=== PATIENT | male | born 1970 | race Caucasian/White ===

== ENCOUNTER 2016-05-15 13:26 | Inpatient (IN) ==
--- NOTE | 2016-05-15 13:57 | Emergency Department Note ---
Disposition Clinical Impression: DKA (diabetic ketoacidoses) Disposition: Admitted As Inpatient Condition: Fair Referrals: NO,PCP [Non-Partnered Physician] - Forms: ED Satisfaction Letter General Adult HPI - General Chief complaint: ED Nausea/Vomiting/Diarrhea Stated complaint: DKA Time Seen by Provider: 05/15/16 13:35 Source: patient, family Limitations: no limitations - History of Present Illness HPI Narrative: 46-year-old male reports to the emergency department complaining of high blood sugars. He has a history of type 1 diabetes and has insulin pump. The patient reports he has been in DKA twice before. The patient reports his blood sugar was checked and it was over 600. He has felt poorly and nauseated. The patient has had no chest pain shortness of breath cough coughing up blood or syncope. There is no history of trauma or morena abdominal pain. No bloody emesis or stool as described. There is no history of fever. The patient reports he gave himself an insulin bolus, is also been drinking as much fluid as he can to try to decrease his blood sugar. There is no history of convulsion or confusion or trouble moving the arms or legs independently. He is here with his father. The patient lives at home. His father brought him in. There is no history of back pain. No history of dysarthria. No other complaints or concerns. Onset (ago): hour(s) Pain Scale: 4 - Related Data Home Medications Medication Instructions Recorded Confirmed Escitalopram Oxalate 2.5 mg PO DAILY 11/27/15 11/27/15 Glucagon, Human Recombinant 1 mg IJ PRN PRN 11/27/15 11/27/15 [GlucaGen] Insulin LISPRO [HumaLOG] 0 units SQ PRN PRN 11/27/15 11/27/15 Allergies Allergy/AdvReac Type Severity Reaction Status Date / Time No Known Allergies Allergy Verified 05/15/16 13:29 All systems ED: reviewed and negative except as stated. Past Medical History - Past Medical History Source: patient Medical history: Reports: diabetes, other Surgical history: Reports: other Psychiatric history: Reports: no psych history - Social History Smoking Status: Never smoker Smokeless Tobacco Status: No Alcohol use: Reports: rarely Drug use: Reports: none Physical Exam - General Limitations: no limitations General appearance: alert, in distress - Head Head exam: atraumatic, normocephalic, normal inspection - Eye Eye exam: Present: normal appearance, PERRL, EOMI - ENT ENT exam: normal exam, normal oropharynx, mucous membranes moist, normal external ear exam - Neck Neck exam: Present: normal inspection, full ROM, trachea midline - Chest Chest inspection: Present: symmetric chest wall rise. Absent: tenderness - Respiratory Respiratory exam: Present: normal lung sounds bilaterally. Absent: respiratory distress - Cardiovascular Cardiovascular exam: Present: regular rate, normal rhythm, normal heart sounds - Abdominal Exam Abdominal exam: Present: soft, Non-Tender. Absent: tenderness, distention, guarding, rebound, rigidity - Extremities Exam Extremities exam: Present: normal inspection, full ROM, normal capillary refill. Absent: tenderness, pedal edema, joint swelling, calf tenderness - Expanded Lower Extremity Exam Hip/Pelvis exam: Present: normal inspection Neurovascular/Tendon exam: Absent: motor deficit, sensory deficit, tendon deficit - Back Exam Back exam: Present: normal inspection, full ROM. Absent: tenderness, CVA tenderness (R), CVA tenderness (L) - Neurological Exam Neurological exam: Present: alert, oriented X3, CN II-XII intact. Absent: motor sensory deficit - Skin Skin exam: Present: warm, dry, intact, normal color. Absent: rash, cyanosis, diaphoresis, erythema, pallor, mottled Course Vital Signs Temperature 97.0 F L 05/15/16 13:27 Pulse Rate 81 05/15/16 13:27 Respiratory Rate 18 05/15/16 13:27 Blood Pressure 106/63 05/15/16 13:27 O2 Sat by Pulse Oximetry 98 05/15/16 13:27 Temperature 97.0 F L 05/15/16 13:27 Pulse Rate 81 05/15/16 16:29 Respiratory Rate 18 05/15/16 16:29 Blood Pressure 125/61 05/15/16 16:29 O2 Sat by Pulse Oximetry 97 05/15/16 16:29 Oxygen Delivery Oxygen Delivery Room Air Medical Decision Making - [facility] Narrative Medical decision making narrative: The patient appears to be in DKA, the patient was given IV fluids and anti- medics. He had dosed himself several times with his home insulin pump. His initial glucose was on the rise but then decreased. An insulin drip has been ordered. The patient appears to be stable. Based on his significant acidosis, known type 1 diabetes, and apparent acute DKA, I consulted the hospitalist product control and logistics analyst who has accepted the patient to their care and he will be admitted to the hospital.. - Lab Data Lab results reviewed: Yes I reviewed the patient's lab results. Result diagrams: 05/15/16 14:02 05/15/16 14:02 Lab Results 05/15/16 05/15/16 05/15/16 Range/Units 13:47 14:02 14:02 WBC 11.3 H (4.3-11.1) K/mcL RBC 5.22 (4.19-5.50) M/mcL Hgb 15.5 (12.9-16.9) g/dL Hct 45.4 (37.5-50.1) % MCV 87.0 (83.0-100.0) fL MCH 29.7 (28.0-33.3) pg MCHC 34.1 (31.6-35.5) g/dL RDW 12.0 (11.5-14.5) % Plt Count 204 (140-400) K/mcL MPV 9.7 (9.4-12.4) fL Immature Gran % 0.3 (0-4) % Seg Neutrophils % 71.5 % Lymphocytes % 23.1 % Monocytes % 4.3 % Eosinophils % 0.4 % Basophils % 0.4 % Neutrophils # 8.1 (1.6-8.9) K/mcL Lymphocytes # 2.6 (0.6-4.6) K/mcL Monocytes # 0.5 (0.0-1.3) K/mcL Eosinophils # 0.0 (0.0-0.6) K/mcL Basophils # 0.0 (0.0-0.2) K/mcL VBG pH (7.32-7.42) pH Units VBG pCO2 (41-51) mmHg VBG pO2 (25-40) mmHg VBG HCO3 (21-27) mEq/L Sodium 133 L (136-145) mEq/L Potassium 4.8 H (3.5-4.5) mEq/L Chloride 98 (98-109) mEq/L Carbon Dioxide 13 L (19-29) mEq/L BUN 20 (8-26) mg/dL Creatinine 1.43 H (0.72-1.25) mg/dL Est GFR ( Amer) > 60 (> 60) Est GFR (Non-Af Amer) 53 L (> 60) BUN/Creatinine Ratio 14 (6-26) Glucose 433 H (70-99) mg/dL POC Glucose 387 H (58-89) Calculated Osmolality 297 (280-300) Calcium 9.7 (8.6-10.8) mg/dL Phosphorus 4.8 H (2.3-4.7) mg/dL Magnesium 2.1 (1.6-2.6) mg/dL Total Bilirubin 1.0 (0.2-1.2) mg/dL Direct Bilirubin 0.3 (0.0-0.5) mg/dL Indirect Bilirubin 0.7 (0.0-1.2) mg/dL AST 25 (5-34) Units/L ALT 33 (0-55) Units/L Alkaline Phosphatase 103 (38-126) Units/L Serum Total Protein 8.6 H (6.0-8.3) g/dL Albumin 4.4 (3.5-5.0) g/dL Globulin 4.2 H (2.4-3.5) g/dL Albumin/Globulin Ratio 1.0 L (1.1-2.2) Lipase 13 (8-78) Units/L Beta-Hydroxybutyric Acd > 2.00 H (0.02-0.27) mmol/L 05/15/16 05/15/16 Range/Units 16:26 16:43 WBC (4.3-11.1) K/mcL RBC (4.19-5.50) M/mcL Hgb (12.9-16.9) g/dL Hct (37.5-50.1) % MCV (83.0-100.0) fL MCH (28.0-33.3) pg MCHC (31.6-35.5) g/dL RDW (11.5-14.5) % Plt Count (140-400) K/mcL MPV (9.4-12.4) fL Immature Gran % (0-4) % Seg Neutrophils % % Lymphocytes % % Monocytes % % Eosinophils % % Basophils % % Neutrophils # (1.6-8.9) K/mcL Lymphocytes # (0.6-4.6) K/mcL Monocytes # (0.0-1.3) K/mcL Eosinophils # (0.0-0.6) K/mcL Basophils # (0.0-0.2) K/mcL VBG pH 7.12 L* (7.32-7.42) pH Units VBG pCO2 35 L (41-51) mmHg VBG pO2 145 H (25-40) mmHg VBG HCO3 11.4 L (21-27) mEq/L Sodium (136-145) mEq/L Potassium (3.5-4.5) mEq/L Chloride (98-109) mEq/L Carbon Dioxide (19-29) mEq/L BUN (8-26) mg/dL Creatinine (0.72-1.25) mg/dL Est GFR ( Amer) (> 60) Est GFR (Non-Af Amer) (> 60) BUN/Creatinine Ratio (6-26) Glucose (70-99) mg/dL POC Glucose 343 H (58-89) Calculated Osmolality (280-300) Calcium (8.6-10.8) mg/dL Phosphorus (2.3-4.7) mg/dL Magnesium (1.6-2.6) mg/dL Total Bilirubin (0.2-1.2) mg/dL Direct Bilirubin (0.0-0.5) mg/dL Indirect Bilirubin (0.0-1.2) mg/dL AST (5-34) Units/L ALT (0-55) Units/L Alkaline Phosphatase (38-126) Units/L Serum Total Protein (6.0-8.3) g/dL Albumin (3.5-5.0) g/dL Globulin (2.4-3.5) g/dL Albumin/Globulin Ratio (1.1-2.2) Lipase (8-78) Units/L Beta-Hydroxybutyric Acd (0.02-0.27) mmol/L
[2016-05-15] MEDS ORDERED: Insulin Human Regular 100 UNIT in 0.9 % Sodium Chloride 100 ML IVC SCH ×3 (14:00→20:45)
[2016-05-15] MEDS ORDERED: 0.9 % Sodium Chloride 1,000 ML IVC SCH ×2 (14:00→18:30)
[2016-05-15 14:08] LABS: Basophils % 0.4 %; Eosinophils % 0.4 %; Hematocrit 45.4 % (37.5-50.1); Hemoglobin 15.5 g/dL (12.9-16.9); Immature Granulocytes % 0.3 % (0-4); Lymphocytes # 2.6 K/mcL (0.6-4.6); Lymphocytes % 23.1 %; Mean Corpuscular HGB Conc 34.1 g/dL (31.6-35.5); Mean Corpuscular Hemoglobin 29.7 pg (28.0-33.3); Mean Platelet Volume 9.7 fL (9.4-12.4); Monocytes # 0.5 K/mcL (0.0-1.3); Monocytes % 4.3 %; Neutrophils # 8.1 K/mcL (1.6-8.9); Platelet Count 204 K/mcL (140-400); Red Blood Count 5.22 M/mcL (4.19-5.50); Segmented Neutrophils % 71.5 %
[2016-05-15] MEDS ORDERED: Ondansetron 4 MG/2 ML VIAL IVP ONE (14:09)
[2016-05-15 14:19] LABS: BUN/Creatinine Ratio 14 (6-26); Blood Urea Nitrogen 20 mg/dL (8-26); Calcium 9.7 mg/dL (8.6-10.8); Carbon Dioxide 13 mEq/L (19-29); Chloride 98 mEq/L (98-109); Glucose 433 mg/dL (70-99); Magnesium 2.1 mg/dL (1.6-2.6); Osmolality,Calculated 297 (280-300); Phosphorous 4.8 mg/dL (2.3-4.7); Potassium 4.8 mEq/L (3.5-4.5); Sodium 133 mEq/L (136-145); eGFR For African Americans > 60 (> 60); eGFR For Non-African Americans 53 (> 60)
[2016-05-15 14:21] LABS: Beta-Hydroxybutyric Acid > 2.00 mmol/L (0.02-0.27)
[2016-05-15 14:34] LABS: Alanine Aminotransferase 33 Units/L (0-55); Albumin 4.4 g/dL (3.5-5.0); Alkaline Phosphatase 103 Units/L (38-126); Aspartate Amino Transferase 25 Units/L (5-34); Bilirubin,Direct 0.3 mg/dL (0.0-0.5); Bilirubin,Indirect 0.7 mg/dL (0.0-1.2); Globulin 4.2 g/dL (2.4-3.5); Lipase 13 Units/L (8-78); Total Protein 8.6 g/dL (6.0-8.3)
[2016-05-15] MEDS ORDERED: *HR* Promethazine 25 MG/ML VIAL IVP ONE (15:57)
[2016-05-15] MEDS: 0.9 % Sodium Chloride 1,000 ML IVC SCH ×2 (16:03→17:20)
[2016-05-15] MEDS ORDERED: Insulin Human Regular 10 UNIT in 0.9 % Sodium Chloride 10 ML IV ONE (16:21)
[2016-05-15 16:38] LABS: VBG HCO3 11.4 mEq/L (21-27)
[2016-05-15 16:40] LABS: VBG PH 7.12 pH Units (7.32-7.42)
[2016-05-15] MEDS ORDERED: *HR* Morphine 2 MG/ML SYRINGE IVP PRN (18:15)
[2016-05-15] MEDS ORDERED: Acetaminophen 325 MG TABLET PO PRN (18:15)
[2016-05-15] MEDS ORDERED: Ondansetron 4 MG/2 ML VIAL IVP PRN (18:15)
[2016-05-15] MEDS ORDERED: Naloxone 0.4 MG/ML INJ IVP PRN (18:15)
[2016-05-15] MEDS ORDERED: Insulin Regular, Human 100 UNIT/ML IV SCH (18:30)
--- NOTE | 2016-05-15 18:46 | Internal Med History&Physical ---
Date of Encounter: 05/15/16 Time of Encounter: 18:00 Assessment and Plan (1) DKA (diabetic ketoacidoses) Current visit: Yes Status: Acute Aggressive IV hydration. Start IV insulin infusion protocol with frequent Accuchecks and Q4hrly BMP monitoring; monitor urine output and vitals closely; check and replete electrolytes; keep NPO for now, hold subcutaneous insulin pump ; high risk condition; Qualifiers: Diabetes mellitus type: type 1 Diabetes mellitus complication detail: without coma Qualified Code(s): E10.10 - Type 1 diabetes mellitus with ketoacidosis without coma (2) Type I diabetes mellitus Current visit: Yes Status: Chronic Check HbA1C; diabetes clinical manager consult; Qualifiers: Diabetes mellitus complication status: with ketoacidosis Diabetes mellitus complication detail: without coma Qualified Code(s): E10.10 - Type 1 diabetes mellitus with ketoacidosis without coma Internal Medicine - H&P: HPI Chief complaint: Weakness, nausea, elevated blood sugars Admitted From: Emergency Dept Plans for Post Hospital Care: Home History of present illness: Mr. Michel is a 46 year old male with h/o- Type 1 DM, on insulin pump, presents with c/o- possibly being in DKA. Patient reports that there has been no recent change in his insulin dosing or dietary or medical noncompliance but he did start new pills for indigestion recently and attributes his condition to them. His blood sugars have been above 600 since yesterday and he took extra boluses of insulin through his pump with no improvement in blood sugars. He started feeling dehydrated with polyuria and polydipsia, nausea and generalized weakness. He just felt very sick and miserable and presented to ER. No chest/abdominal pain, no fever, cough, burning micturition/hematuria/dysuria; Past Med Surg Social Fam HX - Past Medical History Medical history: diabetes (type 1), other Psychiatric history: no psych history - Past Surgical History Surgical History: other (tonsillectomy and adenoidectomy) - Social History Smoking Status: Never smoker Smokeless Tobacco Status: No Alcohol use: rarely Drug use: none Occupational status: employed Current living situation: Home - Independent Activity Level: Independent ambulation Recent Out of Country Travel Within the Last 8 Weeks: No Exposure or Possible Exposure to Illness During Travel: No - Family History Mother Hx Family Autoimmune Disorders: Yes (RA) Father Hx Family Autoimmune Disorders: Yes (Grave's disease) Internal Medicine - H&P: Meds Insulin LISPRO [HumaLOG] 0 units SQ PRN PRN 11/27/15 [History] Allergies No Known Allergies Allergy (Verified 05/15/16 13:29) All Systems PM: A 10-system review of systems was performed and is negative for pertinent findings except as documented above in the HPI. - Constitutional Constitutional: fatigue, malaise, weakness - EENT Eyes: no change in vision, no discharge, no pain, no photophobia Ears: no ear discharge, no ear pain, no tinnitus Nose, mouth and throat: no dysphagia, no nasal discharge, no neck pain, no sore throat - Cardiovascular Cardiovascular ROS IM: no chest pain, no diaphoresis, no dyspnea, no lightheadedness, no palpitations, no syncope - Respiratory Respiratory: no cough, no dyspnea, no wheezing, no excessive phlegm production - Gastrointestinal Gastrointestinal: nausea - Musculoskeletal Musculoskeletal ROS IM: no numbness, no tingling - Integumentary Integumentary IM: no rash, no unusual bruising - Neurological Neurological ROS: no confusion, no convulsions, no focal weakness, no numbness, no tingling, no tremor(s) - Hematologic/Lymphatic Hematologic/Lymphatic: no easy bruising - Constitutional Vitals: Temp Pulse Resp BP Pulse Ox 97.0 F L 81 18 125/61 97 05/15/16 13:27 05/15/16 16:29 05/15/16 16:29 05/15/16 16:29 05/15/16 16:29 General appearance: Present: mild distress, A&O X 3 (slightly drowsy but able to answer appropriately), answers questions appropriately - Head Head exam: Present: atraumatic, normocephalic - Neck Neck exam general surgery: Present: supple, trachea midline. Absent: lymphadenopathy - Respiratory Respiratory exam: Present: CTAB. Absent: accessory muscle use, rales, rhonchi, wheezes - Cardiovascular Cardiovascular exam: Present: RRR, +S1, +S2, tachycardia. Absent: diastolic murmur, gallop, rubs, systolic murmur - GI/Abdominal GI/Abdominal exam: Present: normal bowel sounds, soft, no peritoneal signs. Absent: distended, tenderness - Extremities Exam Extremities exam: Present: full ROM, warm, radial pulses palpable and symetrical. Absent: calf tenderness, cyanotic, pedal edema - Neurological Exam Neurological exam: Present: CN II-XII intact, oriented X3, no focal deficits. Absent: pronater drift, facial droop, speech deficit - Skin Skin exam: Present: dry, intact Internal Med - H&P Results - Labs CBC & Chem 7: 05/16/16 04:56 05/16/16 04:56
[2016-05-15 19:46] LABS: BUN/Creatinine Ratio 17 (6-26); Blood Urea Nitrogen 21 mg/dL (8-26); Calcium 8.6 mg/dL (8.6-10.8); Carbon Dioxide 12 mEq/L (19-29); Chloride 106 mEq/L (98-109); Glucose 303 mg/dL (70-99); Osmolality,Calculated 296 (280-300); Potassium 4.9 mEq/L (3.5-4.5); Sodium 136 mEq/L (136-145); eGFR For African Americans > 60 (> 60); eGFR For Non-African Americans > 60 (> 60)
[2016-05-15] MEDS ORDERED: 0.9 % Sodium Chloride w KCl 20 MEQ/1,000 ML MLS IVC ONE (20:23)
[2016-05-15] MEDS ORDERED: 0.9 % Sodium Chloride w KCl 20 MEQ/1,000 ML MLS IVC SCH (20:45)
[2016-05-15] MEDS: D5% in 0.45% NACL w KCl 20 MEQ/1,000 ML MLS IVC PRN (22:40)
[2016-05-15] MEDS: Insulin Human Regular 100 UNIT in 0.9 % Sodium Chloride 100 ML IVC SCH (22:43)
[2016-05-15 22:45] LABS: BUN/Creatinine Ratio 17 (6-26); Blood Urea Nitrogen 19 mg/dL (8-26); Calcium 8.5 mg/dL (8.6-10.8); Carbon Dioxide 12 mEq/L (19-29); Chloride 109 mEq/L (98-109); Glucose 175 mg/dL (70-99); Osmolality,Calculated 285 (280-300); Potassium 4.6 mEq/L (3.5-4.5); Sodium 134 mEq/L (136-145); eGFR For African Americans > 60 (> 60); eGFR For Non-African Americans > 60 (> 60)
[2016-05-16] MEDS ORDERED: 0.9 % Sodium Chloride 250 ML ONE (00:35)
[2016-05-16] MEDS: D5% in 0.45% NACL w KCl 20 MEQ/1,000 ML MLS IVC PRN (02:40)
[2016-05-16] MEDS: *HR* Dextrose 50 % in Water (Syg) 50 ML SYRINGE IVP PRN ×2 (03:37→04:32)
[2016-05-16] MEDS: Insulin Human Regular 100 UNIT in 0.9 % Sodium Chloride 100 ML IVC SCH (03:38)
[2016-05-16 05:16] LABS: Basophils % 0.2 %; Eosinophils # 0.1 K/mcL (0.0-0.6); Eosinophils % 0.8 %; Hematocrit 36.9 % (37.5-50.1); Immature Granulocytes % 0.5 % (0-4); Lymphocytes # 2.1 K/mcL (0.6-4.6); Lymphocytes % 21.8 %; Mean Corpuscular HGB Conc 34.7 g/dL (31.6-35.5); Mean Corpuscular Hemoglobin 29.7 pg (28.0-33.3); Mean Corpuscular Volume 85.6 fL (83.0-100.0); Mean Platelet Volume 9.7 fL (9.4-12.4); Monocytes # 1.3 K/mcL (0.0-1.3); Monocytes % 13.7 %; Neutrophils # 6.1 K/mcL (1.6-8.9); Platelet Count 198 K/mcL (140-400); Red Blood Count 4.31 M/mcL (4.19-5.50); Red Cell Distribution Width 12.1 % (11.5-14.5)
[2016-05-16 05:19] LABS: VBG PH 7.34 pH Units (7.32-7.42)
[2016-05-16 05:33] LABS: Hemoglobin A1C 10.6 %
[2016-05-16 05:44] LABS: Hemoglobin 12.8 g/dL (12.9-16.9)
[2016-05-16 05:48] LABS: BUN/Creatinine Ratio 14 (6-26); Blood Urea Nitrogen 15 mg/dL (8-26); Calcium 8.2 mg/dL (8.6-10.8); Carbon Dioxide 19 mEq/L (19-29); Chloride 110 mEq/L (98-109); Glucose 139 mg/dL (70-99); Osmolality,Calculated 283 (280-300); Potassium 4.2 mEq/L (3.5-4.5); Sodium 135 mEq/L (136-145); eGFR For African Americans > 60 (> 60); eGFR For Non-African Americans > 60 (> 60)
[2016-05-16] MEDS ORDERED: *HR* Heparin 5,000 UNIT/ML VIAL SQ SCH (06:00)
[2016-05-16] MEDS ORDERED: D5% in Water 1,000 ML IV PRN ×2 (06:28→07:15)
[2016-05-16] MEDS ORDERED: Dextrose Gel 15 GM PO PRN ×2 (06:28)
[2016-05-16] MEDS ORDERED: *HR* Dextrose 50 % in Water (Syg) 50 ML SYRINGE IVP PRN (06:28)
[2016-05-16] MEDS ORDERED: Insulin DETEMIR 100 UNIT/ML X5UNITS SQ STA (06:30)
[2016-05-16 07:24] VITALS: BP 91/61
[2016-05-16] MEDS ORDERED: Insulin LISPRO 300 UNITS/3 ML VIAL SQ SCH ×2 (07:30→21:00)
[2016-05-16] MEDS ORDERED: Pantoprazole 40 MG VIAL IVP SCH (09:00)
--- NOTE | 2016-05-16 09:19 | Discharge Summary ---
Date of Encounter: 05/16/16 Time of Encounter: 09:17 - Discharge Diagnosis (1) DKA (diabetic ketoacidoses) Priority: Primary Status: Acute Comments: Likely secondary to acute gastroenteritis Qualifiers: Diabetes mellitus type: type 1 Diabetes mellitus complication detail: without coma Qualified Code(s): E10.10 - Type 1 diabetes mellitus with ketoacidosis without coma (2) Gastroenteritis Priority: Primary Status: Acute Comments: Acute gastroenteritis Possibly viral, improving (3) Leukocytosis Priority: Secondary Status: Acute Comments: Secondary to gastroenteritis Qualifiers: Leukocytosis type: unspecified Qualified Code(s): D72.829 - Elevated white blood cell count, unspecified (4) Acute renal failure Priority: Primary Status: Acute Comments: Secondary to dehydration Qualifiers: Acute renal failure type: unspecified Qualified Code(s): N17.9 - Acute kidney failure, unspecified (5) Dehydration Priority: Secondary Status: Acute (6) Type I diabetes mellitus Priority: Secondary Status: Chronic Qualifiers: Diabetes mellitus complication status: with ketoacidosis Diabetes mellitus complication detail: without coma Qualified Code(s): E10.10 - Type 1 diabetes mellitus with ketoacidosis without coma (7) High anion gap metabolic acidosis Priority: Primary Status: Acute - Discharge Medications Home Medications: Insulin LISPRO [HumaLOG] 0 units SQ PRN PRN 11/27/15 [History] Allergies/Adverse Reactions: Allergies No Known Allergies Allergy (Verified 05/15/16 13:29) Date of admission: 05/15/16 19:08 Primary care physician: Jenaro Doherty MD - Patient Status Disposition: Home, Self-Care Condition: Good Overall status at discharge: patient is progressing back to baseline - Discharge Instructions Follow Up With: Jenaro Doherty MD [Primary Care Provider] - 05/23/16 10:15 am Additional Instructions: Follow with primary care physician within the next 7 days. Continue insulin pump. Drink plenty of fluids. - Diet and Activity Activity: increase activity as tolerated Diet: diabetic diet Hospital course: Mr. Michel is a 46 year old male with h/o- Type 1 DM, on insulin pump, presents with c/o- possibly being in DKA. Patient reported that there was no recent change in his insulin dosing or dietary or medical noncompliance but he did start new pills for indigestion recently and attributes his condition to them. His blood sugars have been above 600 since the day before his admission and he took extra boluses of insulin through his pump with no improvement in blood sugars. He started feeling weak, was dehydrated and complaining of polyuria and polydipsia, nausea and generalized weakness. He just felt very sick and miserable and presented to ER. Abdominal pain, nausea have resolved, denies any diarrhea moment. His anion gap was 22 and he is bicarbonate was 12. The patient was started on insulin drip, his anion gap Is closed at the moment (6), bicarbonate is 19. Patient is a stable to be discharged home. Restart insulin pump - Time Spent with Patient Total time spent providing and/or coordinating discharge services: Greater than 30 minutes - Constitutional Vitals: Temp Pulse Resp BP Pulse Ox 98.4 F 79 16 91/61 97 05/16/16 07:21 05/16/16 07:21 05/16/16 07:21 05/16/16 07:21 05/16/16 07:21 General appearance: Present: mild distress, A&O X 3 (slightly drowsy but able to answer appropriately), underweight, answers questions appropriately - Head Head exam: Present: atraumatic, normocephalic - Eye Eye exam: Present: PERRL, conjuntiva pink, sclera anicteric Pupils: Present: PERRL - Neck Neck exam general surgery: Present: supple, trachea midline. Absent: lymphadenopathy - Respiratory Respiratory exam: Present: CTAB. Absent: accessory muscle use, rales, rhonchi, wheezes - Cardiovascular Cardiovascular exam: Present: RRR, +S1, +S2. Absent: diastolic murmur, gallop, rubs, systolic murmur - GI/Abdominal GI/Abdominal exam: Present: normal bowel sounds, soft, no peritoneal signs. Absent: distended, tenderness - Extremities Exam Extremities exam: Present: warm, radial pulses palpable and symetrical. Absent : calf tenderness, cyanotic, pedal edema - Neurological Exam Neurological exam: Present: CN II-XII intact, oriented X3, no focal deficits. Absent: pronater drift, facial droop, speech deficit - Skin Skin exam: Present: dry, intact
--- NOTE | 2016-05-16 16:37 | Electrocardiograph Report ---
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
[2016-05-16] MEDS ORDERED: Insulin DETEMIR 100 UNIT/ML X5UNITS SQ SCH (21:00)
== END 2016-05-16 11:00 | disposition home or self-care (01) | DRG 420 ==
LOC: 2NNU 13:26 → EMEROO 13:26 → 2NNU 18:46 → SUATTDRO 19:08 → 2NNU 20:09
PROVIDERS: ADMIT Internal Medicine; ATTEND Internal Medicine

== ENCOUNTER 2018-04-05 07:49 | Inpatient (IN) ==
[2018-04-05 08:30] LABS: Basophils % 0.3 %; Eosinophils % 0.1 %; Hemoglobin 14.9 g/dL (12.9-16.9); Immature Granulocytes % 0.6 % (0-4); Lymphocytes # 2.1 K/mcL (0.6-4.6); Mean Corpuscular HGB Conc 33.1 g/dL (31.6-35.5); Mean Corpuscular Hemoglobin 29.5 pg (28.0-33.3); Mean Corpuscular Volume 89.1 fL (83.0-100.0); Mean Platelet Volume 9.7 fL (9.4-12.4); Monocytes # 0.4 K/mcL (0.0-1.3); Neutrophils # 7.7 K/mcL (1.6-8.9); Platelet Count 195 K/mcL (140-400); Red Blood Count 5.05 M/mcL (4.19-5.50)
[2018-04-05] MEDS ORDERED: 0.9 % Sodium Chloride 1,000 ML ONE (08:30)
--- NOTE | 2018-04-05 08:37 | Emergency Department Note ---
Disposition Clinical Impression: DKA (diabetic ketoacidoses) Qualifiers: Diabetes mellitus type: type 1 Diabetes mellitus complication detail: without coma Qualified Code(s): E10.10 - Type 1 diabetes mellitus with ketoacidosis without coma Disposition: Admitted As Inpatient Condition: Fair General Adult HPI - General Chief complaint: ED General Medical Stated complaint: DKA Time Seen by Provider: 04/05/18 07:59 Source: patient, family Mode of arrival: private vehicle Limitations: no limitations Nursing Notes Reviewed: Yes Vital Signs Reviewed: Yes - History of Present Illness Pt Subjective Complaint: "My ketones are up and I feel terrible" Onset (ago): hour(s) (since last night) Location: other (generalized malaise, nausea) Radiation: non-radiation Pain Severity: moderate Pain Scale: 7 Quality: other (nauseated) Consistency: constant Improves with: nothing Worsens with: nothing Associated symptoms: Reports: malaise, nausea/vomiting. Denies: confusion, chest pain, cough, diaphoresis, fever/chills, headaches, loss of appetite, rash, seizure, shortness of breath, syncope, weakness Treatments Prior to Arrival: other (patient was here for 2 days for treatment of DKA. D/C'd yesterday) - Related Data Home Medications Medication Instructions Recorded Confirmed RX: Subcutaneous Insulin Pump 1 each MC AD 04/03/18 04/05/18 [T:Slim] Allergies Allergy/AdvReac Type Severity Reaction Status Date / Time No Known Allergies Allergy Verified 04/05/18 07:56 All systems ED: reviewed and negative except as stated. Review of Systems: As Per HPI Constitutional: Denies: fever, chills, weakness Eyes: Denies: eye pain, eye discharge ENT ED: Denies: ear pain, throat pain, dysphagia Cardiovascular: Denies: chest pain, palpitations Respiratory: Denies: cough, dyspnea, wheezes Gastrointestinal: Reports: as per HPI, nausea, vomiting. Denies: abdominal pain, diarrhea, constipation Genitourinary: Denies: urgency, dysuria, frequency Musculoskeletal: Denies: joint swelling, arthralgia Integumentary: Denies: rash Neurological: Denies: headache, weakness, numbness, paresthesias, vertigo Endocrine: Reports: fatigue Hematological/Lymphatic: Denies: easy bleeding, easy bruising, lymphadenopathy Allergic/Immunologic: Denies: facial swelling Past Medical History - Past Medical History Attestation: Yes The following information was validated with the patient. Source: patient, old records reviewed, obtained from family Medical history: Reports: diabetes, other Surgical history: Reports: other Psychiatric history: Reports: no psych history - Social History Smoking Status: Never smoker Smokeless Tobacco Status: No Alcohol use: Reports: rarely Drug use: Reports: none Physical Exam - General Limitations: no limitations General appearance: alert, anxious - Head Head exam: atraumatic, normocephalic, normal inspection - Eye Eye exam: Present: normal appearance, PERRL. Absent: scleral icterus, conjunctival injection, periorbital swelling - ENT ENT exam: mucous membranes dry - Neck Neck exam: Present: normal inspection, full ROM, trachea midline. Absent: tenderness, meningismus, lymphadenopathy - Chest Chest inspection: Present: normal inspection - Respiratory Respiratory exam: Present: normal lung sounds bilaterally. Absent: respiratory distress - Cardiovascular Cardiovascular exam: Present: normal rhythm, tachycardia - Abdominal Exam Abdominal exam: Present: soft, Non-Tender. Absent: distention, guarding, rebo und, rigidity, mass, pulsatile mass - Extremities Exam Extremities exam: Present: normal inspection, full ROM, normal capillary refill - Neurological Exam Neurological exam: Present: alert, oriented X3, CN II-XII intact, normal gait - Psychiatric Psychiatric exam: Present: normal affect, anxious - Skin Skin exam: Present: warm, dry, intact, normal color Course Course Narrative: Patient is brought to the ER by his father for evaluation of elevated blood sugar and ketones in the urine. He states he was discharged from here yesterday and since last night his sugar has been elevated. He has had ketones in his urine along with significant nausea, several episodes of nonbloody, nonbilious emesis and generalized malaise. He denies cough, chest pain, shortness of breath, URI symptoms, abdominal pain, dysuria, diarrhea, rashes, joint pain or swelling. Patient was interviewed and examined. I see no obvious signs of an infectious process. He is mildly tachycardic. Otherwise, vitals are normal. Labs, antiemetics and fluids have been ordered. Patient's nausea is better. He is resting comfortably. He is tolerating by mouth fluids. His labs show significant acidosis and ketosis. Blood sugars greater than 500. Additional fluids ordered along with an insulin drip. Patient will require admission for further evaluation and treatment. Hospitalist has been paged. Case discussed with Dr. Valdovinos. He has had [id number] time with the patient and agrees with the assessment and plan. Vital Signs Temperature 97.5 F L 04/05/18 07:55 Pulse Rate 116 04/05/18 07:55 Respiratory Rate 18 04/05/18 07:55 Blood Pressure 130/71 04/05/18 07:55 O2 Sat by Pulse Oximetry 100 04/05/18 07:55 Temperature 98.0 F 04/05/18 16:00 Pulse Rate 104 04/05/18 14:30 Respiratory Rate 18 04/05/18 14:30 Blood Pressure 128/81 04/05/18 14:30 O2 Sat by Pulse Oximetry 100 04/05/18 14:30 Oxygen Delivery Oxygen Delivery Room Air Medical Decision Making - Medical Records Medical records reviewed: Yes I reviewed the patient's medical records. - Lab Data Lab results reviewed: Yes I reviewed the patient's lab results. Lab results narrative: Laboratory Last Values WBC 10.2 K/mcL (4.3-11.1) 04/05/18 08:14 RBC 5.05 M/mcL (4.19-5.50) 04/05/18 08:14 Hgb 14.9 g/dL (12.9-16.9) 04/05/18 08:14 Hct 45.0 % (37.5-50.1) 04/05/18 08:14 MCV 89.1 fL (83.0-100.0) 04/05/18 08:14 MCH 29.5 pg (28.0-33.3) 04/05/18 08:14 MCHC 33.1 g/dL (31.6-35.5) 04/05/18 08:14 RDW 13.0 % (11.5-14.5) 04/05/18 08:14 Plt Count 195 K/mcL (140-400) 04/05/18 08:14 MPV 9.7 fL (9.4-12.4) 04/05/18 08:14 Immature Gran % 0.6 % (0-4) 04/05/18 08:14 Seg Neutrophils % 75.0 % 04/05/18 08:14 Lymphocytes % 20.0 % 04/05/18 08:14 Monocytes % 4.0 % 04/05/18 08:14 Eosinophils % 0.1 % 04/05/18 08:14 Basophils % 0.3 % 04/05/18 08:14 Neutrophils # 7.7 K/mcL (1.6-8.9) 04/05/18 08:14 Lymphocytes # 2.1 K/mcL (0.6-4.6) 04/05/18 08:14 Monocytes # 0.4 K/mcL (0.0-1.3) 04/05/18 08:14 Eosinophils # 0.0 K/mcL (0.0-0.6) 04/05/18 08:14 Basophils # 0.0 K/mcL (0.0-0.2) 04/05/18 08:14 Sample Site R Radial 04/05/18 09:18 ABG pH 7.10 pH Units (7.32-7.45) L* 04/05/18 09:18 ABG pCO2 13 mmHg (35-45) L* 04/05/18 09:18 ABG pO2 118 mmHg (85-104) H 04/05/18 09:18 ABG HCO3 4 mEq/L (21-27) L 04/05/18 09:18 ABG Total CO2 < 5 mEq/L (20-26) L 04/05/18 09:18 ABG O2 Saturation 97 % (95-98) 04/05/18 09:18 ABG Base Excess -23 mEq/L (-2 to 3) L 04/05/18 09:18 Santiago Test Positive 04/05/18 09:18 O2 Delivery Device Room Air 04/05/18 09:18 Sodium 131 mEq/L (136-145) L 04/05/18 08:14 Potassium 5.2 mEq/L (3.5-5.1) H D 04/05/18 08:14 Chloride 99 mEq/L (98-107) 04/05/18 08:14 Carbon Dioxide 6 mEq/L (23-29) L* 04/05/18 08:14 BUN 21 mg/dL (6-20) H 04/05/18 08:14 Creatinine 1.20 mg/dL (0.70-1.30) 04/05/18 08:14 Est GFR ( Amer) > 60 (> 60) 04/05/18 08:14 Est GFR (Non-Af Amer) > 60 (> 60) 04/05/18 08:14 BUN/Creatinine Ratio 18 (6-26) 04/05/18 08:14 Glucose 504 mg/dL (70-105) H* 04/05/18 08:14 Calculated Osmolality 298 (280-300) 04/05/18 08:14 Calcium 9.7 mg/dL (8.6-10.3) 04/05/18 08:14 Magnesium 2.1 mg/dL (1.6-2.6) 04/05/18 08:14 Total Bilirubin 0.7 mg/dL (0.3-1.0) 04/05/18 08:14 AST 19 Units/L (13-39) 04/05/18 08:14 ALT 26 Units/L (7-52) 04/05/18 08:14 Alkaline Phosphatase 74 Units/L (34-104) 04/05/18 08:14 Serum Total Protein 8.2 g/dL (6.4-8.9) 04/05/18 08:14 Albumin 4.8 g/dL (3.5-5.7) 04/05/18 08:14 Globulin 3.4 g/dL (2.4-3.5) 04/05/18 08:14 Albumin/Globulin Ratio 1.4 (1.1-2.2) 04/05/18 08:14 Beta-Hydroxybutyric Acd 2.00 mmol/L (0.02-0.27) H 04/05/18 08:14 Urine Color Yellow (Yellow) 04/05/18 08:30 Urine Clarity Clear (Clear) 04/05/18 08:30 Urine pH 5.0 pH Units (5.0-8.0) 04/05/18 08:30 Ur Specific [place] 1.028 (1.010-1.025) H 04/05/18 08:30 Urine Protein Trace mg/dL (Neg-Trace) 04/05/18 08:30 Urine Glucose (UA) >=1000 mg/dL (Normal) H 04/05/18 08:30 Urine Ketones >=160 mg/dL (Negative) H 04/05/18 08:30 Urine Blood Trace (Negative) H 04/05/18 08:30 Urine Nitrite Negative (Negative) 04/05/18 08:30 Urine Bilirubin Negative (Negative) 04/05/18 08:30 Urine Urobilinogen Normal mg/dL (Normal) 04/05/18 08:30 Ur Leukocyte Esterase Negative (Negative) 04/05/18 08:30 Urine Microscopic RBC 0-3 per hpf (0-3) 04/05/18 08:30 Urine Microscopic WBC 0-3 per hpf (0-3) 04/05/18 08:30 Ur Squamous Epith Cells None Seen per lpf (None-Few) 04/05/18 08:30 Urine Bacteria None Seen per hpf (None-Few) 04/05/18 08:30 Hyaline Casts None Seen per lpf (None-Few) 04/05/18 08:30 Ur Culture Indicated? NO (NO) 04/05/18 08:30 Result diagrams: 04/05/18 08:14 04/05/18 12:09 Lab Results 04/05/18 04/05/18 04/05/18 Range/Units 08:14 08:14 08:14 WBC 10.2 (4.3-11.1) K/mcL RBC 5.05 (4.19-5.50) M/mcL Hgb 14.9 (12.9-16.9) g/dL Hct 45.0 (37.5-50.1) % MCV 89.1 (83.0-100.0) fL MCH 29.5 (28.0-33.3) pg MCHC 33.1 (31.6-35.5) g/dL RDW 13.0 (11.5-14.5) % Plt Count 195 (140-400) K/mcL MPV 9.7 (9.4-12.4) fL Immature Gran % 0.6 (0-4) % Seg Neutrophils % 75.0 % Lymphocytes % 20.0 % Monocytes % 4.0 % Eosinophils % 0.1 % Basophils % 0.3 % Neutrophils # 7.7 (1.6-8.9) K/mcL Lymphocytes # 2.1 (0.6-4.6) K/mcL Monocytes # 0.4 (0.0-1.3) K/mcL Eosinophils # 0.0 (0.0-0.6) K/mcL Basophils # 0.0 (0.0-0.2) K/mcL Sample Site ABG pH (7.32-7.45) pH Units ABG pCO2 (35-45) mmHg ABG pO2 (85-104) mmHg ABG HCO3 (21-27) mEq/L ABG Total CO2 (20-26) mEq/L ABG O2 Saturation (95-98) % ABG Base Excess (-2 to 3) mEq/L Santiago Test O2 Delivery Device Sodium 131 L (136-145) mEq/L Potassium 5.2 H D (3.5-5.1) mEq/L Chloride 99 (98-107) mEq/L Carbon Dioxide 6 L* (23-29) mEq/L BUN 21 H (6-20) mg/dL Creatinine 1.20 (0.70-1.30) mg/dL Est GFR ( Amer) > 60 (> 60) Est GFR (Non-Af Amer) > 60 (> 60) BUN/Creatinine Ratio 18 (6-26) Glucose 504 H* (70-105) mg/dL Calculated Osmolality 298 (280-300) Calcium 9.7 (8.6-10.3) mg/dL Magnesium 2.1 (1.6-2.6) mg/dL Total Bilirubin 0.7 (0.3-1.0) mg/dL AST 19 (13-39) Units/L ALT 26 (7-52) Units/L Alkaline Phosphatase 74 (34-104) Units/L Serum Total Protein 8.2 (6.4-8.9) g/dL Albumin 4.8 (3.5-5.7) g/dL Globulin 3.4 (2.4-3.5) g/dL Albumin/Globulin Ratio 1.4 (1.1-2.2) Beta-Hydroxybutyric Acd 2.00 H (0.02-0.27) mmol/L Urine Color (Yellow) Urine Clarity (Clear) Urine pH (5.0-8.0) pH Units Ur Specific [place] (1.010-1.025) Urine Protein (Neg-Trace) mg/dL Urine Glucose (UA) (Normal) mg/dL Urine Ketones (Negative) mg/dL Urine Blood (Negative) Urine Nitrite (Negative) Urine Bilirubin (Negative) Urine Urobilinogen (Normal) mg/dL Ur Leukocyte Esterase (Negative) Urine Microscopic RBC (0-3) per hpf Urine Microscopic WBC (0-3) per hpf Ur Squamous Epith Cells (None-Few) per lpf Urine Bacteria (None-Few) per hpf Hyaline Casts (None-Few) per lpf Ur Culture Indicated? (NO) 04/05/18 04/05/18 Range/Units 08:30 09:18 WBC (4.3-11.1) K/mcL RBC (4.19-5.50) M/mcL Hgb (12.9-16.9) g/dL Hct (37.5-50.1) % MCV (83.0-100.0) fL MCH (28.0-33.3) pg MCHC (31.6-35.5) g/dL RDW (11.5-14.5) % Plt Count (140-400) K/mcL MPV (9.4-12.4) fL Immature Gran % (0-4) % Seg Neutrophils % % Lymphocytes % % Monocytes % % Eosinophils % % Basophils % % Neutrophils # (1.6-8.9) K/mcL Lymphocytes # (0.6-4.6) K/mcL Monocytes # (0.0-1.3) K/mcL Eosinophils # (0.0-0.6) K/mcL Basophils # (0.0-0.2) K/mcL Sample Site R Radial ABG pH 7.10 L* (7.32-7.45) pH Units ABG pCO2 13 L* (35-45) mmHg ABG pO2 118 H (85-104) mmHg ABG HCO3 4 L (21-27) mEq/L ABG Total CO2 < 5 L (20-26) mEq/L ABG O2 Saturation 97 (95-98) % ABG Base Excess -23 L (-2 to 3) mEq/L Santiago Test Positive O2 Delivery Device Room Air Sodium (136-145) mEq/L Potassium (3.5-5.1) mEq/L Chloride (98-107) mEq/L Carbon Dioxide (23-29) mEq/L BUN (6-20) mg/dL Creatinine (0.70-1.30) mg/dL Est GFR ( Amer) (> 60) Est GFR (Non-Af Amer) (> 60) BUN/Creatinine Ratio (6-26) Glucose (70-105) mg/dL Calculated Osmolality (280-300) Calcium (8.6-10.3) mg/dL Magnesium (1.6-2.6) mg/dL Total Bilirubin (0.3-1.0) mg/dL AST (13-39) Units/L ALT (7-52) Units/L Alkaline Phosphatase (34-104) Units/L Serum Total Protein (6.4-8.9) g/dL Albumin (3.5-5.7) g/dL Globulin (2.4-3.5) g/dL Albumin/Globulin Ratio (1.1-2.2) Beta-Hydroxybutyric Acd (0.02-0.27) mmol/L Urine Color Yellow (Yellow) Urine Clarity Clear (Clear) Urine pH 5.0 (5.0-8.0) pH Units Ur Specific [place] 1.028 H (1.010-1.025) Urine Protein Trace (Neg-Trace) mg/dL Urine Glucose (UA) >=1000 H (Normal) mg/dL Urine Ketones >=160 H (Negative) mg/dL Urine Blood Trace H (Negative) Urine Nitrite Negative (Negative) Urine Bilirubin Negative (Negative) Urine Urobilinogen Normal (Normal) mg/dL Ur Leukocyte Esterase Negative (Negative) Urine Microscopic RBC 0-3 (0-3) per hpf Urine Microscopic WBC 0-3 (0-3) per hpf Ur Squamous Epith Cells None Seen (None-Few) per lpf Urine Bacteria None Seen (None-Few) per hpf Hyaline Casts None Seen (None-Few) per lpf Ur Culture Indicated? NO (NO)
[2018-04-05] MEDS: Metoclopramide 10 MG/2 ML VIAL IVP ONE ×2 (08:42→08:43)
[2018-04-05 09:00] LABS: Bilirubin,Urine Negative (Negative); Blood,Urine Trace (Negative); Clarity,Urine Clear (Clear); Color,Urine Yellow (Yellow); Glucose,Urine (UA) >=1000 mg/dL (Normal); Ketones,Urine >=160 mg/dL (Negative); Leukocyte Esterase,Urine Negative (Negative); Nitrite,Urine Negative (Negative); Protein,Urine Trace mg/dL (Neg-Trace); Specific Gravity,Urine 1.028 (1.010-1.025); Urobilinogen,Urine Normal (Normal)
[2018-04-05 09:00] LABS: Alanine Aminotransferase 26 Units/L (7-52); Albumin 4.8 g/dL (3.5-5.7); Albumin/Globulin Ratio 1.4 (1.1-2.2); Alkaline Phosphatase 74 Units/L (34-104); Aspartate Amino Transferase 19 Units/L (13-39); BUN/Creatinine Ratio 18 (6-26); Bilirubin,Total 0.7 mg/dL (0.3-1.0); Blood Urea Nitrogen 21 mg/dL (6-20); Calcium 9.7 mg/dL (8.6-10.3); Carbon Dioxide 6 mEq/L (23-29); Chloride 99 mEq/L (98-107); Globulin 3.4 g/dL (2.4-3.5); Glucose 504 mg/dL (70-105); Magnesium 2.1 mg/dL (1.6-2.6); Osmolality,Calculated 298 (280-300); Potassium 5.2 mEq/L (3.5-5.1); Sodium 131 mEq/L (136-145); Total Protein 8.2 g/dL (6.4-8.9); eGFR For Non-African Americans > 60 (> 60)
[2018-04-05 09:03] LABS: Bacteria,Urine None Seen per hpf (None-Few); Hyaline Casts,Urine None Seen per lpf (None-Few); RBC,Urine 0-3 per hpf (0-3); Squamous Epithelial Cell,Urine None Seen per lpf (None-Few); WBC,Urine 0-3 per hpf (0-3)
[2018-04-05] MEDS: 0.9 % Sodium Chloride 1,000 ML IVC SCH ×2 (09:03→09:35)
[2018-04-05 09:22] LABS: ABG Base Excess -23 mEq/L (-2 to 3); ABG HCO3 4 mEq/L (21-27); ABG Oxygen Saturation 97 % (95-98); ABG PCO2 13 mmHg (35-45); ABG PO2 118 mmHg (85-104); ABG TCO2 < 5 mEq/L (20-26)
--- NOTE | 2018-04-05 10:02 | Emergency Department Note ---
Disposition Clinical Impression: DKA (diabetic ketoacidoses) Qualifiers: Diabetes mellitus type: type 1 Diabetes mellitus complication detail: without coma Qualified Code(s): E10.10 - Type 1 diabetes mellitus with ketoacidosis without coma Disposition: Admitted As Inpatient Condition: Fair General Adult HPI - General Chief complaint: ED General Medical Stated complaint: DKA Time Seen by Provider: 04/05/18 07:59 Source: patient, family Mode of arrival: private vehicle Limitations: no limitations Nursing Notes Reviewed: Yes Vital Signs Reviewed: Yes - History of Present Illness Location: other (generalized malaise, nausea) Pain Scale: 7 Quality: other (nauseated) Improves with: nothing Worsens with: nothing Associated symptoms: Reports: malaise, nausea/vomiting. Denies: confusion, chest pain, cough, diaphoresis, fever/chills, headaches, loss of appetite, rash, seizure, shortness of breath, syncope, weakness Treatments Prior to Arrival: other (patient was here for 2 days for treatment of DKA. D/C'd yesterday) - Related Data Home Medications Medication Instructions Recorded Confirmed RX: Subcutaneous Insulin Pump 1 each MC AD 04/03/18 04/05/18 [T:Slim] Allergies Allergy/AdvReac Type Severity Reaction Status Date / Time No Known Allergies Allergy Verified 04/05/18 07:56 Past Medical History - Past Medical History Medical history: Reports: diabetes, other Surgical history: Reports: other Psychiatric history: Reports: no psych history - Social History Smoking Status: Never smoker Smokeless Tobacco Status: No Alcohol use: Reports: rarely Drug use: Reports: none Physical Exam - General Limitations: no limitations General appearance: alert, in no apparent distress Course Vital Signs Temperature 97.5 F L 04/05/18 07:55 Pulse Rate 116 04/05/18 07:55 Respiratory Rate 18 04/05/18 07:55 Blood Pressure 130/71 04/05/18 07:55 O2 Sat by Pulse Oximetry 100 04/05/18 07:55 Temperature 97.8 F 04/05/18 10:52 Pulse Rate 103 04/05/18 13:15 Respiratory Rate 16 04/05/18 13:15 Blood Pressure 120/75 04/05/18 13:15 O2 Sat by Pulse Oximetry 100 04/05/18 13:15 Oxygen Delivery Oxygen Delivery Room Air Medical Decision Making - Lab Data Result diagrams: 04/05/18 08:14 04/05/18 12:09 Lab Results 04/05/18 04/05/18 04/05/18 Range/Units 08:14 08:14 08:14 WBC 10.2 (4.3-11.1) K/mcL RBC 5.05 (4.19-5.50) M/mcL Hgb 14.9 (12.9-16.9) g/dL Hct 45.0 (37.5-50.1) % MCV 89.1 (83.0-100.0) fL MCH 29.5 (28.0-33.3) pg MCHC 33.1 (31.6-35.5) g/dL RDW 13.0 (11.5-14.5) % Plt Count 195 (140-400) K/mcL MPV 9.7 (9.4-12.4) fL Immature Gran % 0.6 (0-4) % Seg Neutrophils % 75.0 % Lymphocytes % 20.0 % Monocytes % 4.0 % Eosinophils % 0.1 % Basophils % 0.3 % Neutrophils # 7.7 (1.6-8.9) K/mcL Lymphocytes # 2.1 (0.6-4.6) K/mcL Monocytes # 0.4 (0.0-1.3) K/mcL Eosinophils # 0.0 (0.0-0.6) K/mcL Basophils # 0.0 (0.0-0.2) K/mcL Sample Site ABG pH (7.32-7.45) pH Units ABG pCO2 (35-45) mmHg ABG pO2 (85-104) mmHg ABG HCO3 (21-27) mEq/L ABG Total CO2 (20-26) mEq/L ABG O2 Saturation (95-98) % ABG Base Excess (-2 to 3) mEq/L Santiago Test O2 Delivery Device Sodium 131 L (136-145) mEq/L Potassium 5.2 H D (3.5-5.1) mEq/L Chloride 99 (98-107) mEq/L Carbon Dioxide 6 L* (23-29) mEq/L BUN 21 H (6-20) mg/dL Creatinine 1.20 (0.70-1.30) mg/dL Est GFR ( Amer) > 60 (> 60) Est GFR (Non-Af Amer) > 60 (> 60) BUN/Creatinine Ratio 18 (6-26) Glucose 504 H* (70-105) mg/dL Calculated Osmolality 298 (280-300) Calcium 9.7 (8.6-10.3) mg/dL Magnesium 2.1 (1.6-2.6) mg/dL Total Bilirubin 0.7 (0.3-1.0) mg/dL AST 19 (13-39) Units/L ALT 26 (7-52) Units/L Alkaline Phosphatase 74 (34-104) Units/L Serum Total Protein 8.2 (6.4-8.9) g/dL Albumin 4.8 (3.5-5.7) g/dL Globulin 3.4 (2.4-3.5) g/dL Albumin/Globulin Ratio 1.4 (1.1-2.2) Beta-Hydroxybutyric Acd 2.00 H (0.02-0.27) mmol/L Urine Color (Yellow) Urine Clarity (Clear) Urine pH (5.0-8.0) pH Units Ur Specific [employer] (1.010-1.025) Urine Protein (Neg-Trace) mg/dL Urine Glucose (UA) (Normal) mg/dL Urine Ketones (Negative) mg/dL Urine Blood (Negative) Urine Nitrite (Negative) Urine Bilirubin (Negative) Urine Urobilinogen (Normal) mg/dL Ur Leukocyte Esterase (Negative) Urine Microscopic RBC (0-3) per hpf Urine Microscopic WBC (0-3) per hpf Ur Squamous Epith Cells (None-Few) per lpf Urine Bacteria (None-Few) per hpf Hyaline Casts (None-Few) per lpf Ur Culture Indicated? (NO) 04/05/18 04/05/18 Range/Units 08:30 09:18 WBC (4.3-11.1) K/mcL RBC (4.19-5.50) M/mcL Hgb (12.9-16.9) g/dL Hct (37.5-50.1) % MCV (83.0-100.0) fL MCH (28.0-33.3) pg MCHC (31.6-35.5) g/dL RDW (11.5-14.5) % Plt Count (140-400) K/mcL MPV (9.4-12.4) fL Immature Gran % (0-4) % Seg Neutrophils % % Lymphocytes % % Monocytes % % Eosinophils % % Basophils % % Neutrophils # (1.6-8.9) K/mcL Lymphocytes # (0.6-4.6) K/mcL Monocytes # (0.0-1.3) K/mcL Eosinophils # (0.0-0.6) K/mcL Basophils # (0.0-0.2) K/mcL Sample Site R Radial ABG pH 7.10 L* (7.32-7.45) pH Units ABG pCO2 13 L* (35-45) mmHg ABG pO2 118 H (85-104) mmHg ABG HCO3 4 L (21-27) mEq/L ABG Total CO2 < 5 L (20-26) mEq/L ABG O2 Saturation 97 (95-98) % ABG Base Excess -23 L (-2 to 3) mEq/L Santiago Test Positive O2 Delivery Device Room Air Sodium (136-145) mEq/L Potassium (3.5-5.1) mEq/L Chloride (98-107) mEq/L Carbon Dioxide (23-29) mEq/L BUN (6-20) mg/dL Creatinine (0.70-1.30) mg/dL Est GFR ( Amer) (> 60) Est GFR (Non-Af Amer) (> 60) BUN/Creatinine Ratio (6-26) Glucose (70-105) mg/dL Calculated Osmolality (280-300) Calcium (8.6-10.3) mg/dL Magnesium (1.6-2.6) mg/dL Total Bilirubin (0.3-1.0) mg/dL AST (13-39) Units/L ALT (7-52) Units/L Alkaline Phosphatase (34-104) Units/L Serum Total Protein (6.4-8.9) g/dL Albumin (3.5-5.7) g/dL Globulin (2.4-3.5) g/dL Albumin/Globulin Ratio (1.1-2.2) Beta-Hydroxybutyric Acd (0.02-0.27) mmol/L Urine Color Yellow (Yellow) Urine Clarity Clear (Clear) Urine pH 5.0 (5.0-8.0) pH Units Ur Specific [employer] 1.028 H (1.010-1.025) Urine Protein Trace (Neg-Trace) mg/dL Urine Glucose (UA) >=1000 H (Normal) mg/dL Urine Ketones >=160 H (Negative) mg/dL Urine Blood Trace H (Negative) Urine Nitrite Negative (Negative) Urine Bilirubin Negative (Negative) Urine Urobilinogen Normal (Normal) mg/dL Ur Leukocyte Esterase Negative (Negative) Urine Microscopic RBC 0-3 (0-3) per hpf Urine Microscopic WBC 0-3 (0-3) per hpf Ur Squamous Epith Cells None Seen (None-Few) per lpf Urine Bacteria None Seen (None-Few) per hpf Hyaline Casts None Seen (None-Few) per lpf Ur Culture Indicated? NO (NO) Critical Care Time Critical Care Time: Yes Total Critical Care Time: 31 Attestation: Excluding any separately billable procedures. Attestation Statement - Attestation Attestation: This documentation is done with the assistance of Dragon dictation. Despite efforts made to ensure accuracy, there may be inaccuracies in test engine operator or spelling and typographical errors. I have personally performed a face to face evaluation on this patient. I have reviewed and agree with the care plan. History and Exam by me shows: Patient was seen initially by Isabella Lizama the physician's reproductive healthcare assistant. Patient was just discharged from the hospital over the weekend with DKA and now he is probably back and that again. Said has not been out keep anything down denies abdominal pain. Elevated sugars here with a metabolic acidosis. Started on fluids and insulin drip and admission. Hospitalist is paged. Patient's agreement with plan.
[2018-04-05] MEDS ORDERED: Ondansetron 4 MG/2 ML VIAL IVP ONE (10:26)
[2018-04-05] MEDS: Insulin Human Regular 100 UNIT in 0.9 % Sodium Chloride 100 ML IVC SCH ×2 (10:37→23:02)
[2018-04-05] MEDS ORDERED: *HR* Dextrose 50 % in Water (Syg) 50 ML SYRINGE IVP PRN ×2 (11:20→11:58)
[2018-04-05] MEDS ORDERED: Insulin Regular, Human 100 UNIT/ML IV PRN ×2 (11:20→11:58)
[2018-04-05] MEDS ORDERED: D5% in 0.45% NACL 1,000 ML IVC PRN (11:58)
[2018-04-05 13:02] LABS: BUN/Creatinine Ratio 19 (6-26); Blood Urea Nitrogen 22 mg/dL (6-20); Carbon Dioxide 5 mEq/L (23-29); Chloride 106 mEq/L (98-107); Potassium 5.1 mEq/L (3.5-5.1); Sodium 135 mEq/L (136-145)
[2018-04-05 13:03] LABS: Calcium 8.6 mg/dL (8.6-10.3); Glucose 354 mg/dL (70-105); Osmolality,Calculated 298 (280-300); eGFR For Non-African Americans > 60 (> 60)
[2018-04-05] MEDS: 0.45 % Sodium Chloride w/KCl 20 MEQ/1,000 ML MLS IVC SCH ×3 (13:28→21:04)
[2018-04-05 15:47] LABS: ABG Base Excess -15 mEq/L (-2 to 3); ABG HCO3 10 mEq/L (21-27); ABG Oxygen Saturation 98 % (95-98); ABG PCO2 23 mmHg (35-45); ABG PH 7.25 pH Units (7.32-7.45); ABG PO2 112 mmHg (85-104); ABG TCO2 11 mEq/L (20-26)
[2018-04-05] MEDS: D5% in 0.45% NACL w KCl 20 MEQ/1,000 ML MLS IVC PRN ×2 (16:45→21:15)
--- NOTE | 2018-04-05 17:16 | Internal Med History&Physical ---
Date of Encounter: 04/05/18 Time of Encounter: 11:00 Internal Medicine - H&P: HPI Chief complaint: Nausea/vomiting and hyperglycemia Admitted From: Home Plans for Post Hospital Care: Home History of present illness: Patient is a 48-year-old male with past medical history significant for type 1 diabetes on insulin pump who was discharged on 04/04/18 who returns to the ER on 04/05/18 due to nausea and vomiting. Patient was just discharged on 04/04/18 after management for DKA and discharged home. Patient reports of checking his blood sugars later in the evening and was in the 300s and reported symptoms of becoming sick. Patient reports of only eating potato soup for dinner. Patient return to the ER for nausea and vomiting. In the ER, patient was found to have a blood glucose of 504 with an ABG pH of 7.1 and serum bicarbonate of 6 with anion gap of 26. Patient was readmitted to progressive unit for DKA management. Past Med Surg Social Fam HX - Past Medical History Medical history: diabetes, other Psychiatric history: no psych history - Past Surgical History Surgical History: other Additional surgical history: T&A, oral surgery - Social History Smoking Status: Never smoker Smokeless Tobacco Status: No Alcohol use: rarely Drug use: none - Family History Mother History Unknown: Yes Hx Family Autoimmune Disorders: Yes (RA) Father History Unknown: Yes Hx Family Endocrine Disorder: Yes Hx Family Autoimmune Disorders: Yes (Grave's disease) Internal Medicine - H&P: Meds Subcutaneous Insulin Pump [T:Slim] 1 each MC AD 04/03/18 [History] Allergy/AdvReac Type Severity Reaction Status Date / Time No Known Allergies Allergy Verified 04/05/18 07:56 All Systems PM: A 10-system review of systems was performed and is negative for pertinent findin gs except as documented above in the HPI. - Constitutional Vitals: Temp Pulse Resp BP Pulse Ox 98.0 F 104 18 128/81 100 04/05/18 16:00 04/05/18 14:30 04/05/18 14:30 04/05/18 14:30 04/05/18 14:30 General appearance: Present: A&O X 3, no acute distress Exam: As above - Eye Eye exam: Present: normal appearance - ENT ENT exam: Present: mucous membranes dry - Respiratory Respiratory exam: Present: CTAB. Absent: accessory muscle use, rales, rhonchi, wheezes - Cardiovascular Cardiovascular exam: Present: RRR, +S1, +S2. Absent: diastolic murmur, gallop, rubs, systolic murmur - GI/Abdominal GI/Abdominal exam: Present: normal bowel sounds, soft, no peritoneal signs. Absent: distended, tenderness - Extremities Exam Extremities exam: Absent: pedal edema - Neurological Exam Neurological exam: Present: oriented X3 - Psychiatric Psychiatric exam: Present: normal mood - Skin Skin exam: Present: normal color Internal Med - H&P Results - Labs CBC & Chem 7: 04/05/18 08:14 04/05/18 12:09 Labs: Short CBC 04/05/18 Range/Units 08:14 WBC 10.2 (4.3-11.1) K/mcL Hgb 14.9 (12.9-16.9) g/dL Hct 45.0 (37.5-50.1) % Plt Count 195 (140-400) K/mcL Neutrophils # 7.7 (1.6-8.9) K/mcL BMP 04/05/18 04/05/18 08:14 12:09 Sodium 131 L 135 L Potassium 5.2 H D 5.1 Chloride 99 106 Carbon Dioxide 6 L* 5 L* BUN 21 H 22 H Creatinine 1.20 1.14 Glucose 504 H* 354 H Calcium 9.7 8.6 Liver Function 04/05/18 Range/Units 08:14 Total Bilirubin 0.7 (0.3-1.0) mg/dL AST 19 (13-39) Units/L ALT 26 (7-52) Units/L Alkaline Phosphatase 74 (34-104) Units/L Albumin 4.8 (3.5-5.7) g/dL Urine 04/05/18 Range/Units 08:30 Urine Color Yellow (Yellow) Urine Clarity Clear (Clear) Urine pH 5.0 (5.0-8.0) pH Units Ur Specific Coleman 1.028 H (1.010-1.025) Urine Protein Trace (Neg-Trace) mg/dL Urine Glucose (UA) >=1000 H (Normal) mg/dL - ABG Interpretation ABG results: 04/05/18 04/05/18 09:18 15:44 ABG pH 7.10 L* 7.25 L ABG pCO2 13 L* 23 L ABG pO2 118 H 112 H ABG HCO3 4 L 10 L ABG Total CO2 < 5 L 11 L ABG O2 Saturation 97 98 ABG Base Excess -23 L -15 L - Assessment and plan (1) DKA (diabetic ketoacidoses) Current Visit: Yes Status: Acute Assessment and plan: Patient discharged on 04/04/18 for DKA and returns on 04/05/[address] patient back on DKA protocol with insulin drip and IV fluids addition to potassium replacements. Qualifiers: Diabetes mellitus type: type 1 Diabetes mellitus complication detail: without coma Qualified Code(s): E10.10 - Type 1 diabetes mellitus with ketoacidosis without coma (2) Diabetes Current Visit: Yes Status: Acute Assessment and plan: Hemoglobin A1c on 04/03/18 is 12.9 Qualifiers: Chronic kidney disease stage: unspecified stage Qualified Code(s): E08.22 - Diabetes mellitus due to underlying condition with diabetic chronic kidney disease; Z79.4 - snf (current) use of insulin (3) DVT prophylaxis Current Visit: No Status: Acute Assessment and plan: Subcutaneous heparin - Time Spent With Patient Total time spent is greater than 50% in coordination of care (as documented) at patient's floor/unit and/or counseling patient:
[2018-04-05 17:29] LABS: BUN/Creatinine Ratio 20 (6-26); Blood Urea Nitrogen 20 mg/dL (6-20); Calcium 8.6 mg/dL (8.6-10.3); Carbon Dioxide 11 mEq/L (23-29); Chloride 110 mEq/L (98-107); Glucose 152 mg/dL (70-105); Osmolality,Calculated 286 (280-300); Potassium 4.3 mEq/L (3.5-5.1); Sodium 135 mEq/L (136-145); eGFR For Non-African Americans > 60 (> 60)
[2018-04-05 20:58] LABS: VBG HCO3 17 mEq/L (21-27); VBG PCO2 39 mmHg (41-51); VBG PH 7.24 pH Units (7.32-7.42); VBG PO2 75 mmHg (25-50)
[2018-04-05 21:12] LABS: BUN/Creatinine Ratio 18 (6-26); Blood Urea Nitrogen 17 mg/dL (6-20); Calcium 8.6 mg/dL (8.6-10.3); Carbon Dioxide 16 mEq/L (23-29); Chloride 108 mEq/L (98-107); Glucose 165 mg/dL (70-105); Osmolality,Calculated 285 (280-300); Sodium 135 mEq/L (136-145); eGFR For Non-African Americans > 60 (> 60)
[2018-04-05] MEDS: *HR* Heparin 5,000 UNIT/ML VIAL SQ SCH (22:28)
[2018-04-06 00:45] LABS: VBG HCO3 17 mEq/L (21-27); VBG PCO2 31 mmHg (41-51); VBG PH 7.36 pH Units (7.32-7.42); VBG PO2 143 mmHg (25-50)
[2018-04-06 01:01] LABS: BUN/Creatinine Ratio 20 (6-26); Blood Urea Nitrogen 16 mg/dL (6-20); Calcium 8.2 mg/dL (8.6-10.3); Carbon Dioxide 16 mEq/L (23-29); Chloride 111 mEq/L (98-107); Glucose 133 mg/dL (70-105); Osmolality,Calculated 283 (280-300); Potassium 3.7 mEq/L (3.5-5.1); Sodium 135 mEq/L (136-145); eGFR For Non-African Americans > 60 (> 60)
[2018-04-06] MEDS: D5% in 0.45% NACL w KCl 20 MEQ/1,000 ML MLS IVC PRN ×2 (01:15→05:22)
[2018-04-06 04:58] LABS: Basophils % 0.3 %; Eosinophils # 0.1 K/mcL (0.0-0.6); Eosinophils % 0.8 %; Hematocrit 33.1 % (37.5-50.1); Immature Granulocytes % 0.3 % (0-4); Lymphocytes # 1.8 K/mcL (0.6-4.6); Lymphocytes % 29.7 %; Mean Corpuscular HGB Conc 36.3 g/dL (31.6-35.5); Mean Corpuscular Hemoglobin 30.2 pg (28.0-33.3); Mean Corpuscular Volume 83.4 fL (83.0-100.0); Mean Platelet Volume 9.3 fL (9.4-12.4); Monocytes # 0.4 K/mcL (0.0-1.3); Monocytes % 6.5 %; Neutrophils # 3.7 K/mcL (1.6-8.9); Platelet Count 132 K/mcL (140-400); Red Blood Count 3.97 M/mcL (4.19-5.50); Red Cell Distribution Width 12.6 % (11.5-14.5); Segmented Neutrophils % 62.4 %
[2018-04-06 05:06] LABS: VBG HCO3 18 mEq/L (21-27); VBG PCO2 33 mmHg (41-51); VBG PH 7.36 pH Units (7.32-7.42); VBG PO2 146 mmHg (25-50)
[2018-04-06] MEDS: *HR* Heparin 5,000 UNIT/ML VIAL SQ SCH ×3 (05:33→20:19)
[2018-04-06 05:36] LABS: BUN/Creatinine Ratio 19 (6-26); Blood Urea Nitrogen 15 mg/dL (6-20); Calcium 8.2 mg/dL (8.6-10.3); Carbon Dioxide 18 mEq/L (23-29); Chloride 111 mEq/L (98-107); Glucose 187 mg/dL (70-105); Osmolality,Calculated 284 (280-300); Potassium 3.7 mEq/L (3.5-5.1); Sodium 134 mEq/L (136-145); eGFR For Non-African Americans > 60 (> 60)
[2018-04-06 09:20] LABS: VBG HCO3 19 mEq/L (21-27); VBG PCO2 37 mmHg (41-51); VBG PH 7.33 pH Units (7.32-7.42); VBG PO2 121 mmHg (25-50)
[2018-04-06 09:40] LABS: BUN/Creatinine Ratio 19 (6-26); Blood Urea Nitrogen 14 mg/dL (6-20); Calcium 8.2 mg/dL (8.6-10.3); Carbon Dioxide 19 mEq/L (23-29); Chloride 108 mEq/L (98-107); Glucose 191 mg/dL (70-105); Osmolality,Calculated 284 (280-300); Potassium 3.5 mEq/L (3.5-5.1); Sodium 134 mEq/L (136-145); eGFR For Non-African Americans > 60 (> 60)
--- NOTE | 2018-04-06 09:44 | Internal Med Progress Note ---
Hospitalist Progress Note - Encounter Date of Encounter: 04/06/18 Time of Encounter: 09:42 - Subjective Interval History: 48 M admitted and being managed for DKA He reports his pump "was acting up last week", but its supposed to detect if its not delivering insulin. This is his 2nd episode of DKA in 2 months He denies any new complains He feels queasy because his abdomen is empty Gap is yet to close from last labs - Exam Vitals: Temp Pulse Resp BP Pulse Ox 97.8 F 76 18 111/72 98 04/06/18 06:56 04/06/18 08:09 04/06/18 06:56 04/06/18 06:56 04/06/18 06:56 Exam: Gen - Awake, alert, oriented x 3, no acute distress HEENT - NCAT, PERRLA, EOMI, hearing grossly intact, oropharynx benign Heart -S1, S2, RRR, no m/g/r Resp - CTAB, no added sounds GI - Soft, scaphoid, not tender, no palpably enlarged organs, BS present in al quadrants Back: NO CVA tenderness Skin - Warm, dry, no rashes/lesions/ulcers Psych -Appropriate affect Extremities: Normal inspection, no pedal edema - Assessment and Plan (1) DKA (diabetic ketoacidoses) Current Visit: Yes Status: Acute Assessment and Plan: Patient discharged on 04/04/18 for DKA and returns on 04/05/18 for DKA Suspect patient's insulin pump is not functional Bridge with SQ insulin MOnitor FS ACHS Continue to monitor Chem (2) DVT prophylaxis Current Visit: Yes Status: Acute Assessment and Plan: Subcutaneous heparin (3) Diabetes Current Visit: Yes Status: Chronic Assessment and Plan: Hemoglobin A1c on 04/03/18 is 12.9 Mgt as in DKA 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 Follow up as outpatient - Time Spent with Patient Total time spent is greater than 50% in coordination of care (as documented) at patient's floor/unit and/or counseling patient: Internal Medicine: Result - Labs CBC & Chem 7: 04/06/18 04:49 04/06/18 08:46 Labs: Short CBC 04/06/18 Range/Units 04:49 WBC 6.0 (4.3-11.1) K/mcL Hgb 12.0 L D (12.9-16.9) g/dL Hct 33.1 L (37.5-50.1) % Plt Count 132 L (140-400) K/mcL Neutrophils # 3.7 (1.6-8.9) K/mcL BMP 04/05/18 04/05/18 04/05/18 12:09 16:05 19:57 Sodium 135 L 135 L 135 L Potassium 5.1 4.3 4.0 Chloride 106 110 H 108 H Carbon Dioxide 5 L* 11 L 16 L BUN 22 H 20 17 Creatinine 1.14 1.01 0.93 Glucose 354 H 152 H 165 H Calcium 8.6 8.6 8.6 04/06/18 04/06/18 04/06/18 00:30 04:49 08:46 Sodium 135 L 134 L 134 L Potassium 3.7 3.7 3.5 Chloride 111 H 111 H 108 H Carbon Dioxide 16 L 18 L 19 L BUN 16 15 14 Creatinine 0.82 0.81 0.75 Glucose 133 H 187 H 191 H Calcium 8.2 L 8.2 L 8.2 L - ABG Interpretation ABG results: ABG ABG pH 7.25 pH Units (7.32-7.45) L 04/05/18 15:44 ABG pCO2 23 mmHg (35-45) L 04/05/18 15:44 ABG pO2 112 mmHg (85-104) H 04/05/18 15:44 ABG O2 Saturation 98 % (95-98) 04/05/18 15:44 Consult Discharge Plan - Plan Referrals: Jenaro Doherty MD [Partnered Physician] - 04/12/18 2:15 pm Bebe Lemus MD [Non-Partnered Physician] - 04/21/18 11:40 am (1) DKA (diabetic ketoacidoses) Qualifiers: Diabetes mellitus type: type 1 Diabetes mellitus complication detail: without coma Qualified Code(s): E10.10 - Type 1 diabetes mellitus with ketoacidosis without coma (3) Diabetes Qualifiers: Chronic kidney disease stage: unspecified stage
[2018-04-06] MEDS ORDERED: D5% in Water 1,000 ML IVC PRN (09:54)
[2018-04-06] MEDS ORDERED: Dextrose Gel 15 GM/37.5 ML TUBE PO PRN ×2 (09:54)
[2018-04-06] MEDS ORDERED: *HR* Dextrose 50 % in Water (Syg) 50 ML SYRINGE IVP PRN (09:54)
[2018-04-06] MEDS: Insulin DETEMIR 100 UNIT/ML X5UNITS SQ SCH ×2 (11:09→20:22)
[2018-04-06] MEDS ORDERED: Insulin LISPRO 300 UNITS/3 ML VIAL SQ SCH ×3 (11:30→21:00)
[2018-04-06] MEDS: Insulin LISPRO 300 UNITS/3 ML VIAL SQ SCH (17:15)
[2018-04-07 03:54] LABS: Basophils % 0.4 %; Eosinophils # 0.1 K/mcL (0.0-0.6); Eosinophils % 2.3 %; Hematocrit 36.3 % (37.5-50.1); Hemoglobin 12.8 g/dL (12.9-16.9); Lymphocytes # 2.3 K/mcL (0.6-4.6); Lymphocytes % 48.4 %; Mean Corpuscular HGB Conc 35.3 g/dL (31.6-35.5); Mean Corpuscular Hemoglobin 29.8 pg (28.0-33.3); Mean Corpuscular Volume 84.4 fL (83.0-100.0); Mean Platelet Volume 9.5 fL (9.4-12.4); Monocytes # 0.3 K/mcL (0.0-1.3); Monocytes % 6.9 %; Platelet Count 131 K/mcL (140-400); Red Cell Distribution Width 12.2 % (11.5-14.5)
[2018-04-07 04:14] LABS: BUN/Creatinine Ratio 18 (6-26); Blood Urea Nitrogen 12 mg/dL (6-20); Calcium 8.9 mg/dL (8.6-10.3); Carbon Dioxide 27 mEq/L (23-29); Chloride 103 mEq/L (98-107); Glucose 89 mg/dL (70-105); Magnesium 1.7 mg/dL (1.6-2.6); Osmolality,Calculated 279 (280-300); Potassium 3.2 mEq/L (3.5-5.1); Sodium 135 mEq/L (136-145); eGFR For Non-African Americans > 60 (> 60)
[2018-04-07] MEDS: *HR* Heparin 5,000 UNIT/ML VIAL SQ SCH (05:17)
[2018-04-07 07:27] VITALS: BP 110/75
[2018-04-07] MEDS: Insulin LISPRO 300 UNITS/3 ML VIAL SQ SCH (07:36)
[2018-04-07] MEDS: Insulin DETEMIR 100 UNIT/ML X5UNITS SQ SCH (09:12)
--- NOTE | 2018-04-07 09:32 | Discharge Summary ---
- NOTES TO OUTPATIENT PROVIDER Notes to Outpatient Provider: Patient re-admitted for DKA. Second episode in one week. There was no evidence of infection, no [place]. Trigger is darnellley due to a malfunction of his insulin pump. His insulin pump is likely not functioning, he was educated exyensively daily on the implications of not having insulin . He is discharged on SQ insulin-levemir and lispro till he can have his insulin pump evaluated by his stick puller and supplier. he is also discharged with supplies-lancets/alcohol pads/test strips/insulin needles. Follow up with PCP Date of Encounter: 04/07/18 Time of Encounter: 09:30 - Discharge Diagnosis (1) DKA (diabetic ketoacidoses) Priority: Primary Status: Resolved Assessment and Plan: Patient discharged on 04/04/18 for DKA and returns on 04/05/18 for DKA Suspect patient's insulin pump is not functional FS improved on SQ insulin-levemir and lispro Labs back to baseline His vitals have been stable and he has been clinically stable Hypokalemia replaced No evidence of infection or [place] DKA likely due to pump malfunction Patient educated extensively on need for prompt evaluation, as well as need to be on subcutaneous insulin until his insulin pump and evaluated by his stick puller. The patient is reluctant to take subcutaneous insulin despite multiple education about the diagnosis of DKA and his dependence on insulin. 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 Michel is a 48 year old male with insulin dependent DM Patient discharged on 04/04/18 for DKA and returns on 04/05/18 for DKA Suspect patient's insulin pump is not functional FS improved on SQ insulin-levemir and lispro Labs back to baseline His vitals have been stable and he has been clinically stable Hypokalemia replaced No evidence of infection or [place] DKA likely due to pump malfunction Patient educated extensively on need for prompt evaluation, as well as need to be on subcutaneous insulin until his insulin pump and evaluated by his stick puller. The patient is reluctant to take subcutaneous insulin despite multiple education about the diagnosis of DKA and his dependence on insulin. He is discharged with SQ levemir and lispro and insulin supplies and verbalized understanding of plan of care Discharge discussed with: patient, nurse, social work - Time Spent with Patient Total time spent providing and/or coordinating discharge services: Greater than 30 minutes (35 mins spent on patient face to face, documentation, med rec, prescription and patient education) - Discharge Medications Prescriptions: Alcohol Antiseptic Pads [Alcohol Pads] 1 each TP QID #120 med..pad Blood Sugar Diagnostic [Blood Glucose Test Strip] 1 each QID #120 strip Insulin DETEMIR [Levemir] 15 unit SQ HS #2 vial Insulin LISPRO [HumaLOG] 8 units SQ TIDWM #2 vial Lancets/Blood Glucose Strips [Fora [id number] Strp-Lnct] 1 each QID #120 combo..pkg Syrge-Ndl,Ins 0.3 ml Half Barney [Insulin Syringe] 1 each QID #120 disp.syrin Home Medications: Alcohol Antiseptic Pads [Alcohol Pads] 1 each TP QID #120 med..pad 04/07/18 [Rx] Blood Sugar Diagnostic [Blood Glucose Test Strip] 1 each QID #120 strip 04/07/18 [Rx] Insulin DETEMIR [Levemir] 15 unit SQ HS #2 vial 04/07/18 [Rx] Insulin LISPRO [HumaLOG] 8 units SQ TIDWM #2 vial 04/07/18 [Rx] Lancets/Blood Glucose Strips [Fora [id number] Strp-Lnct] 1 each QID #120 combo..pkg 04/07/18 [Rx] Syrge-Ndl,Ins 0.3 ml Half Barney [Insulin Syringe] 1 each QID #120 disp.lanny 04/07/18 [Rx] Allergies/Adverse Reactions: Allergy/AdvReac Type Severity Reaction Status Date / Time No Known Allergies Allergy Verified 04/05/18 07:56 Date of admission: 04/06/18 09:40 Primary care physician: PCP NONE Consults: 04/05/18 11:20 Consult for Pharmacy Education [CONS] Routine Reason for Consult: Remission less than 24 hours for DKA Call Completed: No Consult to Endocrinology [CONS] Routine Consulting Provider: [facility] Reason for Consult: Readmission less than 24 hours for DKA with insulin pump Call Completed: No Discharging clinician: Daniel Hubbard Anticipated date of discharge: 04/07/18 - Constitutional Vitals: Temp Pulse Resp BP Pulse Ox 97.6 F 101 18 110/75 100 04/07/18 07:23 04/07/18 07:30 04/07/18 07:23 04/07/18 07:23 04/07/18 07:23 General appearance: Present: cachectic, A&O X 3, no acute distress Exam: see below - Head Head exam: Present: atraumatic, normocephalic - Eye Eye exam: Present: PERRL, conjuntiva pink, sclera anicteric Pupils: Present: PERRL - Neck Neck exam general surgery: Present: supple, trachea midline. Absent: lymphadenopathy - Respiratory Respiratory exam: Present: CTAB. Absent: accessory muscle use, rales, rhonchi, wheezes - Cardiovascular Cardiovascular exam: Present: RRR, +S1, +S2. Absent: diastolic murmur, gallop, rubs, systolic murmur - GI/Abdominal GI/Abdominal exam: Present: normal bowel sounds, soft, no peritoneal signs. Absent: distended, tenderness - Extremities Exam Extremities exam: Present: warm, radial pulses palpable and symmetrical. Absent: calf tenderness, cyanotic, pedal edema - Neurological Exam Neurological exam: Present: CN II-XII intact, oriented X3, no focal deficits. Absent: pronater drift, facial droop, speech deficit - Skin Skin exam: Present: dry, intact - Patient Status Disposition: Home, Self-Care Condition: Good Functional capacity at discharge: independent ambulation Overall status at discharge: patient is back to baseline - Discharge Instructions Instructions: Diabetes Mellitus Type 2 in Adults (DC) Follow Up With: Jenaro Doherty MD [Partnered Physician] - 04/12/18 2:15 pm Bebe Lemus MD [Non-Partnered Physician] - 04/21/18 11:40 am - Diet and Activity Activity: resume usual activities as tolerated Diet: diabetic diet
== END 2018-04-07 11:28 | disposition home or self-care (01) | DRG 813 ==
LOC: EMEROOARM 07:49 → INTOOBSV 10:12 → SUATTDRO 10:12 → ICNU 10:12 → 2NNU 19:15
PROVIDERS: ADMIT Hospitalist; ATTEND Internal Medicine

== ENCOUNTER 2018-04-09 17:26 | Inpatient (IN) ==
[2018-04-09] MEDS ORDERED: *HR* Dextrose 50 % in Water (Syg) 50 ML SYRINGE IVP PRN ×3 (18:05→20:23)
--- NOTE | 2018-04-09 18:20 | Emergency Department Note ---
Disposition Clinical Impression: Diabetic keto-acidosis Qualifiers: Diabetes mellitus type: type 1 Diabetes mellitus complication detail: without coma Qualified Code(s): E10.10 - Type 1 diabetes mellitus with ketoacidosis without coma Disposition: Admitted As Inpatient Condition: Serious General Adult HPI - General Chief complaint: ED Nausea/Vomiting/Diarrhea Stated complaint: DKA/[place]/vision changes Time Seen by Provider: 04/09/18 17:47 - History of Present Illness HPI Narrative: Patient is a 48 year old male with PMH of diabetes type one who presents with 1 day of fatigue, nausea, vomiting. Patient reports that his [employer] insulin pump has been malfunctioning for the past week and they will be sending him a new one. Patient was admitted earlier this week 04/05 for similar symptoms and discharged with subcutaneous insulin however he did not start using the subcutaneous insulin until this morning because he decided to use an old insulin pump which he believed to be functioning. Patient reports that last night he started feeling generalized malaise and "like I was going into DKA" at which point his blood sugar measured in the 500s. Patient usually runs in the 200s. Today the patient continued to feel generalized malaise with nausea and nonblo arin vomiting with sugars continuing to measure in the 400s despite giving himself approximately 8units of insulin. Patient denies chest pain, SOB, fever, chiils, abdominal pain, diarrhea, blood in stool, urinary symptoms. Pain Scale: 0 - Related Data Previous Rx's Medication Instructions Recorded RX: Insulin LISPRO [HumaLOG] 8 units SQ TIDWM #2 vial 04/07/18 Allergies Allergy/AdvReac Type Severity Reaction Status Date / Time No Known Allergies Allergy Verified 04/09/18 17:43 Constitutional: Reports: weakness (generalized weakness). Denies: fever, chills Eyes: Denies: eye pain, vision change ENT ED: Denies: throat pain, congestion Cardiovascular: Denies: chest pain, palpitations, syncope Respiratory: Denies: cough, dyspnea Gastrointestinal: Reports: nausea, vomiting. Denies: abdominal pain, diarrhea, melena Genitourinary: Denies: dysuria, hematuria Musculoskeletal: Denies: back pain, neck pain Integumentary: Denies: rash Neurological: Denies: headache, weakness, numbness Past Medical History - Past Medical History Medical history: Reports: diabetes, other Surgical history: Reports: other Psychiatric history: Reports: no psych history - Social History Smoking Status: Never smoker Smokeless Tobacco Status: No Alcohol use: Reports: rarely Drug use: Reports: none Physical Exam - General General appearance: alert, other (in mild distress, cachectic appearing) - Head Head exam: atraumatic, normocephalic, normal inspection - Eye Eye exam: Present: normal appearance, PERRL, EOMI - ENT ENT exam: normal exam, normal oropharynx, mucous membranes dry - Neck Neck exam: Present: normal inspection, full ROM, trachea midline - Chest Chest inspection: Present: normal inspection, symmetric chest wall rise - Respiratory Respiratory exam: Present: normal lung sounds bilaterally - Cardiovascular Cardiovascular exam: Present: regular rate, normal rhythm, normal heart sounds - Abdominal Exam Abdominal exam: Present: soft, Non-Tender. Absent: tenderness, distention, guarding, rebound, rigidity - Extremities Exam Extremities exam: Present: normal inspection, full ROM, normal capillary refill. Absent: tenderness, pedal edema - Back Exam Back exam: Present: normal inspection, full ROM. Absent: tenderness, CVA tenderness (R), CVA tenderness (L) - Neurological Exam Neurological exam: Present: alert, oriented X3 - Skin Skin exam: Present: warm, dry, intact, normal color Course Vital Signs Temperature 97.6 F 04/09/18 17:44 Pulse Rate 88 04/09/18 17:44 Respiratory Rate 20 04/09/18 17:44 Blood Pressure 94/63 04/09/18 17:44 O2 Sat by Pulse Oximetry 100 04/09/18 17:44 Temperature 97.6 F 04/09/18 17:44 Pulse Rate 88 04/09/18 17:44 Respiratory Rate 20 04/09/18 17:44 Blood Pressure 94/63 04/09/18 17:44 O2 Sat by Pulse Oximetry 100 04/09/18 17:44 Oxygen Delivery Oxygen Delivery Room Air Medical Decision Making - Lab Data Result diagrams: 04/10/18 05:03 04/10/18 08:56
--- NOTE | 2018-04-09 18:25 | Emergency Department Note ---
Disposition Clinical Impression: Diabetic keto-acidosis Qualifiers: Diabetes mellitus type: type 1 Diabetes mellitus complication detail: without coma Qualified Code(s): E10.10 - Type 1 diabetes mellitus with ketoacidosis without coma Disposition: Admitted As Inpatient Condition: Serious Referrals: Jenaro Doherty MD [Primary Care Provider] - Forms: ED Satisfaction Letter, Work/School Release Time of Disposition: 19:25 General Adult HPI - General Chief complaint: ED Nausea/Vomiting/Diarrhea Stated complaint: DKA/NV/vision changes Time Seen by Provider: 04/09/18 17:47 - History of Present Illness Pain Scale: 0 - Related Data Previous Rx's Medication Instructions Recorded Alcohol Antiseptic Pads [Alcohol 1 each TP QID #120 med..pad 04/07/18 Pads] Blood Sugar Diagnostic [Blood 1 each MC QID #120 strip 04/07/18 Glucose Test Strip] Insulin DETEMIR [Levemir] 15 unit SQ HS #2 vial 04/07/18 Insulin LISPRO [HumaLOG] 8 units SQ TIDWM #2 vial 04/07/18 Lancets/Blood Glucose Strips [Fora 1 each MC QID #120 combo..pkg 04/07/18 [id number] Strp-Lnct] Syrge-Ndl,Ins 0.3 ml Half Barney 1 each MC QID #120 disp.syrin 04/07/18 [Insulin Syringe] Allergies Allergy/AdvReac Type Severity Reaction Status Date / Time No Known Allergies Allergy Verified 04/09/18 17:43 Constitutional: Reports: weakness (generalized weakness). Denies: fever, chills Eyes: Denies: eye pain, vision change ENT ED: Denies: throat pain, congestion Cardiovascular: Denies: chest pain, palpitations, syncope Respiratory: Denies: cough, dyspnea Gastrointestinal: Reports: nausea, vomiting. Denies: abdominal pain, diarrhea, melena Genitourinary: Denies: dysuria, hematuria Musculoskeletal: Denies: back pain, neck pain Integumentary: Denies: rash Neurological: Denies: headache, weakness, numbness Past Medical History - Past Medical History Medical history: Reports: diabetes, other Surgical history: Reports: other Psychiatric history: Reports: no psych history - Social History Smoking Status: Never smoker Smokeless Tobacco Status: No Alcohol use: Reports: rarely Drug use: Reports: none Physical Exam - General General appearance: alert, other (in mild distress, cachectic appearing) Course Vital Signs Temperature 97.6 F 04/09/18 17:44 Pulse Rate 88 04/09/18 17:44 Respiratory Rate 20 04/09/18 17:44 Blood Pressure 94/63 04/09/18 17:44 O2 Sat by Pulse Oximetry 100 04/09/18 17:44 Temperature 97.6 F 04/09/18 18:22 Pulse Rate 99 04/09/18 18:22 Respiratory Rate 20 04/09/18 18:22 Blood Pressure 125/76 04/09/18 18:22 O2 Sat by Pulse Oximetry 100 04/09/18 18:22 Oxygen Delivery Oxygen Delivery Room Air Medical Decision Making - Lab Data Result diagrams: 04/09/18 18:05 Lab Results 04/09/18 04/09/18 04/09/18 Range/Units 18:05 18:22 18:24 VBG pH (7.32-7.42) pH Units VBG pCO2 (41-51) mmHg VBG pO2 (25-50) mmHg VBG HCO3 (21-27) mEq/L Sodium 130 L (136-145) mEq/L Potassium 5.9 H (3.5-5.1) mEq/L Chloride 93 L (98-107) mEq/L Carbon Dioxide 6 L* (23-29) mEq/L BUN 25 H (6-20) mg/dL Creatinine 1.36 H (0.70-1.30) mg/dL Est GFR ( Amer) > 60 (> 60) Est GFR (Non-Af Amer) 56 L (> 60) BUN/Creatinine Ratio 18 (6-26) Glucose 553 H* (70-105) mg/dL POC Glucose 406 H* (70-99) mg/dL Calculated Osmolality 300 (280-300) Lactic Acid (0.5-2.2) mmol/L Calcium 10.0 (8.6-10.3) mg/dL Phosphorus 7.0 H (2.7-4.5) mg/dL Magnesium 2.6 (1.6-2.6) mg/dL Beta-Hydroxybutyric Acd (0.02-0.27) mmol/L Urine Color Yellow (Yellow) Urine Clarity Clear (Clear) Urine pH 5.0 (5.0-8.0) pH Units Ur Specific [place] 1.023 (1.010-1.025) Urine Protein 30 H (Neg-Trace) mg/dL Urine Glucose (UA) >=1000 H (Normal) mg/dL Urine Ketones 80 H (Negative) mg/dL Urine Blood Trace H (Negative) Urine Nitrite Negative (Negative) Urine Bilirubin Negative (Negative) Urine Urobilinogen Normal (Normal) mg/dL Ur Leukocyte Esterase Negative (Negative) Urine Microscopic RBC 0-3 (0-3) per hpf Urine Microscopic WBC 0-3 (0-3) per hpf Ur Squamous Epith Cells None Seen (None-Few) per lpf Urine Bacteria None Seen (None-Few) per hpf Hyaline Casts None Seen (None-Few) per lpf Ur Culture Indicated? NO (NO) Urine Opiates Screen (Hyesgh=192) ng/mL Ur Barbiturates Screen (Ufkxtu=931) ng/mL Ur Phencyclidine Scrn (Cutoff=25) ng/mL Ur Amphetamines Screen (Awbdzk=1958) ng/mL U Benzodiazepines Scrn (Znawhm=111) ng/mL Urine Cocaine Screen (Cutoff= 300) ng/mL U Marijuana (THC) Screen (Cutoff = 50) ng/mL Ur Drug Screen Interp Specimen Rejected Person Notif of Crit 04/09/18 04/09/18 04/09/18 Range/Units 18:25 18:25 18:30 VBG pH (7.32-7.42) pH Units VBG pCO2 (41-51) mmHg VBG pO2 (25-50) mmHg VBG HCO3 (21-27) mEq/L Sodium (136-145) mEq/L Potassium (3.5-5.1) mEq/L Chloride (98-107) mEq/L Carbon Dioxide (23-29) mEq/L BUN (6-20) mg/dL Creatinine (0.70-1.30) mg/dL Est GFR ( Amer) (> 60) Est GFR (Non-Af Amer) (> 60) BUN/Creatinine Ratio (6-26) Glucose (70-105) mg/dL POC Glucose 440 H* (70-99) mg/dL Calculated Osmolality (280-300) Lactic Acid (0.5-2.2) mmol/L Calcium (8.6-10.3) mg/dL Phosphorus (2.7-4.5) mg/dL Magnesium (1.6-2.6) mg/dL Beta-Hydroxybutyric Acd > 2.00 H (0.02-0.27) mmol/L Urine Color (Yellow) Urine Clarity (Clear) Urine pH (5.0-8.0) pH Units Ur Specific [place] (1.010-1.025) Urine Protein (Neg-Trace) mg/dL Urine Glucose (UA) (Normal) mg/dL Urine Ketones (Negative) mg/dL Urine Blood (Negative) Urine Nitrite (Negative) Urine Bilirubin (Negative) Urine Urobilinogen (Normal) mg/dL Ur Leukocyte Esterase (Negative) Urine Microscopic RBC (0-3) per hpf Urine Microscopic WBC (0-3) per hpf Ur Squamous Epith Cells (None-Few) per lpf Urine Bacteria (None-Few) per hpf Hyaline Casts (None-Few) per lpf Ur Culture Indicated? (NO) Urine Opiates Screen Negative (Wvvhuh=321) ng/mL Ur Barbiturates Screen Negative (Otmlfm=933) ng/mL Ur Phencyclidine Scrn Negative (Cutoff=25) ng/mL Ur Amphetamines Screen Negative (Zvzvof=9724) ng/mL U Benzodiazepines Scrn Negative (Rluyms=126) ng/mL Urine Cocaine Screen Negative (Cutoff= 300) ng/mL U Marijuana (THC) Screen Negative (Cutoff = 50) ng/mL Ur Drug Screen Interp See Below Specimen Rejected Person Notif of Crit 04/09/18 04/09/18 04/09/18 Range/Units 18:30 18:30 18:44 VBG pH 7.02 L* (7.32-7.42) pH Units VBG pCO2 27 L (41-51) mmHg VBG pO2 51 H (25-50) mmHg VBG HCO3 7 L (21-27) mEq/L Sodium (136-145) mEq/L Potassium (3.5-5.1) mEq/L Chloride (98-107) mEq/L Carbon Dioxide (23-29) mEq/L BUN (6-20) mg/dL Creatinine (0.70-1.30) mg/dL Est GFR ( Amer) (> 60) Est GFR (Non-Af Amer) (> 60) BUN/Creatinine Ratio (6-26) Glucose (70-105) mg/dL POC Glucose (70-99) mg/dL Calculated Osmolality (280-300) Lactic Acid 3.9 H (0.5-2.2) mmol/L Calcium (8.6-10.3) mg/dL Phosphorus (2.7-4.5) mg/dL Magnesium (1.6-2.6) mg/dL Beta-Hydroxybutyric Acd (0.02-0.27) mmol/L Urine Color (Yellow) Urine Clarity (Clear) Urine pH (5.0-8.0) pH Units Ur Specific [place] (1.010-1.025) Urine Protein (Neg-Trace) mg/dL Urine Glucose (UA) (Normal) mg/dL Urine Ketones (Negative) mg/dL Urine Blood (Negative) Urine Nitrite (Negative) Urine Bilirubin (Negative) Urine Urobilinogen (Normal) mg/dL Ur Leukocyte Esterase (Negative) Urine Microscopic RBC (0-3) per hpf Urine Microscopic WBC (0-3) per hpf Ur Squamous Epith Cells (None-Few) per lpf Urine Bacteria (None-Few) per hpf Hyaline Casts (None-Few) per lpf Ur Culture Indicated? (NO) Urine Opiates Screen (Lznkbj=151) ng/mL Ur Barbiturates Screen (Yulknw=302) ng/mL Ur Phencyclidine Scrn (Cutoff=25) ng/mL Ur Amphetamines Screen (Mbfbcg=7693) ng/mL U Benzodiazepines Scrn (Zvnizf=169) ng/mL Urine Cocaine Screen (Cutoff= 300) ng/mL U Marijuana (THC) Screen (Cutoff = 50) ng/mL Ur Drug Screen Interp Specimen Rejected Miscellaneous Person Notif of Joss SYKES Critical Care Time Critical Care Time: Yes Total Critical Care Time: 40 Attestation: Critical care performed: Time is exclusive of separately billable procedures. Time includes: direct patient care, patient reassessment, coordination of patient care, interpretation of data (laboratory data, radiology data, and respiratory data), review of patient's medical records, medical consultation and documentation of patient care. Procedures included in critical care time: Procedures excluded from critical care time: Attestation Statement - Attestation Attestation: I examined this patient and my medical decision-making was reviewed with the Resident Physician. I agree with the documented findings, disposition and treatment plan as described except to the extent set forth below. Patient presents to the emergency department with a chief complaint of "I am in DKA." Patient has been having trouble with his insulin pump. He has had 2 admissions this week already. He was discharged home 2 days ago with subcutaneous insulin. Patient states he chose instead he is not on insulin pump which also was not working. He states he has called [employer] and that the pumps are not dispensing. On examination he is awake alert. Tachypneic. Dry mucous membranes. Abdomen soft lungs clear. Plan DKA workup. IV hydration and reevaluate. Patient is in DKA. Bicarbonate is 6. PH is 7. Starting insulin drip. Admitted to medicine.
[2018-04-09 18:36] LABS: Bilirubin,Urine Negative (Negative); Blood,Urine Trace (Negative); Clarity,Urine Clear (Clear); Color,Urine Yellow (Yellow); Glucose,Urine (UA) >=1000 mg/dL (Normal); Ketones,Urine 80 mg/dL (Negative); Leukocyte Esterase,Urine Negative (Negative); Nitrite,Urine Negative (Negative); Protein,Urine 30 mg/dL (Neg-Trace); Specific Gravity,Urine 1.023 (1.010-1.025); Urobilinogen,Urine Normal (Normal)
[2018-04-09 18:39] LABS: Bacteria,Urine None Seen per hpf (None-Few); Hyaline Casts,Urine None Seen per lpf (None-Few); RBC,Urine 0-3 per hpf (0-3); Squamous Epithelial Cell,Urine None Seen per lpf (None-Few); WBC,Urine 0-3 per hpf (0-3)
[2018-04-09 18:46] LABS: Amphetamine Screen,Urine Negative ng/mL (Cutoff=1000); Barbiturate Screen,Urine Negative ng/mL (Cutoff=200); Benzodiazepines Screen,Urine Negative ng/mL (Cutoff=200); Cannabinoid Screen,Urine Negative ng/mL (Cutoff = 50); Cocaine Screen,Urine Negative ng/mL (Cutoff= 300); Opiate Screen,Urine Negative ng/mL (Cutoff=300); Phencyclidine Screen,Urine Negative ng/mL (Cutoff=25)
[2018-04-09 18:54] LABS: VBG HCO3 7 mEq/L (21-27); VBG PCO2 27 mmHg (41-51); VBG PH 7.02 pH Units (7.32-7.42); VBG PO2 51 mmHg (25-50)
[2018-04-09] MEDS: 0.9 % Sodium Chloride 1,000 ML IVC SCH ×2 (19:00→19:56)
[2018-04-09 19:14] LABS: BUN/Creatinine Ratio 18 (6-26); Blood Urea Nitrogen 25 mg/dL (6-20); Carbon Dioxide 6 mEq/L (23-29); Chloride 93 mEq/L (98-107); Glucose 553 mg/dL (70-105); Magnesium 2.6 mg/dL (1.6-2.6); Osmolality,Calculated 300 (280-300); Potassium 5.9 mEq/L (3.5-5.1); Sodium 130 mEq/L (136-145); eGFR For Non-African Americans 56 (> 60)
[2018-04-09] MEDS ORDERED: Insulin Regular, Human 100 UNIT/ML IV PRN ×2 (19:17→20:23)
--- NOTE | 2018-04-09 19:24 | Emergency Department Note ---
Disposition Clinical Impression: Diabetic keto-acidosis Qualifiers: Diabetes mellitus type: type 1 Diabetes mellitus complication detail: without coma Qualified Code(s): E10.10 - Type 1 diabetes mellitus with ketoacidosis without coma Disposition: Admitted As Inpatient Condition: Serious Time of Disposition: 19:27 Abdominal Pain HPI - General Chief Complaint: ED Nausea/Vomiting/Diarrhea Stated Complaint: DKA/NV/vision changes Time Seen by Provider: 04/09/18 17:47 Source: patient, family Mode of arrival: ambulatory Limitations: no limitations Nursing Notes Reviewed: Yes Vital Signs Reviewed: Yes - History of Present Illness Pain Scale: 0 - Related Data Previous Rx's Medication Instructions Recorded Alcohol Antiseptic Pads [Alcohol 1 each TP QID #120 med..pad 04/07/18 Pads] Blood Sugar Diagnostic [Blood 1 each MC QID #120 strip 04/07/18 Glucose Test Strip] Insulin DETEMIR [Levemir] 15 unit SQ HS #2 vial 04/07/18 Insulin LISPRO [HumaLOG] 8 units SQ TIDWM #2 vial 04/07/18 Lancets/Blood Glucose Strips [Fora 1 each QID #120 combo..pkg 04/07/18 [id number] Strp-Lnct] Syrge-Ndl,Ins 0.3 ml [place] 1 each QID #120 disp.syrin 04/07/18 [Insulin Syringe] Allergies Allergy/AdvReac Type Severity Reaction Status Date / Time No Known Allergies Allergy Verified 04/09/18 17:43 All systems ED: reviewed and negative except as stated. Review of Systems: As Per HPI Constitutional: Reports: weakness (generalized weakness). Denies: fever, chills Eyes: Denies: eye pain, vision change ENT ED: Denies: throat pain, congestion Cardiovascular: Denies: chest pain, palpitations, syncope Respiratory: Denies: cough, dyspnea Gastrointestinal: Reports: nausea, vomiting. Denies: abdominal pain, diarrhea, melena Genitourinary: Denies: dysuria, hematuria Musculoskeletal: Denies: back pain, neck pain Integumentary: Denies: rash Neurological: Denies: headache, weakness, numbness Abdominal Pain PMH - Past Medical History Medical history: Reports: diabetes, other Male Surgical History: Reports: Adenoidectomy, Tonsillectomy, other Psychiatric history: Reports: no psych history - Social History Smoking status: Never smoker Alcohol use: Reports: rarely Drug use: Reports: none Physical Exam - General Limitations: no limitations General appearance: alert, other (in mild distress, cachectic appearing) Course Course Narrative: I have personally seen and evaluated the patient along with the Medical Student. I have reviewed and confirmed the history of present illness, review of systems, family, medical, and surgical history and agree with the documentation except as documented below. HPI/ROS: Briefly, patient presenting with suspected DKA. Has been in the hospital twice for similar symptoms. Has an insulin pump that he was told was not working and that he should use subcutaneous insulin, but he thought the pump work, so he is been continuing use that. Complaining of pain all over his body and nausea. States that he feels like he is in DKA again. Physical exam: CONSTITUTIONAL: [Chronically ill appearing in no acute distress] SKIN: [Warm, dry, and intact without rash] EYES: [extraocular movements are grossly intact, clear conjunctiva] HENT: [Normocephalic, atraumatic, moist mucus membranes] NECK: [no obvious swelling, normal range of motion] PULMONARY: [normal chest rise and fall, no respiratory distress or stridor CARDIOVASCULAR: [regular rate, distal extremities are warm and well perfused] GASTROINSTESTINAL: [nondistended, mild epigastric tenderness without guarding or rebound] GENITOURINARY: [deferred] NEUROLOGIC: [normal speech, moves all extremities, does keep eyes closed but states it is because he "wants a new body."] MUSCULOSKELETAL: [no gross deformities, atraumatic] PSYCHIATRIC: [normal mood and affect] - Reevaluation(s) Reevaluation #1: Patient's labs are consistent with DKA. He has a hyponatremic, hypochloremic metabolic acidosis, so we will continue him on normal saline at 250 an hour. Potassium is 5.9. We will not supplement at this time. Patient started on insulin drip and will be admitted ICU. Patient accepted to the hospitalist service. Vital Signs Temperature 97.6 F 04/09/18 17:44 Pulse Rate 88 04/09/18 17:44 Respiratory Rate 20 04/09/18 17:44 Blood Pressure 94/63 04/09/18 17:44 O2 Sat by Pulse Oximetry 100 04/09/18 17:44 Temperature 97.6 F 04/09/18 18:22 Pulse Rate 99 04/09/18 18:22 Respiratory Rate 20 04/09/18 18:22 Blood Pressure 125/76 04/09/18 18:22 O2 Sat by Pulse Oximetry 100 04/09/18 18:22 Oxygen Delivery Oxygen Delivery Room Air Abdominal Pain - Medical Records Medical records reviewed: Yes I reviewed the patient's medical records. - Lab Data Lab results reviewed: Yes I reviewed the patient's lab results. Result diagrams: 04/09/18 19:27 04/09/18 18:05 Lab Results 04/09/18 04/09/18 04/09/18 Range/Units 18:05 18:22 18:24 VBG pH (7.32-7.42) pH Units VBG pCO2 (41-51) mmHg VBG pO2 (25-50) mmHg VBG HCO3 (21-27) mEq/L Sodium 130 L (136-145) mEq/L Potassium 5.9 H (3.5-5.1) mEq/L Chloride 93 L (98-107) mEq/L Carbon Dioxide 6 L* (23-29) mEq/L BUN 25 H (6-20) mg/dL Creatinine 1.36 H (0.70-1.30) mg/dL Est GFR ( Amer) > 60 (> 60) Est GFR (Non-Af Amer) 56 L (> 60) BUN/Creatinine Ratio 18 (6-26) Glucose 553 H* (70-105) mg/dL POC Glucose 406 H* (70-99) mg/dL Calculated Osmolality 300 (280-300) Lactic Acid (0.5-2.2) mmol/L Calcium 10.0 (8.6-10.3) mg/dL Phosphorus 7.0 H (2.7-4.5) mg/dL Magnesium 2.6 (1.6-2.6) mg/dL Beta-Hydroxybutyric Acd (0.02-0.27) mmol/L Urine Color Yellow (Yellow) Urine Clarity Clear (Clear) Urine pH 5.0 (5.0-8.0) pH Units Ur Specific [place] 1.023 (1.010-1.025) Urine Protein 30 H (Neg-Trace) mg/dL Urine Glucose (UA) >=1000 H (Normal) mg/dL Urine Ketones 80 H (Negative) mg/dL Urine Blood Trace H (Negative) Urine Nitrite Negative (Negative) Urine Bilirubin Negative (Negative) Urine Urobilinogen Normal (Normal) mg/dL Ur Leukocyte Esterase Negative (Negative) Urine Microscopic RBC 0-3 (0-3) per hpf Urine Microscopic WBC 0-3 (0-3) per hpf Ur Squamous Epith Cells None Seen (None-Few) per lpf Urine Bacteria None Seen (None-Few) per hpf Hyaline Casts None Seen (None-Few) per lpf Ur Culture Indicated? NO (NO) Urine Opiates Screen (Kblauz=698) ng/mL Ur Barbiturates Screen (Zzjvrr=917) ng/mL Ur Phencyclidine Scrn (Cutoff=25) ng/mL Ur Amphetamines Screen (Wbtbob=1166) ng/mL U Benzodiazepines Scrn (Xvyhut=917) ng/mL Urine Cocaine Screen (Cutoff= 300) ng/mL U Marijuana (THC) Screen (Cutoff = 50) ng/mL Ur Drug Screen Interp Specimen Rejected Person Notif of Crit 04/09/18 04/09/18 04/09/18 Range/Units 18:25 18:25 18:30 VBG pH (7.32-7.42) pH Units VBG pCO2 (41-51) mmHg VBG pO2 (25-50) mmHg VBG HCO3 (21-27) mEq/L Sodium (136-145) mEq/L Potassium (3.5-5.1) mEq/L Chloride (98-107) mEq/L Carbon Dioxide (23-29) mEq/L BUN (6-20) mg/dL Creatinine (0.70-1.30) mg/dL Est GFR ( Amer) (> 60) Est GFR (Non-Af Amer) (> 60) BUN/Creatinine Ratio (6-26) Glucose (70-105) mg/dL POC Glucose 440 H* (70-99) mg/dL Calculated Osmolality (280-300) Lactic Acid (0.5-2.2) mmol/L Calcium (8.6-10.3) mg/dL Phosphorus (2.7-4.5) mg/dL Magnesium (1.6-2.6) mg/dL Beta-Hydroxybutyric Acd > 2.00 H (0.02-0.27) mmol/L Urine Color (Yellow) Urine Clarity (Clear) Urine pH (5.0-8.0) pH Units Ur Specific [place] (1.010-1.025) Urine Protein (Neg-Trace) mg/dL Urine Glucose (UA) (Normal) mg/dL Urine Ketones (Negative) mg/dL Urine Blood (Negative) Urine Nitrite (Negative) Urine Bilirubin (Negative) Urine Urobilinogen (Normal) mg/dL Ur Leukocyte Esterase (Negative) Urine Microscopic RBC (0-3) per hpf Urine Microscopic WBC (0-3) per hpf Ur Squamous Epith Cells (None-Few) per lpf Urine Bacteria (None-Few) per hpf Hyaline Casts (None-Few) per lpf Ur Culture Indicated? (NO) Urine Opiates Screen Negative (Pzrsgs=373) ng/mL Ur Barbiturates Screen Negative (Vyceqd=984) ng/mL Ur Phencyclidine Scrn Negative (Cutoff=25) ng/mL Ur Amphetamines Screen Negative (Lqjypq=0953) ng/mL U Benzodiazepines Scrn Negative (Fgiwqv=154) ng/mL Urine Cocaine Screen Negative (Cutoff= 300) ng/mL U Marijuana (THC) Screen Negative (Cutoff = 50) ng/mL Ur Drug Screen Interp See Below Specimen Rejected Person Notif of Crit 04/09/18 04/09/18 04/09/18 Range/Units 18:30 18:30 18:44 VBG pH 7.02 L* (7.32-7.42) pH Units VBG pCO2 27 L (41-51) mmHg VBG pO2 51 H (25-50) mmHg VBG HCO3 7 L (21-27) mEq/L Sodium (136-145) mEq/L Potassium (3.5-5.1) mEq/L Chloride (98-107) mEq/L Carbon Dioxide (23-29) mEq/L BUN (6-20) mg/dL Creatinine (0.70-1.30) mg/dL Est GFR ( Amer) (> 60) Est GFR (Non-Af Amer) (> 60) BUN/Creatinine Ratio (6-26) Glucose (70-105) mg/dL POC Glucose (70-99) mg/dL Calculated Osmolality (280-300) Lactic Acid 3.9 H (0.5-2.2) mmol/L Calcium (8.6-10.3) mg/dL Phosphorus (2.7-4.5) mg/dL Magnesium (1.6-2.6) mg/dL Beta-Hydroxybutyric Acd (0.02-0.27) mmol/L Urine Color (Yellow) Urine Clarity (Clear) Urine pH (5.0-8.0) pH Units Ur Specific [place] (1.010-1.025) Urine Protein (Neg-Trace) mg/dL Urine Glucose (UA) (Normal) mg/dL Urine Ketones (Negative) mg/dL Urine Blood (Negative) Urine Nitrite (Negative) Urine Bilirubin (Negative) Urine Urobilinogen (Normal) mg/dL Ur Leukocyte Esterase (Negative) Urine Microscopic RBC (0-3) per hpf Urine Microscopic WBC (0-3) per hpf Ur Squamous Epith Cells (None-Few) per lpf Urine Bacteria (None-Few) per hpf Hyaline Casts (None-Few) per lpf Ur Culture Indicated? (NO) Urine Opiates Screen (Mzjtan=952) ng/mL Ur Barbiturates Screen (Fkcily=046) ng/mL Ur Phencyclidine Scrn (Cutoff=25) ng/mL Ur Amphetamines Screen (Zmqceu=5803) ng/mL U Benzodiazepines Scrn (Srdtiv=146) ng/mL Urine Cocaine Screen (Cutoff= 300) ng/mL U Marijuana (THC) Screen (Cutoff = 50) ng/mL Ur Drug Screen Interp Specimen Rejected Miscellaneous Person Notif of Joss SYKES - Radiology Data Radiology results reviewed: Yes I reviewed the patient's radiology results. - EKG Data EKG attestation: Yes I reviewed and interpreted this EKG. EKG results narrative: Sinus rhythm, rate 97, normal axis, no acute ischemic changes Critical Care Time Critical Care Time: Yes Total Critical Care Time: 35 Attestation: I personally spent ____35__ minutes devoted to the care of this critically ill patient in DKA requiring the ICU. This time excludes the time for billable procedures.
[2018-04-09] MEDS ORDERED: Insulin Human Regular 100 UNIT in 0.9 % Sodium Chloride 100 ML IVC SCH (19:30)
[2018-04-09] MEDS ORDERED: 0.9 % Sodium Chloride 1,000 ML IVC SCH (19:30)
[2018-04-09] MEDS ORDERED: Naloxone 0.4 MG/ML INJ IVP PRN ×2 (19:44→20:23)
[2018-04-09 19:46] LABS: Basophils % 0.4 %; Hematocrit 43.6 % (37.5-50.1); Hemoglobin 14.3 g/dL (12.9-16.9); Immature Granulocytes % 0.5 % (0-4); Lymphocytes % 18.4 %; Mean Corpuscular HGB Conc 32.8 g/dL (31.6-35.5); Mean Corpuscular Hemoglobin 29.9 pg (28.0-33.3); Mean Platelet Volume 10.2 fL (9.4-12.4); Monocytes # 0.8 K/mcL (0.0-1.3); Monocytes % 7.7 %; Neutrophils # 7.8 K/mcL (1.6-8.9); Platelet Count 273 K/mcL (140-400); Red Blood Count 4.79 M/mcL (4.19-5.50)
--- NOTE | 2018-04-09 20:18 | Internal Med History&Physical ---
<Bg Guillen - Last Filed: 04/09/18 21:24> Date of Encounter: 04/09/18 Time of Encounter: 20:17 Internal Medicine - H&P: HPI Chief complaint: Weakness, fatigue, nausea Admitted From: Home Plans for Post Hospital Care: Home History of present illness: Mr. Michel is a 48 year old male with PMHx Diabetes Mellitus Type I who presents with weakness, fatigue, nausea, vomiting for the past 24 hours. States he has had multiple episodes of DKA in the past, and has been in the hospital for DKA twice already this week. Notes that for the past day, he has increasingly been nauseous, weak, fatigued, and has vomited three times as of this morning. Noted that he has been using an insulin pump, but the pump has not been working correctly, and thus he has not been receiving his doses of insulin. Notes glucose levels have been uncontrolled. As of last night, sugars were in the 500s, and this morning in the 400s. Most recent HbAIC = 12.9 (04/03/18). Follows with manager call center at [facility]. Recently admitted and discharged from [facility] with DKA on two separate occasions this past week on 04/04/18 and 04/07/18. On discharge, pt was told to start giving himself SQ insulin injections, but pt has insisted on using his insulin pump. States sugars tend to run in the 200s. Currently notes feeling fatigued, but weakness and nausea is under control. Denies fevers/chills, headaches, vision changes, chest pain, palpitations, abdominal pain, diarrhea, dysuria. In the ED, initial vitals were as follow: T = 97.6; HR = 88; RR = 20; BP = 94/63; O2 = 100 on RA. Pt resting comfortably at bedside in no acute distress. Mucous membranes appear dry, and pt appears extremely fatigue, but PE otherwise benign. CBC: within normal limits VBG: pH = 7.02; pCO2 = 27; pO2 = 51; HCO3 = 7 BMP: Na = 130; K = 5.9; Cl = 93; CO2 = 6; Bun/Cr = 25/1.36; Glucose = 553 Anion Gap = 31; Corrected Na = 136 Lactic Acid = 3.9 Beta-Hydroxybutyric Acid = >2.0 HbA1c (04/03/18) = 12.9 UA: Urine glucose positive, ketones positive UTox: Negative EKG: NSR, HR = 97; Normal axis; no acute ST changes Pt was given IVF and started on insulin drip in the ED. Admitted to hospital service for management of DKA. Past Med Surg Social Fam HX - Past Medical History Attestation: Yes The following information was validated with the patient. Source: patient, old records reviewed Medical history: diabetes, other Psychiatric history: no psych history - Past Surgical History Surgical History: other Additional surgical history: T&A, oral surgery - Social History Smoking Status: Never smoker Smokeless Tobacco Status: No Alcohol use: rarely Drug use: none - Family History Mother Hx Family Autoimmune Disorders: Yes (RA) Father Hx Family Endocrine Disorder: Yes Hx Family Autoimmune Disorders: Yes (Grave's disease) Internal Medicine - H&P: Meds Alcohol Antiseptic Pads [Alcohol Pads] 1 each QID #120 med..pad 04/07/18 [Rx] Blood Sugar Diagnostic [Blood Glucose Test Strip] 1 each QID #120 strip 04/07/18 [Rx] Insulin DETEMIR [Levemir] 15 unit SQ HS #2 vial 04/07/18 [Rx] Insulin LISPRO [HumaLOG] 8 units SQ TIDWM #2 vial 04/07/18 [Rx] Lancets/Blood Glucose Strips [Fora [id number] Strp-Lnct] 1 each QID #120 combo..pkg 04/07/18 [Rx] Syrge-Ndl,Ins 0.3 ml [place] [Insulin Syringe] 1 each QID #120 disp.syrin 04/07/18 [Rx] Allergy/AdvReac Type Severity Reaction Status Date / Time No Known Allergies Allergy Verified 04/09/18 17:43 All Systems PM: A 10-system review of systems was performed and is negative for pertinent findings except as documented above in the HPI. - Constitutional Constitutional: fatigue, lethargy, malaise, weakness, no chills, no fever(s), no falls - EENT Eyes: no blurry vision, no change in vision Nose, mouth and throat: dry mouth, no facial pain, no nasal congestion, no neck pain, no post-nasal drip, no sinus pain - Cardiovascular Cardiovascular ROS IM: no chest pain, no dyspnea, no dyspnea on exertion, no edema, no lightheadedness, no palpitations, no syncope - Respiratory Respiratory: no cough, no dyspnea, no hemoptysis - Gastrointestinal Gastrointestinal: nausea, vomiting, no abdominal pain, no constipation, no diarrhea - Genitourinary Genitourinary ROS male: no dysuria - Integumentary Integumentary IM: no rash - Neurological Neurological ROS: no confusion, no dizziness, no headache(s) - Endocrine Endocrine IM: fatigue, polyuria - Constitutional Vitals: Temp Pulse Resp BP Pulse Ox 97.6 F 110 18 139/77 100 04/09/18 18:22 04/09/18 19:58 04/09/18 19:58 04/09/18 19:58 04/09/18 19:58 General appearance: Present: cooperative, A&O X 3, no acute distress, answers questions appropriately Exam: GEN: Atraumatic, normocephalic; resting comfortably in bed; appears fatigued HEENT: Atraumatic, normocephalic; EOMI; PERRLA; mucous membranes appear dry; no conjunctival pallor; no scleral icterus CARDIO: RRR, no murmurs, rubs, gallops RESP: CTAB, no wheezes, rales, rhonchi ABD: Soft, non-tender, non-distended; bowel sounds present NEURO: CN 2 - 12 intact; no focal deficits EXT: No lower extremity edema b/l; no rashes or lesions Internal Med - H&P Results - Labs CBC & Chem 7: 04/09/18 19:27 04/09/18 18:05 Labs: Short CBC 04/09/18 Range/Units 19:27 WBC 10.7 D (4.3-11.1) K/mcL Hgb 14.3 D (12.9-16.9) g/dL Hct 43.6 (37.5-50.1) % Plt Count 273 D (140-400) K/mcL Neutrophils # 7.8 (1.6-8.9) K/mcL BMP 04/09/18 18:05 Sodium 130 L Potassium 5.9 H Chloride 93 L Carbon Dioxide 6 L* BUN 25 H Creatinine 1.36 H Glucose 553 H* Calcium 10.0 Urine 04/09/18 Range/Units 18:22 Urine Color Yellow (Yellow) Urine Clarity Clear (Clear) Urine pH 5.0 (5.0-8.0) pH Units Ur Specific [place] 1.023 (1.010-1.025) Urine Protein 30 H (Neg-Trace) mg/dL Urine Glucose (UA) >=1000 H (Normal) mg/dL - ABG Interpretation ABG results: 04/09/18 18:44 VBG pH 7.02 L* VBG pCO2 27 L VBG pO2 51 H VBG HCO3 7 L - Impressions ITS Impressions Chest X-Ray 04/09/18 18:05 IMPRESSION: Negative portable study. D/ / Erica Banda Cha, MD / Erica Banda Cha, MD Interpreting Provider: Erica Banda Cha, MD - Assessment and plan (1) DKA (diabetic ketoacidoses) Current Visit: Yes Status: Acute Assessment and plan: Mr. Michel is a 48 year old male with PMHx Diabetes Mellitus Type I who presents with weakness, fatigue, nausea, vomiting for the past 24 hours. States he has had multiple episodes of DKA in the past, and has been in the hospital for DKA twice already this week. Notes he has been using insulin pump, but pump has not been functioning as of recently Most recent HbAIC = 12.9 (04/03/18) Initial Vitals: T = 97.6; HR = 88; RR = 20; BP = 94/63; O2 = 100 on RA VBG: pH = 7.02; pCO2 = 27; pO2 = 51; HCO3 = 7 BMP: Na = 130; K = 5.9; Cl = 93; CO2 = 6; Bun/Cr = 25/1.36; Glucose = 553 Anion Gap = 31; Corrected Na = 136 Beta-Hydroxybutyric Acid = >2.0 PLAN: Cont insulin drip per DKA protocol Cont with 0.45% NS - due to corrected Na within normal limits No potassium supplementation (K = 5.9) or bicarb (pH = 7.02) at this time BMP, VBG q2h Switch to SQ Insulin when anion gap closes; Cont insulin drip for 1 hour Monitor vitals Monitor glucose ACHS with resumption of diet Qualifiers: Diabetes mellitus type: type 1 Diabetes mellitus complication detail: without coma Qualified Code(s): E10.10 - Type 1 diabetes mellitus with ketoacidosis without coma (2) DVT prophylaxis Current Visit: Yes Status: Acute Assessment and plan: Heparin SQ BID - Time Spent With Patient Total time spent is greater than 50% in coordination of care (as documented) at patient's floor/unit and/or counseling patient: less than 15 minutes <Kimmy Tubbs - Last Filed: 04/10/18 06:59> Date of Encounter: 04/09/18 Internal Medicine - H&P: HPI History of present illness: Mr. Michel is a 48 year old male All Systems PM: A 10-system review of systems was performed and is negative for pertinent findings except as documented above in the HPI. - Constitutional Vitals: Temp Pulse Resp BP Pulse Ox 98.0 F 105 16 114/63 97 04/10/18 04:25 04/10/18 04:25 04/10/18 04:25 04/10/18 04:25 04/10/18 04:25 Internal Med - H&P Results - Labs CBC & Chem 7: 04/10/18 05:03 04/10/18 03:36 Labs: Short CBC 04/09/18 04/10/18 Range/Units 19:27 05:03 WBC 10.7 D 8.2 (4.3-11.1) K/mcL Hgb 14.3 D 12.2 L D (12.9-16.9) g/dL Hct 43.6 34.9 L (37.5-50.1) % Plt Count 273 D 237 (140-400) K/mcL Neutrophils # 7.8 5.8 (1.6-8.9) K/mcL BMP 04/09/18 04/09/18 04/09/18 18:05 21:08 22:42 Sodium 130 L 133 L 134 L Potassium 5.9 H 5.1 4.6 Chloride 93 L 102 107 Carbon Dioxide 6 L* 4 L* 6 L* BUN 25 H 24 H 22 H Creatinine 1.36 H 1.23 1.07 Glucose 553 H* 405 H 278 H Calcium 10.0 8.9 8.5 L 04/10/18 04/10/18 01:39 03:36 Sodium 133 L 133 L Potassium 4.6 4.2 Chloride 108 H 109 H Carbon Dioxide 10 L* 14 L BUN 19 17 Creatinine 0.97 0.93 Glucose 204 H 196 H Calcium 8.1 L 8.2 L Urine 04/09/18 Range/Units 18:22 Urine Color Yellow (Yellow) Urine Clarity Clear (Clear) Urine pH 5.0 (5.0-8.0) pH Units Ur Specific [place] 1.023 (1.010-1.025) Urine Protein 30 H (Neg-Trace) mg/dL Urine Glucose (UA) >=1000 H (Normal) mg/dL - ABG Interpretation ABG results: 04/09/18 04/09/18 04/09/18 18:44 21:18 22:56 VBG pH 7.02 L* 7.05 L* 7.17 L* D VBG pCO2 27 L 20 L 18 L VBG pO2 51 H 82 H 126 H VBG HCO3 7 L 6 L 6 L 04/10/18 04/10/18 04/10/18 01:52 04:07 05:33 VBG pH 7.27 L 7.31 L 7.30 L VBG pCO2 24 L 28 L 29 L VBG pO2 149 H 182 H 168 H VBG HCO3 11 L 14 L 14 L - Impressions ITS Impressions Chest X-Ray 04/09/18 18:05 IMPRESSION: Negative portable study. D/ / Erica Banda Cha, MD / Erica Banda Cha, MD Interpreting Provider: Erica Banda Cha, MD - Time Spent With Patient Total time spent is greater than 50% in coordination of care (as documented) at patient's floor/unit and/or counseling patient: - Attending Attestation I performed a history and physical examination of the patient and discussed his management with the resident. I reviewed the resident's note and agree with the documented findings and plan of care. Patient admitted for recurrent DKA secondary to insulin pump malfunction despite previous instruction not to use insulin pump. Treat per protocol.
[2018-04-09] MEDS ORDERED: D5% in 0.45% NACL 1,000 ML IVC PRN (20:23)
[2018-04-09 21:25] LABS: VBG HCO3 6 mEq/L (21-27); VBG PCO2 20 mmHg (41-51); VBG PH 7.05 pH Units (7.32-7.42); VBG PO2 82 mmHg (25-50)
[2018-04-09 21:42] LABS: BUN/Creatinine Ratio 20 (6-26); Blood Urea Nitrogen 24 mg/dL (6-20); Calcium 8.9 mg/dL (8.6-10.3); Carbon Dioxide 4 mEq/L (23-29); Chloride 102 mEq/L (98-107); Glucose 405 mg/dL (70-105); Osmolality,Calculated 297 (280-300); Potassium 5.1 mEq/L (3.5-5.1); Sodium 133 mEq/L (136-145); eGFR For Non-African Americans > 60 (> 60)
[2018-04-09] MEDS: 0.45 % Sodium Chloride w/KCl 20 MEQ/1,000 ML MLS IVC SCH (22:21)
[2018-04-09 23:04] LABS: VBG HCO3 6 mEq/L (21-27); VBG PCO2 18 mmHg (41-51); VBG PH 7.17 pH Units (7.32-7.42); VBG PO2 126 mmHg (25-50)
[2018-04-09 23:21] LABS: BUN/Creatinine Ratio 21 (6-26); Blood Urea Nitrogen 22 mg/dL (6-20); Calcium 8.5 mg/dL (8.6-10.3); Carbon Dioxide 6 mEq/L (23-29); Chloride 107 mEq/L (98-107); Glucose 278 mg/dL (70-105); Osmolality,Calculated 291 (280-300); Potassium 4.6 mEq/L (3.5-5.1); Sodium 134 mEq/L (136-145); eGFR For Non-African Americans > 60 (> 60)
[2018-04-10] MEDS ORDERED: D5% in 0.45% NACL w KCl 20 MEQ/1,000 ML MLS IVC ONE (00:21)
[2018-04-10] MEDS: 0.45 % Sodium Chloride w/KCl 20 MEQ/1,000 ML MLS IVC SCH ×3 (00:25→04:28)
[2018-04-10] MEDS ORDERED: Insulin Human Regular 100 UNIT in 0.9 % Sodium Chloride 100 ML IVC SCH (00:30)
[2018-04-10] MEDS: D5% in 0.45% NACL w KCl 20 MEQ/1,000 ML MLS IVC SCH ×2 (00:34→04:26)
[2018-04-10 01:55] LABS: VBG HCO3 11 mEq/L (21-27); VBG PCO2 24 mmHg (41-51); VBG PH 7.27 pH Units (7.32-7.42); VBG PO2 149 mmHg (25-50)
[2018-04-10 02:33] LABS: BUN/Creatinine Ratio 20 (6-26); Blood Urea Nitrogen 19 mg/dL (6-20); Calcium 8.1 mg/dL (8.6-10.3); Carbon Dioxide 10 mEq/L (23-29); Chloride 108 mEq/L (98-107); Glucose 204 mg/dL (70-105); Osmolality,Calculated 284 (280-300); Potassium 4.6 mEq/L (3.5-5.1); Sodium 133 mEq/L (136-145); eGFR For Non-African Americans > 60 (> 60)
[2018-04-10 04:11] LABS: VBG HCO3 14 mEq/L (21-27); VBG PCO2 28 mmHg (41-51); VBG PH 7.31 pH Units (7.32-7.42); VBG PO2 182 mmHg (25-50)
[2018-04-10 04:26] LABS: BUN/Creatinine Ratio 18 (6-26); Blood Urea Nitrogen 17 mg/dL (6-20); Calcium 8.2 mg/dL (8.6-10.3); Carbon Dioxide 14 mEq/L (23-29); Chloride 109 mEq/L (98-107); Glucose 196 mg/dL (70-105); Osmolality,Calculated 283 (280-300); Potassium 4.2 mEq/L (3.5-5.1); Sodium 133 mEq/L (136-145); eGFR For Non-African Americans > 60 (> 60)
[2018-04-10] MEDS ORDERED: Insulin DETEMIR 100 UNIT/ML X5UNITS SQ ONE (04:35)
[2018-04-10] MEDS: *HR* Heparin 5,000 UNIT/ML VIAL SQ SCH ×2 (05:19→18:53)
[2018-04-10 05:36] LABS: VBG HCO3 14 mEq/L (21-27); VBG PCO2 29 mmHg (41-51); VBG PO2 168 mmHg (25-50)
[2018-04-10 05:53] LABS: Basophils % 0.1 %; Eosinophils % 0.2 %; Hematocrit 34.9 % (37.5-50.1); Hemoglobin 12.2 g/dL (12.9-16.9); Immature Granulocytes % 0.2 % (0-4); Lymphocytes # 1.5 K/mcL (0.6-4.6); Lymphocytes % 18.3 %; Mean Corpuscular Hemoglobin 29.5 pg (28.0-33.3); Mean Corpuscular Volume 84.5 fL (83.0-100.0); Mean Platelet Volume 9.6 fL (9.4-12.4); Monocytes # 0.8 K/mcL (0.0-1.3); Monocytes % 10.2 %; Neutrophils # 5.8 K/mcL (1.6-8.9); Platelet Count 237 K/mcL (140-400); Red Blood Count 4.13 M/mcL (4.19-5.50); Red Cell Distribution Width 11.9 % (11.5-14.5)
[2018-04-10] MEDS: D5% in 0.9% NACL 1,000 ML IVC SCH ×3 (06:21→18:48)
[2018-04-10 09:10] LABS: VBG HCO3 16 mEq/L (21-27); VBG PCO2 33 mmHg (41-51); VBG PO2 219 mmHg (25-50)
[2018-04-10 09:29] LABS: BUN/Creatinine Ratio 18 (6-26); Blood Urea Nitrogen 16 mg/dL (6-20); Calcium 8.3 mg/dL (8.6-10.3); Carbon Dioxide 16 mEq/L (23-29); Chloride 111 mEq/L (98-107); Glucose 148 mg/dL (70-105); Osmolality,Calculated 284 (280-300); Potassium 3.9 mEq/L (3.5-5.1); Sodium 135 mEq/L (136-145); eGFR For Non-African Americans > 60 (> 60)
[2018-04-10] MEDS ORDERED: Ondansetron 4 MG/2 ML VIAL IVP PRN (09:49)
--- NOTE | 2018-04-10 10:11 | Internal Med Progress Note ---
Hospitalist Progress Note - Encounter Date of Encounter: 04/10/18 Time of Encounter: 10:11 - Subjective Interval History: Seen and examined at bedside Patient not complaint with SQ insulin while awaiting delivery of new pump, despite multiple educations Anion gap closed, PH improved No new complains Continue lispro and levemir and resume diet - Exam Vitals: Temp Pulse Resp BP Pulse Ox 99.5 F 70 18 115/71 97 04/10/18 06:55 04/10/18 07:28 04/10/18 06:55 04/10/18 06:55 04/10/18 06:55 Exam: VSS Gen - Awake, alert, oriented x 3, no acute distress HEENT - NCAT, PERRLA, EOMI, hearing grossly intact, oropharynx benign Heart -S1, S2, RRR, no m/g/r Resp - CTAB GI - Soft, not tender, no palpably enlarged organs, BS present in al quadrants Back: NO CVA tenderness Skin - Warm, dry, no rashes/lesions/ulcers Psych -Appropriate affect Extremities: Normal inspection, no pedal edema - Assessment and Plan (1) DKA (diabetic ketoacidoses) Current Visit: Yes Status: Acute Assessment and Plan: Bridge with levemir, lispro and sliding scale Continue ADA diet and supplement FS ACHS (2) DVT prophylaxis Current Visit: Yes Status: Acute Assessment and Plan: SQ heparin DVT Prophylaxis: SQ heparin - Time Spent with Patient Total time spent is greater than 50% in coordination of care (as documented) at patient's floor/unit and/or counseling patient: Plan of Care Discussed with: patient Internal Medicine: Result - Labs CBC & Chem 7: 04/10/18 05:03 04/10/18 08:56 Labs: Short CBC 04/09/18 04/10/18 Range/Units 19:27 05:03 WBC 10.7 D 8.2 (4.3-11.1) K/mcL Hgb 14.3 D 12.2 L D (12.9-16.9) g/dL Hct 43.6 34.9 L (37.5-50.1) % Plt Count 273 D 237 (140-400) K/mcL Neutrophils # 7.8 5.8 (1.6-8.9) K/mcL BMP 04/09/18 04/09/18 04/09/18 18:05 21:08 22:42 Sodium 130 L 133 L 134 L Potassium 5.9 H 5.1 4.6 Chloride 93 L 102 107 Carbon Dioxide 6 L* 4 L* 6 L* BUN 25 H 24 H 22 H Creatinine 1.36 H 1.23 1.07 Glucose 553 H* 405 H 278 H Calcium 10.0 8.9 8.5 L 04/10/18 04/10/18 04/10/18 01:39 03:36 08:56 Sodium 133 L 133 L 135 L Potassium 4.6 4.2 3.9 Chloride 108 H 109 H 111 H Carbon Dioxide 10 L* 14 L 16 L BUN 19 17 16 Creatinine 0.97 0.93 0.89 Glucose 204 H 196 H 148 H Calcium 8.1 L 8.2 L 8.3 L Urine 04/09/18 Range/Units 18:22 Urine Color Yellow (Yellow) Urine Clarity Clear (Clear) Urine pH 5.0 (5.0-8.0) pH Units Ur Specific [place] 1.023 (1.010-1.025) Urine Protein 30 H (Neg-Trace) mg/dL Urine Glucose (UA) >=1000 H (Normal) mg/dL - Impressions Impressions Chest X-Ray 04/09/18 18:05 IMPRESSION: Negative portable study. D/ / Erica Banda Cha, MD / Erica Banda Cha, MD Interpreting Provider: Eriac Banda Cha, MD Consult Discharge Plan - Plan Referrals: Jenaro Doherty MD [Primary Care Provider] - (1) DKA (diabetic ketoacidoses) Qualifiers: Diabetes mellitus type: type 1 Diabetes mellitus complication detail: without coma Qualified Code(s): E10.10 - Type 1 diabetes mellitus with ketoacidosis without coma
[2018-04-10] MEDS: Insulin LISPRO 300 UNITS/3 ML VIAL SQ SCH ×2 (17:05→17:07)
[2018-04-10] MEDS: Insulin DETEMIR 100 UNIT/ML X5UNITS SQ SCH (20:34)
[2018-04-11] MEDS: D5% in 0.9% NACL 1,000 ML IVC SCH (01:45)
[2018-04-11 05:13] LABS: BUN/Creatinine Ratio 15 (6-26); Blood Urea Nitrogen 11 mg/dL (6-20); Carbon Dioxide 22 mEq/L (23-29); Chloride 107 mEq/L (98-107); Glucose 258 mg/dL (70-105); Osmolality,Calculated 286 (280-300); Potassium 3.3 mEq/L (3.5-5.1); Sodium 134 mEq/L (136-145); eGFR For Non-African Americans > 60 (> 60)
[2018-04-11] MEDS: *HR* Heparin 5,000 UNIT/ML VIAL SQ SCH ×2 (06:31→17:36)
[2018-04-11] MEDS: Insulin LISPRO 300 UNITS/3 ML VIAL SQ SCH ×7 (08:05→17:31)
--- NOTE | 2018-04-11 11:16 | Internal Med Progress Note ---
Hospitalist Progress Note - Encounter Date of Encounter: 04/11/18 Time of Encounter: 11:15 - Subjective Interval History: Seen and examined at bedside Patient not complaint with SQ insulin while awaiting delivery of new pump, despite multiple educations Anion gap closed, PH improved Tolerating po, FS improving, will increase lispro I had a phone discussion with patient's technical specialist who agrees he should be discharged from the hospital to her office a.m She reports his non-compliance issue is chronic and she has trainers in the office that will see him along with her tomorrow 04/12 9.30 am We will continue current management and patient is educated about plan of care - Exam Vitals: Temp Pulse Resp BP Pulse Ox 97.8 F 68 16 112/68 99 04/11/18 06:48 04/11/18 06:48 04/11/18 06:48 04/11/18 06:48 04/11/18 06:48 Exam: VSS Gen - Awake, alert, oriented x 3, no acute distress HEENT - NCAT, PERRLA, EOMI, hearing grossly intact, oropharynx benign Heart -S1, S2, RRR, no m/g/r Resp - CTAB GI - Soft, not tender, no palpably enlarged organs, BS present in al quadrants Back: NO CVA tenderness Skin - Warm, dry, no rashes/lesions/ulcers Psych -Appropriate affect Extremities: Normal inspection, no pedal edema - Assessment and Plan (1) DKA (diabetic ketoacidoses) Current Visit: Yes Status: Resolved Assessment and Plan: Resolved Continue levemir, lispro and sliding scale Continue ADA diet and supplement FS ACHS (2) DVT prophylaxis Current Visit: Yes Status: Acute Assessment and Plan: SQ heparin DVT Prophylaxis: SQ heparin - Time Spent with Patient Total time spent is greater than 50% in coordination of care (as documented) at patient's floor/unit and/or counseling patient: Plan of Care Discussed with: patient Internal Medicine: Result - Labs CBC & Chem 7: 04/10/18 05:03 04/11/18 04:35 Labs: BMP 04/11/18 04:35 Sodium 134 L Potassium 3.3 L Chloride 107 Carbon Dioxide 22 L BUN 11 Creatinine 0.73 Glucose 258 H Calcium 8.0 L Consult Discharge Plan - Plan Referrals: Jenaro Doherty MD [Primary Care Provider] - (1) DKA (diabetic ketoacidoses) Qualifiers: Diabetes mellitus type: type 1 Diabetes mellitus complication detail: without coma Qualified Code(s): E10.10 - Type 1 diabetes mellitus with ketoacidosis without coma
[2018-04-11] MEDS: Insulin DETEMIR 100 UNIT/ML X5UNITS SQ SCH (20:56)
[2018-04-12 05:01] LABS: BUN/Creatinine Ratio 20 (6-26); Blood Urea Nitrogen 12 mg/dL (6-20); Calcium 8.2 mg/dL (8.6-10.3); Carbon Dioxide 29 mEq/L (23-29); Chloride 103 mEq/L (98-107); Glucose 127 mg/dL (70-105); Osmolality,Calculated 283 (280-300); Sodium 136 mEq/L (136-145); eGFR For Non-African Americans > 60 (> 60)
[2018-04-12] MEDS: *HR* Heparin 5,000 UNIT/ML VIAL SQ SCH (06:20)
[2018-04-12 07:49] VITALS: BP 103/77
--- NOTE | 2018-04-12 08:20 | Discharge Summary ---
- NOTES TO OUTPATIENT PROVIDER Notes to Outpatient Provider: Patient re-admited for DKA due to non-compliance with insulin and insulin pump malfunction and regimen. He has been bridged with levemir and lispro SQ and is discharged home in stable clinical condition. He is to see his Aircraft De Icer Installer -Dr. Allan barahona mrn and follow up with PCP for repeat Chem check for hypokalemia. Orders not resulted at time of discharge: Pending orders 04/09/18 18:05 ECG 12 lead ECG [ECG] Stat Date of Encounter: 04/12/18 Time of Encounter: 08:18 - Discharge Diagnosis (1) DKA (diabetic ketoacidoses) Priority: Primary Status: Resolved Qualifiers: Diabetes mellitus type: type 1 Diabetes mellitus complication detail: without coma Qualified Code(s): E10.10 - Type 1 diabetes mellitus with ketoacidosis without coma (2) DVT prophylaxis Priority: Primary Status: Resolved Hospital course: Mr. Michel is a 48 year old male with Type I DM, on insulin via his insulin pump who is admitted for the third time within 2 weeks for management of DKA, due to non-compliance with his insulin regimen and suspected malfunction of his insulinpump, the patient was previously discharged with SQ insulin, but declined using it His DKA has resolved, he is tolerating po and FS have been controlled on levemir and lispro He has persistent hypokalemia and is discharged home with potassium pills, follow up with PCP for repeat Chem check and possible discontinuation of replacements. I had a phone discussion with patient's traffic technician Dr. Lemus, who agrees he should be discharged from the hospital to her office today She reports his non-compliance issue is chronic and she has trainers in the office that will see him along with her today at 930 a.m Plan of care discussed with the patient who verbalized understanding Discharge discussed with: patient, nurse, media consultant - Time Spent with Patient Total time spent providing and/or coordinating discharge services: Less than 30 minutes - Discharge Medications Prescriptions: Insulin DETEMIR [Levemir] 10 unit SQ HS #2 vial Potassium Chloride 40 meq PO DAILY 15 Days #30 tab.[email or web address] Home Medications: Insulin LISPRO [HumaLOG] 8 units SQ TIDWM #2 vial 04/07/18 [Rx] Insulin DETEMIR [Levemir] 10 unit SQ HS #2 vial 04/12/18 [Rx] Potassium Chloride 40 meq PO DAILY 15 Days #30 [email or web address].prt 04/12/18 [Rx] Allergies/Adverse Reactions: Allergy/AdvReac Type Severity Reaction Status Date / Time No Known Allergies Allergy Verified 04/09/18 17:43 Date of admission: 04/09/18 20:02 Primary care physician: Jenaro Doherty MD Consults: 04/09/18 20:23 Consult for Pharmacy Education [CONS] Routine Reason for Consult: Pt continues to use insulin pump which has not been functioning, rather than SQ Insulin Call Completed: No 04/09/18 21:06 Consult to Nutrition [CONS] Routine Comment: Consulting Provider: NUTRITION Reason for Dietary Consult: MST Score Discharging clinician: Daniel Hubbard Anticipated date of discharge: 04/12/18 - Constitutional Vitals: Temp Pulse Resp BP Pulse Ox 97.4 F L 86 18 103/77 99 04/12/18 07:45 04/12/18 07:45 04/12/18 07:45 04/12/18 07:45 04/12/18 07:45 General appearance: Present: cooperative, A&O X 3, no acute distress, answers questions appropriately Exam: see below - Head Head exam: Present: atraumatic, normocephalic - Eye Eye exam: Present: PERRL, conjuntiva pink, sclera anicteric Pupils: Present: PERRL - Neck Neck exam general surgery: Present: supple, trachea midline. Absent: lymphadenopathy - Respiratory Respiratory exam: Present: CTAB. Absent: accessory muscle use, rales, rhonchi, wheezes - Cardiovascular Cardiovascular exam: Present: RRR, +S1, +S2. Absent: diastolic murmur, gallop, rubs, systolic murmur - GI/Abdominal GI/Abdominal exam: Present: normal bowel sounds, soft, no peritoneal signs. Absent: distended, tenderness - Extremities Exam Extremities exam: Present: warm, radial pulses palpable and symmetrical. Absent: calf tenderness, cyanotic, pedal edema - Neurological Exam Neurological exam: Present: CN II-XII intact, oriented X3, no focal deficits. Absent: pronater drift, facial droop, speech deficit - Skin Skin exam: Present: dry, intact - Patient Status Disposition: Home, Self-Care Condition: Good Functional capacity at discharge: independent ambulation Overall status at discharge: patient is back to baseline - Discharge Instructions Instructions: Hypokalemia (DC), Diabetic Ketoacidosis (DC), Gastroenteritis (DC) Follow Up With: Jenaro Doherty MD [Primary Care Provider] - - Diet and Activity Activity: resume usual activities as tolerated Diet: diabetic diet
[2018-04-12] MEDS: Insulin LISPRO 300 UNITS/3 ML VIAL SQ SCH ×2 (08:35→08:41)
--- NOTE | 2018-04-12 13:05 | Electrocardiograph Report ---
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
== END 2018-04-12 08:51 | disposition home or self-care (01) | DRG 420 ==
LOC: EMEROOARM 17:26 → 2NNU 17:26 → SUATTDRO 20:02 → 2NNU 20:44
PROVIDERS: ADMIT Family Medicine; ATTEND Internal Medicine

== ENCOUNTER 2018-05-30 18:31 | Observation (INO) ==
[2018-05-30] MEDS ORDERED: *HR* Dextrose 50 % in Water (Syg) 50 ML SYRINGE IVP PRN ×2 (18:47→20:11)
[2018-05-30] MEDS: 0.9 % Sodium Chloride 1,000 ML IVC SCH ×3 (18:55→22:04)
--- NOTE | 2018-05-30 18:55 | Emergency Department Note ---
Disposition Clinical Impression: DKA, type 1 Qualifiers: Diabetes mellitus complication detail: without coma Qualified Code(s): E10.10 - Type 1 diabetes mellitus with ketoacidosis without coma Disposition: Admitted As Inpatient Condition: Fair Time of Disposition: 19:53 General Adult HPI - General Chief complaint: ED General Medical Stated complaint: Elevated glucose Time Seen by Provider: 05/30/18 18:38 Source: patient Limitations: no limitations - History of Present Illness HPI Narrative: 48 y/o M hx DM type 1 presents with worsening fatigue , nausea and blurry vision since last night when his glucose was over 600. He attempted to correct hyperglycemia himself using insulin pump overnight. He last have 4.3 unites at 1700 in response to BG over 400. He admits to increased headache and tinnitus that he contributes to insulin side affect. He has improving nonproductive cough for last 3-4 weeks but has otherwise been well - he believes he overexerted himself with increased activity outside preparing for snow yesterday. He doesn't believe his insulin pump has malfunctioned. Associated symptoms of mild abdominal pain with out diarrhea or vomiting. He follows with endocrinology at [place] but was admitted fro DKA several times in March 2018. He denies other PMHx. Onset (ago): hour(s) Pain Scale: 0 - Related Data Previous Rx's Medication Instructions Recorded Insulin LISPRO [HumaLOG] 8 units SQ TIDWM #2 vial 04/07/18 Insulin DETEMIR [Levemir] 10 unit SQ HS #2 vial 04/12/18 Allergies Allergy/AdvReac Type Severity Reaction Status Date / Time No Known Allergies Allergy Verified 04/09/18 17:43 Eyes: Reports: vision change ENT ED: Denies: congestion Cardiovascular: Denies: chest pain, palpitations Respiratory: Reports: cough. Denies: dyspnea, wheezes Gastrointestinal: Reports: abdominal pain, nausea. Denies: vomiting, diarrhea Genitourinary: Denies: urgency, dysuria, hematuria Neurological: Reports: headache. Denies: weakness Past Medical History - Past Medical History Medical history: Reports: diabetes, hyperlipidemia, hypertension, other Surgical history: Reports: other Psychiatric history: Reports: no psych history - Social History Smoking Status: Never smoker Smokeless Tobacco Status: No Alcohol use: Reports: rarely Drug use: Reports: none Physical Exam - General Limitations: no limitations General appearance: alert, in no apparent distress - Head Head exam: atraumatic, normocephalic, normal inspection - Eye Eye exam: Present: normal appearance, PERRL, EOMI - ENT ENT exam: normal exam, normal oropharynx, mucous membranes dry - Expanded ENT Exam Teeth exam: Present: dental caries - Neck Neck exam: Present: normal inspection, full ROM - Chest Chest inspection: Present: normal inspection, symmetric chest wall rise - Respiratory Respiratory exam: Present: normal lung sounds bilaterally. Absent: respiratory distress, wheezes - Cardiovascular Cardiovascular exam: Present: normal rhythm, tachycardia, normal heart sounds - Abdominal Exam Abdominal exam: Present: soft, Non-Tender, normal bowel sounds - Extremities Exam Extremities exam: Present: normal inspection, full ROM, pedal edema (trace) - Neurological Exam Neurological exam: Present: alert, oriented X3 - Psychiatric Psychiatric exam: Present: normal affect, normal mood - Skin Skin exam: Present: warm, intact, diaphoresis Course Course Narrative: Type 1 DM presented with symptom of nausea, fatigue and abdominal pain with BG of 489. On exam patient's breath has sweet smell and he has clinical signs of dehydration . Thus initialed DKA treatment with IVF bolus of 2L. Lab of CBC, BMP, beta hydroxybuterate and US .. - Reevaluation(s) Reevaluation #1: Patient started vomiting food at 1915 - treat with zofran IV. BHB resulted greater than 2 - ancitpate patient will need admission for treatment of DKA. Likely precipitating factor was increased physical exertion yesterday Time: 19:16 Reevaluation #2: VBG with acidosis with ph 7.14 with decrease in HCO3 at 13 and mild decrease in CO2 at 38. We will obtain chest xray to evaluate for a source of infection. First one liter bolus completed. Time: 19:28 Reevaluation #3: BMP results with hyperglycemia 509, hyponatremia 125 and hyperkalemia 5.2 - corrected hyponatremia approx 133. UA postive for ketones aand glucose but with out signs of infection. Case discussed with Dr Aj of hospitalist service who accepted admission and suggested start insulin with 10 units now. Chest XR appears similar to past admits for DKA with out consolation or infiltrate - still awaiting report... Time: 19:55 Vital Signs Temperature 97.5 F L 01/20/19 18:33 Pulse Rate 97 05/30/18 18:33 Respiratory Rate 18 05/30/18 18:33 Blood Pressure 147/77 05/30/18 18:33 O2 Sat by Pulse Oximetry 100 05/30/18 18:33 Temperature 97.5 F L 05/30/18 18:41 Pulse Rate 97 05/30/18 20:07 Respiratory Rate 16 05/30/18 19:28 Blood Pressure 123/70 05/30/18 20:07 O2 Sat by Pulse Oximetry 96 05/30/18 20:07 Oxygen Delivery Oxygen Delivery Room Air Medical Decision Making - Medical Records Medical records reviewed: Yes I reviewed the patient's medical records. - Lab Data Lab results reviewed: Yes I reviewed the patient's lab results. Result diagrams: 05/30/18 18:56 05/30/18 18:56 Lab Results 05/30/18 05/30/18 05/30/18 Range/Units 18:56 18:56 18:56 WBC 8.5 (4.3-11.1) K/mcL RBC 5.07 (4.19-5.50) M/mcL Hgb 15.5 (12.9-16.9) g/dL Hct 44.7 (37.5-50.1) % MCV 88.2 (83.0-100.0) fL MCH 30.6 (28.0-33.3) pg MCHC 34.7 (31.6-35.5) g/dL RDW 12.0 (11.5-14.5) % Plt Count 223 (140-400) K/mcL MPV 10.2 (9.4-12.4) fL Immature Gran % 0.2 (0-4) % Seg Neutrophils % 70.0 % Lymphocytes % 22.5 % Monocytes % 6.4 % Eosinophils % 0.4 % Basophils % 0.5 % Neutrophils # 6.0 (1.6-8.9) K/mcL Lymphocytes # 1.9 (0.6-4.6) K/mcL Monocytes # 0.6 (0.0-1.3) K/mcL Eosinophils # 0.0 (0.0-0.6) K/mcL Basophils # 0.0 (0.0-0.2) K/mcL VBG pH (7.32-7.42) pH Units VBG pCO2 (41-51) mmHg VBG pO2 (25-50) mmHg VBG HCO3 (21-27) mEq/L Sodium 125 L (136-145) mEq/L Potassium 5.2 H (3.5-5.1) mEq/L Chloride 90 L (98-107) mEq/L Carbon Dioxide 12 L (23-29) mEq/L BUN 20 (6-20) mg/dL Creatinine 1.00 (0.70-1.30) mg/dL Est GFR ( Amer) > 60 (> 60) Est GFR (Non-Af Amer) > 60 (> 60) BUN/Creatinine Ratio 20 (6-26) Glucose 509 H* (70-105) mg/dL Calculated Osmolality 285 (280-300) Calcium 10.0 (8.6-10.3) mg/dL Beta-Hydroxybutyric Acd > 2.00 H (0.02-0.27) mmol/L Urine Color (Yellow) Urine Clarity (Clear) Urine pH (5.0-8.0) pH Units Ur Specific [place] (1.010-1.025) Urine Protein (Neg-Trace) mg/dL Urine Glucose (UA) (Normal) mg/dL Urine Ketones (Negative) mg/dL Urine Blood (Negative) Urine Nitrite (Negative) Urine Bilirubin (Negative) Urine Urobilinogen (Normal) mg/dL Ur Leukocyte Esterase (Negative) Ur Culture Indicated? (NO) Person Notif of Crit 05/30/18 05/30/18 Range/Units 19:06 19:28 WBC (4.3-11.1) K/mcL RBC (4.19-5.50) M/mcL Hgb (12.9-16.9) g/dL Hct (37.5-50.1) % MCV (83.0-100.0) fL MCH (28.0-33.3) pg MCHC (31.6-35.5) g/dL RDW (11.5-14.5) % Plt Count (140-400) K/mcL MPV (9.4-12.4) fL Immature Gran % (0-4) % Seg Neutrophils % % Lymphocytes % % Monocytes % % Eosinophils % % Basophils % % Neutrophils # (1.6-8.9) K/mcL Lymphocytes # (0.6-4.6) K/mcL Monocytes # (0.0-1.3) K/mcL Eosinophils # (0.0-0.6) K/mcL Basophils # (0.0-0.2) K/mcL VBG pH 7.14 L* (7.32-7.42) pH Units VBG pCO2 38 L (41-51) mmHg VBG pO2 49 (25-50) mmHg VBG HCO3 13 L (21-27) mEq/L Sodium (136-145) mEq/L Potassium (3.5-5.1) mEq/L Chloride (98-107) mEq/L Carbon Dioxide (23-29) mEq/L BUN (6-20) mg/dL Creatinine (0.70-1.30) mg/dL Est GFR ( Amer) (> 60) Est GFR (Non-Af Amer) (> 60) BUN/Creatinine Ratio (6-26) Glucose (70-105) mg/dL Calculated Osmolality (280-300) Calcium (8.6-10.3) mg/dL Beta-Hydroxybutyric Acd (0.02-0.27) mmol/L Urine Color Yellow (Yellow) Urine Clarity Clear (Clear) Urine pH 5.0 (5.0-8.0) pH Units Ur Specific [place] 1.030 H (1.010-1.025) Urine Protein Negative (Neg-Trace) mg/dL Urine Glucose (UA) >=1000 H (Normal) mg/dL Urine Ketones >=160 H (Negative) mg/dL Urine Blood Negative (Negative) Urine Nitrite Negative (Negative) Urine Bilirubin Negative (Negative) Urine Urobilinogen Normal (Normal) mg/dL Ur Leukocyte Esterase Negative (Negative) Ur Culture Indicated? NO (NO) Person Notif of Joss dick - Radiology Data Radiology results reviewed: Yes I reviewed the patient's radiology results. Critical Care Time Critical Care Time: Yes Total Critical Care Time: 35 Attestation: Critical care time managing patient's DKA was 35 minutes. Attestation Statement - Attestation Attestation: Patient was seen with resident physician. I reviewed the history, physical, assessment and plan, and agree with the findings. I also personally evaluated this patient and had [id number] time with this patient. 48-year-old male presents emergency Department chief complaint of difficulty controlling glucose. Patient is a history of insulin-dependent diabetes. He is on insulin pump. He says he has a difficult time controlling it. He has not had numerous admissions for DKA. He said that his symptoms started with nausea polyuria and now he is had vomiting as well. He is tried to control his glucose by increasing his insulin pump, but he does not think he gave himself enough. His last glucose reading was over 400. Review of systems as above remainder reviewed negative. Physical exam vital signs are stable. ENT is unremarkable. Heart regular rhythm and rate. Lungs clear. Abdomen soft there is no tenderness. Extremities unremarkable. Neurologically intact. Skin no rashes. Psych normal. ED course we will do usual workup for DKA. We will treat the patient with fluids and nausea medication. Workup revealed that the patient was indeed in DKA. He will be given insulin, fluids, and we will contact the hospitalist service to arrange for admission. Hemodynamically otherwise she was stable. critical care time for this patient was 35 minutes.. I agree with resident physician assessment and plan.
[2018-05-30] MEDS ORDERED: Ondansetron 4 MG/2 ML VIAL IVP ONE (19:09)
[2018-05-30 19:13] LABS: Basophils % 0.5 %; Eosinophils % 0.4 %; Hematocrit 44.7 % (37.5-50.1); Hemoglobin 15.5 g/dL (12.9-16.9); Immature Granulocytes % 0.2 % (0-4); Lymphocytes # 1.9 K/mcL (0.6-4.6); Lymphocytes % 22.5 %; Mean Corpuscular HGB Conc 34.7 g/dL (31.6-35.5); Mean Corpuscular Hemoglobin 30.6 pg (28.0-33.3); Mean Corpuscular Volume 88.2 fL (83.0-100.0); Mean Platelet Volume 10.2 fL (9.4-12.4); Monocytes # 0.6 K/mcL (0.0-1.3); Monocytes % 6.4 %; Platelet Count 223 K/mcL (140-400); Red Blood Count 5.07 M/mcL (4.19-5.50)
[2018-05-30] MEDS ORDERED: Ondansetron 4 MG/2 ML VIAL IVP PRN (19:14)
[2018-05-30] MEDS ORDERED: Insulin Human Regular 100 UNIT in 0.9 % Sodium Chloride 100 ML IVC SCH (19:15)
[2018-05-30 19:18] LABS: VBG HCO3 13 mEq/L (21-27); VBG PCO2 38 mmHg (41-51); VBG PH 7.14 pH Units (7.32-7.42); VBG PO2 49 mmHg (25-50)
[2018-05-30 19:34] LABS: BUN/Creatinine Ratio 20 (6-26); Blood Urea Nitrogen 20 mg/dL (6-20); Carbon Dioxide 12 mEq/L (23-29); Chloride 90 mEq/L (98-107); Glucose 509 mg/dL (70-105); Osmolality,Calculated 285 (280-300); Potassium 5.2 mEq/L (3.5-5.1); Sodium 125 mEq/L (136-145); eGFR For Non-African Americans > 60 (> 60)
[2018-05-30 19:38] LABS: Bilirubin,Urine Negative (Negative); Blood,Urine Negative (Negative); Clarity,Urine Clear (Clear); Color,Urine Yellow (Yellow); Glucose,Urine (UA) >=1000 mg/dL (Normal); Ketones,Urine >=160 mg/dL (Negative); Leukocyte Esterase,Urine Negative (Negative); Nitrite,Urine Negative (Negative); Protein,Urine Negative (Neg-Trace); Urobilinogen,Urine Normal (Normal)
[2018-05-30] MEDS ORDERED: Insulin Human Regular 10 UNIT in 0.9 % Sodium Chloride 10 ML IV ONE (19:46)
[2018-05-30] MEDS ORDERED: D5% in 0.45% NACL 1,000 ML IVC PRN (20:16)
[2018-05-30] MEDS ORDERED: D5% in 0.45% NACL w KCl 20 MEQ/1,000 ML MLS IVC PRN (20:16)
--- NOTE | 2018-05-30 20:36 | Internal Med History&Physical ---
<Asya Oshea - Last Filed: 05/30/18 21:16> Date of Encounter: 05/30/18 Time of Encounter: 20:32 Internal Medicine - H&P: HPI Chief complaint: Elevated glucose Admitted From: Emergency Dept Plans for Post Hospital Care: Home History of present illness: Mr. Michel is a 48 year old male with past medical history of type I diabetes using an insulin pump and hyperlipidemia who presented to [facility] ED complaining of elevated glucose. The patient reported that last night at midnight he noted his glucose to be in the 600s. Around 3 in the morning he started feeling nauseous and fatigued. The symptoms continue to progress throughout the day especially the fatigue. He stated that he has been a DKA and hospitalized 3 times in 2018 so he wanted to come to the ED sooner rather than later. He denied any recent illness. He believes that he wore himself out yesterday in preparation for the snowstorm. He is had decreased appetite however he stated that he has had 5 cups of water today. He stated that he has been compliant with his insulin pump and has not taken it off. Additionally, he had chills. He denied fever, chest pain, change in vision, headache, shortness of breath, cough, abdominal pain, dysuria. He last saw his core laying machine operator last week at [facility]. He denied alcohol, drugs, tobacco use. He is a full code. In the ED, he was noted to have a glucose of 509. VBG pH 7.14, CO2 38, HCO3 13. Beta hydroxybutyric acid >2. Urinalysis demonstrating elevated glucose and ketones. In the ED he was given 2 L N.S IVF, insulin drip, Zofran. Past Med Surg Social Fam HX - Past Medical History Attestation: Yes The following information was validated with the patient. Source: patient Medical history: diabetes, hyperlipidemia, other Psychiatric history: no psych history - Past Surgical History Surgical History: other Additional surgical history: T&A, oral surgery - Social History Smoking Status: Never smoker Smokeless Tobacco Status: No Alcohol use: rarely Drug use: none - Family History Mother History Unknown: Yes Hx Family Autoimmune Disorders: Yes (RA) Father History Unknown: Yes Hx Family Endocrine Disorder: Yes Hx Family Autoimmune Disorders: Yes (Grave's disease) Internal Medicine - H&P: Meds Insulin LISPRO [HumaLOG] 8 units SQ TIDWM #2 vial 04/07/18 [Rx] Insulin DETEMIR [Levemir] 10 unit SQ HS #2 vial 04/12/18 [Rx] Allergy/AdvReac Type Severity Reaction Status Date / Time No Known Allergies Allergy Verified 04/09/18 17:43 All Systems PM: A 10-system review of systems was performed and is negative for pertinent findings except as documented above in the HPI. - Constitutional Constitutional: chills, fatigue, no fever(s), no weakness - EENT Eyes: no change in vision, no diplopia - Cardiovascular Cardiovascular ROS IM: no chest pain, no edema, no lightheadedness, no palpitations - Respiratory Respiratory: no cough, no dyspnea, no wheezing - Gastrointestinal Gastrointestinal: nausea, vomiting, no abdominal pain, no cramping, no diarrhea - Genitourinary Genitourinary ROS male: no difficulty urinating, no dysuria, no urinary frequency - Musculoskeletal Musculoskeletal ROS IM: no back pain, no muscle cramps - Integumentary Integumentary IM: no erythema, no new lesions - Neurological Neurological ROS: no dizziness, no headache(s), no loss of vision - Endocrine Endocrine IM: fatigue, flushing - Constitutional Vitals: Temp Pulse Resp BP Pulse Ox 97.5 F L 97 16 123/70 96 05/30/18 18:41 05/30/18 20:07 05/30/18 19:28 05/30/18 20:07 05/30/18 20:07 General appearance: Present: A&O X 3, pleasant, no acute distress Exam: Alert and oriented times 3 - Head Head exam: Present: atraumatic, normal inspection, normocephalic - Eye Eye exam: Present: normal appearance. Absent: scleral icterus - Respiratory Respiratory exam: Present: CTAB. Absent: rales, rhonchi, wheezes - Cardiovascular Cardiovascular exam: Present: RRR, +S1, +S2. Absent: systolic murmur - GI/Abdominal GI/Abdominal exam: Present: normal bowel sounds, soft. Absent: distended, guarding, tenderness - Extremities Exam Extremities exam: Present: normal inspection. Absent: pedal edema, tenderness - Back Exam Back exam: Present: normal inspection. Absent: rash noted, tenderness - Neurological Exam Neurological exam: Present: alert, oriented X3. Absent: pronater drift, facial droop, speech deficit - Psychiatric Psychiatric exam: Present: normal affect, normal mood - Skin Skin exam: Present: dry, intact Internal Med - H&P Results - Labs CBC & Chem 7: 05/30/18 18:56 05/30/18 18:56 Labs: Short CBC 05/30/18 Range/Units 18:56 WBC 8.5 (4.3-11.1) K/mcL Hgb 15.5 (12.9-16.9) g/dL Hct 44.7 (37.5-50.1) % Plt Count 223 (140-400) K/mcL Neutrophils # 6.0 (1.6-8.9) K/mcL BMP 05/30/18 18:56 Sodium 125 L Potassium 5.2 H Chloride 90 L Carbon Dioxide 12 L BUN 20 Creatinine 1.00 Glucose 509 H* Calcium 10.0 Urine 05/30/18 Range/Units 19:28 Urine Color Yellow (Yellow) Urine Clarity Clear (Clear) Urine pH 5.0 (5.0-8.0) pH Units Ur Specific [place] 1.030 H (1.010-1.025) Urine Protein Negative (Neg-Trace) mg/dL Urine Glucose (UA) >=1000 H (Normal) mg/dL - ABG Interpretation ABG results: 05/30/18 19:06 VBG pH 7.14 L* VBG pCO2 38 L VBG pO2 49 VBG HCO3 13 L - Impressions ITS Impressions Chest X-Ray 05/30/18 19:23 IMPRESSION: No acute cardiopulmonary disease. D/ / Darek Katz MD / Darek Katz MD Interpreting Provider: Darek Katz MD - Assessment and plan (1) DKA (diabetic ketoacidoses) Current Visit: No Status: Resolved Assessment and plan: 48 young male with a past medical history of type I diabetes using an insulin pump. He reports other hospitalizations for DKA. His core laying machine operator is that [facility]. Admitted for diabetic ketoacidosis. Reported glucose as high as 600s at home. At admission glucose of 509. In the ED he was given 2 L N.S IVF, insulin drip, Zofran. He is not on a statin medication by choice, he used to take one however he took himself off it. He believes that he wore himself out yesterday in preparation for the snowstorm. Denies recent illness or feeling ill. High anion Metabolic acidosis on 23 VBG pH 7.14, CO2 38, HCO3 13 Beta hydroxybutyric acid >2 afebrile, WBC WNL, hemodynamically stable Urinalysis demonstrating elevated glucose and ketones chest x-ray demonstrating no acute cardiopulmonary process Plan: -continue with IV fluid resuscitation -continue on insulin drip -continue to monitor BMP q2H, will wait for gap to close then start basal insulin -will continue to closely monitor potassium and supplement as needed -NPO -close glucose monitoring -patient will likely need to follow up with his core laying machine operator outpatient upon discharge -patient was counseled on the importance of taking a statin. Qualifiers: Diabetes mellitus type: type 1 Diabetes mellitus complication detail: without coma Qualified Code(s): E10.10 - Type 1 diabetes mellitus with ketoacidosis without coma (2) High anion gap metabolic acidosis Current Visit: No Status: Acute Assessment and plan: High anion gap metabolic acidosis secondary to DKA. Anion gap 23 VBG pH 7.14, CO2 38, HCO3 13 -Will continue his treatment of diabetic ketoacidosis (3) Hyponatremia Current Visit: Yes Status: Acute Assessment and plan: Hyponatremia. Corrected sodium in setting of hyperglycemia is 131. Likely secondary to dehydration due to DKA. -Will continue with IV fluid resuscitation -will continue to monitor BMP (4) Nausea & vomiting Current Visit: Yes Status: Acute Assessment and plan: Nausea and vomiting likely secondary to DKA. -Zofran ordered as needed -NPO Qualifiers: Vomiting type: unspecified Qualified Code(s): R11.2 - Nausea with vomiting, unspecified (5) Type I diabetes mellitus Current Visit: No Status: Chronic Assessment and plan: Patient is a type I diabetic using an insulin pump. Follows with an core laying machine operator at [facility]. Most recent appointment was last week. Qualifiers: Diabetes mellitus complication status: with ketoacidosis Diabetes mellitus complication detail: without coma Qualified Code(s): E10.10 - Type 1 diabetes mellitus with ketoacidosis without coma (6) DVT prophylaxis Current Visit: No Status: Resolved Assessment and plan: Heparin SQ - Time Spent With Patient Total time spent is greater than 50% in coordination of care (as documented) at patient's floor/unit and/or counseling patient: <Kimmy Tubbs A - Last Filed: 05/31/18 05:56> Date of Encounter: 05/30/18 Internal Medicine - H&P: HPI History of present illness: Mr. Michel is a 48 year old male All Systems PM: A 10-system review of systems was performed and is negative for pertinent findings except as documented above in the HPI. - Constitutional Vitals: Temp Pulse Resp BP Pulse Ox 97.8 F 88 18 104/68 97 05/31/18 04:00 05/31/18 05:00 05/31/18 05:00 05/31/18 05:00 05/31/18 05:00 Internal Med - H&P Results - Labs CBC & Chem 7: 05/31/18 02:56 05/31/18 02:56 Labs: Short CBC 05/30/18 05/31/18 Range/Units 18:56 02:56 WBC 8.5 7.8 (4.3-11.1) K/mcL Hgb 15.5 13.0 D (12.9-16.9) g/dL Hct 44.7 37.3 L (37.5-50.1) % Plt Count 223 182 (140-400) K/mcL Neutrophils # 6.0 5.1 (1.6-8.9) K/mcL BMP 05/30/18 05/30/18 05/30/18 18:56 20:53 23:02 Sodium 125 L 127 L 130 L Potassium 5.2 H 6.0 H 4.3 D Chloride 90 L 97 L 103 Carbon Dioxide 12 L 11 L 12 L BUN 20 20 19 Creatinine 1.00 0.87 0.82 Glucose 509 H* 425 H 290 H Calcium 10.0 8.9 8.6 05/31/18 05/31/18 00:58 02:56 Sodium 132 L 132 L Potassium 4.4 4.3 Chloride 105 108 H Carbon Dioxide 17 L 19 L BUN 17 15 Creatinine 0.88 0.80 Glucose 212 H 213 H Calcium 8.6 8.6 Urine 05/30/18 Range/Units 19:28 Urine Color Yellow (Yellow) Urine Clarity Clear (Clear) Urine pH 5.0 (5.0-8.0) pH Units Ur Specific [place] 1.030 H (1.010-1.025) Urine Protein Negative (Neg-Trace) mg/dL Urine Glucose (UA) >=1000 H (Normal) mg/dL - ABG Interpretation ABG results: 05/30/18 05/31/18 19:06 03:08 VBG pH 7.14 L* 7.32 VBG pCO2 38 L 37 L VBG pO2 49 113 H VBG HCO3 13 L 19 L - Impressions ITS Impressions Chest X-Ray 05/30/18 19:23 IMPRESSION: No acute cardiopulmonary disease. D/ / Darek Katz MD / Darek Katz MD Interpreting Provider: Darek Katz MD - Time Spent With Patient Total time spent is greater than 50% in coordination of care (as documented) at patient's floor/unit and/or counseling patient: - Attending Attestation I performed a history and physical examination of the patient and discussed his management with the resident. I reviewed the resident's note and agree with the assessment and plan of care. Patient is a 48-year-old male with a past medical history of type 1 diabetes found to be in DKA. No precipitating event. We will admit to ICU and started on DKA protocol.
[2018-05-30] MEDS: *HR* Heparin 5,000 UNIT/ML VIAL SQ SCH (21:09)
[2018-05-30] MEDS: 0.9 % Sodium Chloride w KCl 20 MEQ/1,000 ML MLS IVC SCH ×2 (21:17→22:07)
[2018-05-30] MEDS: 0.45 % Sodium Chloride w/KCl 20 MEQ/1,000 ML MLS IVC SCH ×2 (21:18→22:06)
[2018-05-30 21:22] LABS: BUN/Creatinine Ratio 23 (6-26); Blood Urea Nitrogen 20 mg/dL (6-20); Calcium 8.9 mg/dL (8.6-10.3); Carbon Dioxide 11 mEq/L (23-29); Chloride 97 mEq/L (98-107); Glucose 425 mg/dL (70-105); Osmolality,Calculated 285 (280-300); Sodium 127 mEq/L (136-145); eGFR For Non-African Americans > 60 (> 60)
[2018-05-30] MEDS ORDERED: Naloxone 0.4 MG/ML INJ IVP PRN (22:17)
[2018-05-30 23:37] LABS: BUN/Creatinine Ratio 23 (6-26); Blood Urea Nitrogen 19 mg/dL (6-20); Calcium 8.6 mg/dL (8.6-10.3); Carbon Dioxide 12 mEq/L (23-29); Chloride 103 mEq/L (98-107); Glucose 290 mg/dL (70-105); Osmolality,Calculated 283 (280-300); Potassium 4.3 mEq/L (3.5-5.1); Sodium 130 mEq/L (136-145); eGFR For Non-African Americans > 60 (> 60)
[2018-05-31] MEDS: 0.9 % Sodium Chloride w KCl 20 MEQ/1,000 ML MLS IVC SCH ×6 (01:01→08:09)
[2018-05-31] MEDS: 0.45 % Sodium Chloride w/KCl 20 MEQ/1,000 ML MLS IVC SCH ×6 (01:02→08:09)
[2018-05-31] MEDS: 0.9 % Sodium Chloride 1,000 ML IVC SCH ×3 (01:04→07:24)
[2018-05-31 01:26] LABS: BUN/Creatinine Ratio 19 (6-26); Blood Urea Nitrogen 17 mg/dL (6-20); Calcium 8.6 mg/dL (8.6-10.3); Carbon Dioxide 17 mEq/L (23-29); Chloride 105 mEq/L (98-107); Glucose 212 mg/dL (70-105); Osmolality,Calculated 282 (280-300); Potassium 4.4 mEq/L (3.5-5.1); Sodium 132 mEq/L (136-145); eGFR For Non-African Americans > 60 (> 60)
[2018-05-31 03:06] LABS: Basophils % 0.4 %; Eosinophils % 0.5 %; Hematocrit 37.3 % (37.5-50.1); Immature Granulocytes % 0.1 % (0-4); Mean Corpuscular HGB Conc 34.9 g/dL (31.6-35.5); Mean Corpuscular Volume 86.1 fL (83.0-100.0); Mean Platelet Volume 9.4 fL (9.4-12.4); Monocytes # 0.7 K/mcL (0.0-1.3); Monocytes % 8.5 %; Neutrophils # 5.1 K/mcL (1.6-8.9); Platelet Count 182 K/mcL (140-400); Red Blood Count 4.33 M/mcL (4.19-5.50); Segmented Neutrophils % 65.5 %
[2018-05-31 03:12] LABS: VBG HCO3 19 mEq/L (21-27); VBG PCO2 37 mmHg (41-51); VBG PH 7.32 pH Units (7.32-7.42); VBG PO2 113 mmHg (25-50)
[2018-05-31 03:25] LABS: BUN/Creatinine Ratio 19 (6-26); Blood Urea Nitrogen 15 mg/dL (6-20); Calcium 8.6 mg/dL (8.6-10.3); Carbon Dioxide 19 mEq/L (23-29); Chloride 108 mEq/L (98-107); Glucose 213 mg/dL (70-105); Magnesium 1.9 mg/dL (1.6-2.6); Osmolality,Calculated 281 (280-300); Potassium 4.3 mEq/L (3.5-5.1); Sodium 132 mEq/L (136-145); eGFR For Non-African Americans > 60 (> 60)
[2018-05-31] MEDS ORDERED: Insulin DETEMIR 100 UNIT/ML X5UNITS SQ SCH (03:30)
[2018-05-31] MEDS: *HR* Heparin 5,000 UNIT/ML VIAL SQ SCH ×2 (05:00→13:32)
[2018-05-31] MEDS: Insulin LISPRO 300 UNITS/3 ML VIAL SQ SCH ×4 (07:23→11:53)
[2018-05-31] MEDS ORDERED: Dextrose Gel 15 GM/37.5 ML TUBE PO PRN ×2 (09:04)
[2018-05-31] MEDS ORDERED: *HR* Dextrose 50 % in Water (Syg) 50 ML SYRINGE IVP PRN (09:04)
[2018-05-31] MEDS ORDERED: D5% in Water 1,000 ML IVC PRN (09:04)
[2018-05-31 09:14] LABS: Estimated Average Glucose 295 mg/dl; Hemoglobin A1C 11.9 %
--- NOTE | 2018-05-31 10:33 | Internal Med Progress Note ---
Hospitalist Progress Note - Encounter Date of Encounter: 05/31/18 - Exam Vitals: Temp Pulse Resp BP Pulse Ox 97.3 F L 86 16 95/61 96 05/31/18 07:11 05/31/18 07:20 05/31/18 07:00 05/31/18 07:00 05/31/18 07:00 - Time Spent with Patient Total time spent is greater than 50% in coordination of care (as documented) at patient's floor/unit and/or counseling patient: Internal Medicine: Result - Labs CBC & Chem 7: 05/31/18 02:56 05/31/18 02:56 Labs: Short CBC 05/30/18 05/31/18 Range/Units 18:56 02:56 WBC 8.5 7.8 (4.3-11.1) K/mcL Hgb 15.5 13.0 D (12.9-16.9) g/dL Hct 44.7 37.3 L (37.5-50.1) % Plt Count 223 182 (140-400) K/mcL Neutrophils # 6.0 5.1 (1.6-8.9) K/mcL BMP 05/30/18 05/30/18 05/30/18 18:56 20:53 23:02 Sodium 125 L 127 L 130 L Potassium 5.2 H 6.0 H 4.3 D Chloride 90 L 97 L 103 Carbon Dioxide 12 L 11 L 12 L BUN 20 20 19 Creatinine 1.00 0.87 0.82 Glucose 509 H* 425 H 290 H Calcium 10.0 8.9 8.6 05/31/18 05/31/18 00:58 02:56 Sodium 132 L 132 L Potassium 4.4 4.3 Chloride 105 108 H Carbon Dioxide 17 L 19 L BUN 17 15 Creatinine 0.88 0.80 Glucose 212 H 213 H Calcium 8.6 8.6 Urine 05/30/18 Range/Units 19:28 Urine Color Yellow (Yellow) Urine Clarity Clear (Clear) Urine pH 5.0 (5.0-8.0) pH Units Ur Specific [place] 1.030 H (1.010-1.025) Urine Protein Negative (Neg-Trace) mg/dL Urine Glucose (UA) >=1000 H (Normal) mg/dL - Impressions Impressions Chest X-Ray 05/30/18 19:23 IMPRESSION: No acute cardiopulmonary disease. D/ / Darek Katz MD / Darek Katz MD Interpreting Provider: Darek Katz MD Consult Discharge Plan - Plan Referrals: NONE,PCP [Primary Care Provider] -
[2018-05-31 12:04] VITALS: BP 124/88
--- NOTE | 2018-05-31 14:44 | Discharge Summary ---
- NOTES TO OUTPATIENT PROVIDER Notes to Outpatient Provider: Patient will need close follow up for Diabetes management with insulin pump and education. Consider starting patien on statin if not already. Date of Encounter: 05/31/18 Time of Encounter: 14:39 - Discharge Diagnosis (1) Diabetic keto-acidosis Priority: Primary Status: Acute Qualifiers: Diabetes mellitus type: type 1 Diabetes mellitus complication detail: without coma Qualified Code(s): E10.10 - Type 1 diabetes mellitus with ketoacidosis without coma (2) DVT prophylaxis Priority: Secondary Status: Resolved (3) High anion gap metabolic acidosis Priority: Primary Status: Acute Hospital course: Mr. Michel is a 48 year old male with past medical history of type 1 diabetes on insulin pump came in with complain of significantly elevated blood pressure, nausea and fatigue. Patient was found to have DKA based on ABG and BMP without any Acidosis and ketones pneumonia and hypoglycemia. Patient was started on insulin drip and IV fluids with potassium supplementation. Patient had a gap closed quickly and was bridged to subcutaneous insulin with 15 units. Patient felt well and wanted to go home. He tolerated diet well without nausea or vomiting. After confirming that the patient who felt that he understands how to use insulin pump I decided to discharge patient home to follow closely with PCP and endocrinology. Patient understands he needs to use boluses on top of basal rate of insulin. Patient's last A1c is around 11 and discussed with patient about good control of diabetes. Patient agrees to follow with PCP and endocrinology. Discharge discussed with: patient, nurse - Time Spent with Patient Total time spent providing and/or coordinating discharge services: Greater than 30 minutes (38) - Discharge Medications Allergies/Adverse Reactions: Allergy/AdvReac Type Severity Reaction Status Date / Time No Known Allergies Allergy Verified 04/09/18 17:43 Date of admission: 05/30/18 19:58 Primary care physician: PCP NONE Discharging clinician: Raven Araujo - Constitutional Vitals: Temp Pulse Resp BP Pulse Ox 98.3 F 73 18 124/88 96 05/31/18 11:21 05/31/18 12:00 05/31/18 12:00 05/31/18 12:00 05/31/18 12:00 Exam: General: In no acute distress. Conversant. anxious. Respiratory exam: CTAB. no accessory muscle use, rales, rhonchi, wheezes Cardiovascular exam: RRR, +S1, +S2. no murmur, gallop, rubs. GI/Abdominal exam: Non-tender, Non-distended, normal bowel sounds, soft, no peritoneal signs. Extremities exam: full ROM, no pedal edema, warm, pulses palpable in b/l lower extremities. no calf tenderness Neurological exam: CN II-XII intact, AO X3, no focal deficits. no pronater drift, facial droop, speech deficit Skin exam: No skin rash, ulcer, purpura or ecchymosis. - Patient Status Disposition: Home, Self-Care Condition: Fair - Discharge Instructions Follow Up With: NONE,PCP [Primary Care Provider] - - Diet and Activity Activity: increase activity as tolerated
[2018-05-31] MEDS ORDERED: Insulin LISPRO 300 UNITS/3 ML VIAL SQ SCH (21:00)
--- NOTE | 2018-06-01 17:24 | Electrocardiograph Report ---
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
== END 2018-05-31 15:30 | disposition home or self-care (01) ==
LOC: EMEROOARM 18:31 → ICNU 18:31
PROVIDERS: ADMIT Internal Medicine; ATTEND Internal Medicine

== ENCOUNTER 2018-06-02 03:56 | Inpatient (IN) ==
[2018-06-02] MEDS ORDERED: 0.9 % Sodium Chloride 1,000 ML IVC ONE (04:18)
--- NOTE | 2018-06-02 04:23 | Emergency Department Note ---
Disposition Clinical Impression: Hyponatremia Nausea & vomiting Qualifiers: Vomiting type: unspecified Vomiting Intractability: unspecified Qualified Code( s): R11.2 - Nausea with vomiting, unspecified DKA, type 1 Qualifiers: Diabetes mellitus complication detail: without coma Qualified Code(s): E10.10 - Type 1 diabetes mellitus with ketoacidosis without coma Disposition: Admitted As Inpatient Condition: Fair Referrals: Jenaro Doherty MD [Primary Care Provider] - Forms: Work/School Release, ED Satisfaction Letter General Adult HPI - General Chief complaint: ED General Medical Stated complaint: "DKA" Time Seen by Provider: 06/02/18 03:59 Source: patient Mode of arrival: private vehicle Limitations: no limitations Nursing Notes Reviewed: Yes Vital Signs Reviewed: Yes - History of Present Illness HPI Narrative: 48-year-old male history type 1 diabetes presents to emergency department for evaluation of possible DKA. Patient states he was here on 06/02 05/31 for DKA, he states he felt considerably better so he was released from the hospital on 05/31. Patient states until about 11:30 yesterday morning he felt fine, but 11:30 AM on 06/01 patient started to "feel bad" with general feelings of unwell, increased urination and thirsty. Patient states he checked his sugar throughout the day and it was greater than 600, gave himself his last bolus around 1800. Patient states that 30 minutes prior to arrival he did have one episode of emesis. Patient states he has had approximately 20 units bolused throughout the day, he gets 0.6 as his basal rate. Patient claims that this general unwellness. He denies feeling feverish, he does not think he is getting sick or that he is sick. He does deny abdominal pain, nausea. He states than the one episode of emesis he has not had any further abdominal complaints. Patient states he put a new cartridge in his pump today, he states he is getting insulin and after 1 the boluses at 6 PM he was able to get his sugar down to 4 89. He states the cartridge is new from today and the problem seems to be working appropriately. Patient states he has not been since about noon. He states he had to "good home-cooked meals" though he would not detail the meals or food intake. Onset (ago): hour(s) Pain Scale: 0 Improves with: medication Associated symptoms: Reports: loss of appetite, malaise, nausea/vomiting. Denies: confusion, chest pain, cough, diaphoresis, fever/chills, headaches, rash, seizure, shortness of breath, syncope, weakness Treatments Prior to Arrival: other - Related Data Home Medications Medication Instructions Recorded Confirmed Insulin Pump Cartridge [Insulin 06/02/18 Pump] Allergies Allergy/AdvReac Type Severity Reaction Status Date / Time No Known Allergies Allergy Verified 06/02/18 04:03 All systems ED: reviewed and negative except as stated. Review of Systems: As Per HPI Constitutional: Denies: fever, chills, night sweats Eyes: Denies: vision change ENT ED: Denies: throat pain, congestion Cardiovascular: Denies: chest pain, palpitations Respiratory: Denies: cough, wheezes Gastrointestinal: Reports: nausea, vomiting. Denies: abdominal pain, diarrhea, constipation Genitourinary: Reports: urgency, frequency Integumentary: Denies: rash Endocrine: Reports: polydipsia, polyuria Past Medical History - Past Medical History Attestation: Yes The following information was validated with the patient. Source: patient Medical history: Reports: diabetes, hyperlipidemia, other Surgical history: Reports: other Psychiatric history: Reports: no psych history - Social History Smoking Status: Never smoker Smokeless Tobacco Status: No Alcohol use: Reports: rarely Drug use: Reports: none Physical Exam - General Limitations: no limitations General appearance: alert, in no apparent distress - Head Head exam: atraumatic, normocephalic, normal inspection - Eye Eye exam: Present: normal appearance - ENT ENT exam: mucous membranes dry - Neck Neck exam: Present: normal inspection, full ROM, trachea midline. Absent: tenderness, lymphadenopathy - Chest Chest inspection: Present: normal inspection, symmetric chest wall rise - Respiratory Respiratory exam: Present: normal lung sounds bilaterally - Cardiovascular Cardiovascular exam: Present: regular rate, normal rhythm, normal heart sounds - Abdominal Exam Abdominal exam: Present: soft, Non-Tender, normal bowel sounds - Extremities Exam Extremities exam: Present: normal inspection, full ROM. Absent: tenderness, pedal edema - Back Exam Back exam: Present: normal inspection, full ROM. Absent: tenderness - Neurological Exam Neurological exam: Present: alert, oriented X3 - Psychiatric Psychiatric exam: Present: flat affect - Skin Skin exam: Present: warm, dry, intact, normal color Course Course Narrative: Well-developed male in no acute distress. Respirations are easy and even. Patient arrives afebrile, nontoxic tachycardic, nontachypneic. He is normotensive. Physical exam is benign. Patient unhooked his insulin pump, went through the daily total, patient has had 21 units of bolus insulin, he does have blood sugars since noon ranging in the 400s to 600. Patient was getting boluses such as 2 units, 2.1 units, 6 units throughout the day. Patient did change cartridge today verified by the insulin pump. This is patient's fifth visit to the emergency department and his had 4 prior admissions for DKA since 03/30/18. Patient states he has an appointment with his restorative coordinator at 9 AM in the morning. Accu-Chek upon arrival to the emergency department is 387. Patient has been made nothing by mouth, we will initiate bolus after labs are drawn, give antinausea medicine and evaluate - Reevaluation(s) Reevaluation #1: Patient resting quietly, he is exerting had 1 L fluid bolus, we will continue to resuscitate with fluids. VBG return to the pH is 7.17, bicarbonate 11. Sodium 1:30, corrective for hyperglycemia is 136, glucose 461, potassium 4.9. BHA >2.00. Urinalysis with positive keytonuria. Patient with an anion gap 24. He does meet criteria for diabetic ketoacidosis, he has continued fluid resuscitation, will not need to supplement potassium at this time with a 4.9. We will initially insulin drip at 0.1 units kilogram an hour and plan admission. We will get an EKG, chest x-ray for admission processes. Patient is agreeable to plan of care. Time: 05:12 Reevaluation #2: Patient resting quietly. CXR returns unremarkeable. EKG completed with a sinus rhythm with a ventricular rate of 95 bpm, NV interval her 60 ms, QTC 433 ms, there is slight [address] elevation in V2, repeat EKG with lessened ST elevation with proper placement however it is still there compared to previous EKG. noncontiguous, patient without chest pain, no cardiac history. Troponin drawn and returns negative. ST elevation in 1 lead, no other leads identified. No cardiac symptomology. I spoke with hospitalist Dr. Ku who is agreeable with admission. Time: 05:44 Vital Signs Temperature 97.6 F 06/02/18 04:00 Pulse Rate 95 06/02/18 04:00 Respiratory Rate 18 06/02/18 04:00 Blood Pressure 119/71 06/02/18 04:00 O2 Sat by Pulse Oximetry 100 06/02/18 04:00 Temperature 97.6 F 06/02/18 04:00 Pulse Rate 96 06/02/18 05:15 Respiratory Rate 20 06/02/18 05:15 Blood Pressure 126/80 06/02/18 05:15 O2 Sat by Pulse Oximetry 100 06/02/18 05:15 Oxygen Delivery Oxygen Delivery Room Air Medical Decision Making - Differential Diagnosis DKA, HHS, hyperglycemia - Medical Records Medical records reviewed: Yes I reviewed the patient's medical records. - Lab Data Lab results reviewed: Yes I reviewed the patient's lab results. Result diagrams: 06/02/18 04:20 06/02/18 04:21 Lab Results 06/02/18 06/02/18 06/02/18 Range/Units 04:20 04:21 04:21 WBC 8.1 (4.3-11.1) K/mcL RBC 4.94 (4.19-5.50) M/mcL Hgb 15.0 D (12.9-16.9) g/dL Hct 44.3 (37.5-50.1) % MCV 89.7 (83.0-100.0) fL MCH 30.4 (28.0-33.3) pg MCHC 33.9 (31.6-35.5) g/dL RDW 12.3 (11.5-14.5) % Plt Count 212 (140-400) K/mcL MPV 9.9 (9.4-12.4) fL Immature Gran % 0.2 (0-4) % Seg Neutrophils % 47.3 % Lymphocytes % 44.4 % Monocytes % 6.8 % Eosinophils % 0.7 % Basophils % 0.6 % Neutrophils # 3.8 (1.6-8.9) K/mcL Lymphocytes # 3.6 (0.6-4.6) K/mcL Monocytes # 0.6 (0.0-1.3) K/mcL Eosinophils # 0.1 (0.0-0.6) K/mcL Basophils # 0.1 (0.0-0.2) K/mcL VBG pH (7.32-7.42) pH Units VBG pCO2 (41-51) mmHg VBG pO2 (25-50) mmHg VBG HCO3 (21-27) mEq/L Sodium 130 L (136-145) mEq/L Potassium 4.9 (3.5-5.1) mEq/L Chloride 95 L (98-107) mEq/L Carbon Dioxide 9 L* (23-29) mEq/L BUN 18 (6-20) mg/dL Creatinine 0.93 (0.70-1.30) mg/dL Est GFR ( Amer) > 60 (> 60) Est GFR (Non-Af Amer) > 60 (> 60) BUN/Creatinine Ratio 19 (6-26) Glucose 461 H (70-105) mg/dL Calculated Osmolality 292 (280-300) Calcium 9.7 (8.6-10.3) mg/dL Total Bilirubin 0.7 (0.3-1.0) mg/dL AST 16 (13-39) Units/L ALT 20 (7-52) Units/L Alkaline Phosphatase 81 (34-104) Units/L Troponin I < 0.03 (< 0.04) ng/mL Serum Total Protein 8.1 (6.4-8.9) g/dL Albumin 4.8 (3.5-5.7) g/dL Globulin 3.3 (2.4-3.5) g/dL Albumin/Globulin Ratio 1.5 (1.1-2.2) Beta-Hydroxybutyric Acd > 2.00 H (0.02-0.27) mmol/L Ur Specimen Adequacy Urine Color (Yellow) Urine Clarity (Clear) Urine pH (5.0-8.0) pH Units Ur Specific [place] (1.010-1.025) Urine Protein (Neg-Trace) mg/dL Urine Glucose (UA) (Normal) mg/dL Urine Ketones (Negative) mg/dL Urine Blood (Negative) Urine Nitrite (Negative) Urine Bilirubin (Negative) Urine Urobilinogen (Normal) mg/dL Ur Leukocyte Esterase (Negative) Urine Microscopic RBC (0-3) per hpf Urine Microscopic WBC (0-3) per hpf Ur Squamous Epith Cells (None-Few) per lpf Urine Bacteria (None-Few) per hpf Ur Culture Indicated? (NO) Person Notif of Crit 06/02/18 06/02/18 Range/Units 04:30 04:36 WBC (4.3-11.1) K/mcL RBC (4.19-5.50) M/mcL Hgb (12.9-16.9) g/dL Hct (37.5-50.1) % MCV (83.0-100.0) fL MCH (28.0-33.3) pg MCHC (31.6-35.5) g/dL RDW (11.5-14.5) % Plt Count (140-400) K/mcL MPV (9.4-12.4) fL Immature Gran % (0-4) % Seg Neutrophils % % Lymphocytes % % Monocytes % % Eosinophils % % Basophils % % Neutrophils # (1.6-8.9) K/mcL Lymphocytes # (0.6-4.6) K/mcL Monocytes # (0.0-1.3) K/mcL Eosinophils # (0.0-0.6) K/mcL Basophils # (0.0-0.2) K/mcL VBG pH 7.18 L* (7.32-7.42) pH Units VBG pCO2 30 L (41-51) mmHg VBG pO2 68 H (25-50) mmHg VBG HCO3 11 L (21-27) mEq/L Sodium (136-145) mEq/L Potassium (3.5-5.1) mEq/L Chloride (98-107) mEq/L Carbon Dioxide (23-29) mEq/L BUN (6-20) mg/dL Creatinine (0.70-1.30) mg/dL Est GFR ( Amer) (> 60) Est GFR (Non-Af Amer) (> 60) BUN/Creatinine Ratio (6-26) Glucose (70-105) mg/dL Calculated Osmolality (280-300) Calcium (8.6-10.3) mg/dL Total Bilirubin (0.3-1.0) mg/dL AST (13-39) Units/L ALT (7-52) Units/L Alkaline Phosphatase (34-104) Units/L Troponin I (< 0.04) ng/mL Serum Total Protein (6.4-8.9) g/dL Albumin (3.5-5.7) g/dL Globulin (2.4-3.5) g/dL Albumin/Globulin Ratio (1.1-2.2) Beta-Hydroxybutyric Acd (0.02-0.27) mmol/L Ur Specimen Adequacy See below A Urine Color Yellow (Yellow) Urine Clarity Clear (Clear) Urine pH 5.0 (5.0-8.0) pH Units Ur Specific [place] > 1.030 H (1.010-1.025) Urine Protein Trace (Neg-Trace) mg/dL Urine Glucose (UA) >=1000 H (Normal) mg/dL Urine Ketones >=160 H (Negative) mg/dL Urine Blood Negative (Negative) Urine Nitrite Negative (Negative) Urine Bilirubin Negative (Negative) Urine Urobilinogen Normal (Normal) mg/dL Ur Leukocyte Esterase Negative (Negative) Urine Microscopic RBC 0-3 (0-3) per hpf Urine Microscopic WBC 0-3 (0-3) per hpf Ur Squamous Epith Cells Few (None-Few) per lpf Urine Bacteria Few (None-Few) per hpf Ur Culture Indicated? NO (NO) Person Notif of Joss Dietz - Radiology Data Radiology results reviewed: Yes I reviewed the patient's radiology results. - EKG Data EKG #1 EKG attestation: Yes I reviewed and interpreted this EKG. EKG shows normal: sinus rhythm Rate: normal Rhythm: NSR Interpretation: no acute changes Attestation Statement - Attestation Attestation: I, Travon Salvador DO have provided [id number] time during the care of this patient. Detailed review the presentation, symptoms, medical history were discussed and reviewed with the advanced practice provider Shagufta Mo/[employer]. Medical intervention labs and imaging studies were reviewed in detail. See full documentation of physical exam and course of care in the advanced practice provider's note. I agree with the determined course of care, medical intervention and disposition put forth by the advanced practice provider. See below documentation for changes or alterations in documentation.
[2018-06-02] MEDS ORDERED: Ondansetron ODT 4 MG TAB.RAPDIS SL ONE (04:28)
[2018-06-02 04:42] LABS: VBG HCO3 11 mEq/L (21-27); VBG PCO2 30 mmHg (41-51); VBG PH 7.18 pH Units (7.32-7.42); VBG PO2 68 mmHg (25-50)
[2018-06-02 04:46] LABS: Bilirubin,Urine Negative (Negative); Blood,Urine Negative (Negative); Clarity,Urine Clear (Clear); Color,Urine Yellow (Yellow); Glucose,Urine (UA) >=1000 mg/dL (Normal); Ketones,Urine >=160 mg/dL (Negative); Leukocyte Esterase,Urine Negative (Negative); Nitrite,Urine Negative (Negative); Protein,Urine Trace mg/dL (Neg-Trace); Specific Gravity,Urine > 1.030 (1.010-1.025); Urobilinogen,Urine Normal (Normal)
[2018-06-02 04:48] LABS: Bacteria,Urine Few per hpf (None-Few); RBC,Urine 0-3 per hpf (0-3); Squamous Epithelial Cell,Urine Few per lpf (None-Few); WBC,Urine 0-3 per hpf (0-3)
[2018-06-02] MEDS ORDERED: 0.9 % Sodium Chloride 1,000 ML IVC SCH (05:00)
[2018-06-02 05:02] LABS: Alanine Aminotransferase 20 Units/L (7-52); Albumin 4.8 g/dL (3.5-5.7); Albumin/Globulin Ratio 1.5 (1.1-2.2); Alkaline Phosphatase 81 Units/L (34-104); Aspartate Amino Transferase 16 Units/L (13-39); BUN/Creatinine Ratio 19 (6-26); Bilirubin,Total 0.7 mg/dL (0.3-1.0); Blood Urea Nitrogen 18 mg/dL (6-20); Calcium 9.7 mg/dL (8.6-10.3); Carbon Dioxide 9 mEq/L (23-29); Chloride 95 mEq/L (98-107); Globulin 3.3 g/dL (2.4-3.5); Glucose 461 mg/dL (70-105); Osmolality,Calculated 292 (280-300); Potassium 4.9 mEq/L (3.5-5.1); Sodium 130 mEq/L (136-145); Total Protein 8.1 g/dL (6.4-8.9); eGFR For Non-African Americans > 60 (> 60)
[2018-06-02] MEDS ORDERED: *HR* Dextrose 50 % in Water (Syg) 50 ML SYRINGE IVP PRN ×4 (05:05→13:57)
--- NOTE | 2018-06-02 05:08 | Emergency Department Note ---
Disposition Clinical Impression: Hyponatremia Nausea & vomiting Qualifiers: Vomiting type: unspecified Vomiting Intractability: unspecified Qualified Code( s): R11.2 - Nausea with vomiting, unspecified DKA, type 1 Qualifiers: Diabetes mellitus complication detail: without coma Qualified Code(s): E10.10 - Type 1 diabetes mellitus with ketoacidosis without coma Disposition: Admitted As Inpatient Condition: Fair Referrals: Jenaro Doherty MD [Primary Care Provider] - Forms: ED Satisfaction Letter, Work/School Release Time of Disposition: 05:48 General Adult HPI - General Chief complaint: ED General Medical Stated complaint: "DKA" Time Seen by Provider: 06/02/18 03:59 Source: patient Mode of arrival: private vehicle Limitations: no limitations - History of Present Illness Pain Scale: 0 Improves with: medication Associated symptoms: Reports: loss of appetite, malaise, nausea/vomiting. Denies: confusion, chest pain, cough, diaphoresis, fever/chills, headaches, rash, seizure, shortness of breath, syncope, weakness Treatments Prior to Arrival: other - Related Data Home Medications Medication Instructions Recorded Confirmed Insulin Pump Cartridge [Insulin 06/02/18 Pump] Allergies Allergy/AdvReac Type Severity Reaction Status Date / Time No Known Allergies Allergy Verified 06/02/18 04:03 Constitutional: Denies: fever, chills, night sweats Eyes: Denies: vision change ENT ED: Denies: throat pain, congestion Cardiovascular: Denies: chest pain, palpitations Respiratory: Denies: cough, wheezes Gastrointestinal: Reports: nausea, vomiting. Denies: abdominal pain, diarrhea, constipation Genitourinary: Reports: urgency, frequency Integumentary: Denies: rash Endocrine: Reports: polydipsia, polyuria Past Medical History - Past Medical History Medical history: Reports: diabetes, hyperlipidemia, other Surgical history: Reports: other Psychiatric history: Reports: no psych history - Social History Smoking Status: Never smoker Smokeless Tobacco Status: No Alcohol use: Reports: rarely Drug use: Reports: none Physical Exam - General Limitations: no limitations General appearance: alert, in no apparent distress Course Vital Signs Temperature 97.6 F 06/02/18 04:00 Pulse Rate 95 06/02/18 04:00 Respiratory Rate 18 06/02/18 04:00 Blood Pressure 119/71 06/02/18 04:00 O2 Sat by Pulse Oximetry 100 06/02/18 04:00 Temperature 97.6 F 06/02/18 04:00 Pulse Rate 96 06/02/18 05:15 Respiratory Rate 20 06/02/18 05:15 Blood Pressure 126/80 06/02/18 05:15 O2 Sat by Pulse Oximetry 06/02/18 05:15 Oxygen Delivery Oxygen Delivery Room Air Medical Decision Making - Lab Data Result diagrams: 06/02/18 04:20 06/02/18 04:21 Lab Results 06/02/18 06/02/18 06/02/18 Range/Units 04:20 04:21 04:21 WBC 8.1 (4.3-11.1) K/mcL RBC 4.94 (4.19-5.50) M/mcL Hgb 15.0 D (12.9-16.9) g/dL Hct 44.3 (37.5-50.1) % MCV 89.7 (83.0-100.0) fL MCH 30.4 (28.0-33.3) pg MCHC 33.9 (31.6-35.5) g/dL RDW 12.3 (11.5-14.5) % Plt Count 212 (140-400) K/mcL MPV 9.9 (9.4-12.4) fL Immature Gran % 0.2 (0-4) % Seg Neutrophils % 47.3 % Lymphocytes % 44.4 % Monocytes % 6.8 % Eosinophils % 0.7 % Basophils % 0.6 % Neutrophils # 3.8 (1.6-8.9) K/mcL Lymphocytes # 3.6 (0.6-4.6) K/mcL Monocytes # 0.6 (0.0-1.3) K/mcL Eosinophils # 0.1 (0.0-0.6) K/mcL Basophils # 0.1 (0.0-0.2) K/mcL VBG pH (7.32-7.42) pH Units VBG pCO2 (41-51) mmHg VBG pO2 (25-50) mmHg VBG HCO3 (21-27) mEq/L Sodium 130 L (136-145) mEq/L Potassium 4.9 (3.5-5.1) mEq/L Chloride 95 L (98-107) mEq/L Carbon Dioxide 9 L* (23-29) mEq/L BUN 18 (6-20) mg/dL Creatinine 0.93 (0.70-1.30) mg/dL Est GFR ( Amer) > 60 (> 60) Est GFR (Non-Af Amer) > 60 (> 60) BUN/Creatinine Ratio 19 (6-26) Glucose 461 H (70-105) mg/dL Calculated Osmolality 292 (280-300) Calcium 9.7 (8.6-10.3) mg/dL Total Bilirubin 0.7 (0.3-1.0) mg/dL AST 16 (13-39) Units/L ALT 20 (7-52) Units/L Alkaline Phosphatase 81 (34-104) Units/L Troponin I < 0.03 (< 0.04) ng/mL Serum Total Protein 8.1 (6.4-8.9) g/dL Albumin 4.8 (3.5-5.7) g/dL Globulin 3.3 (2.4-3.5) g/dL Albumin/Globulin Ratio 1.5 (1.1-2.2) Beta-Hydroxybutyric Acd > 2.00 H (0.02-0.27) mmol/L Ur Specimen Adequacy Urine Color (Yellow) Urine Clarity (Clear) Urine pH (5.0-8.0) pH Units Ur Specific [place] (1.010-1.025) Urine Protein (Neg-Trace) mg/dL Urine Glucose (UA) (Normal) mg/dL Urine Ketones (Negative) mg/dL Urine Blood (Negative) Urine Nitrite (Negative) Urine Bilirubin (Negative) Urine Urobilinogen (Normal) mg/dL Ur Leukocyte Esterase (Negative) Urine Microscopic RBC (0-3) per hpf Urine Microscopic WBC (0-3) per hpf Ur Squamous Epith Cells (None-Few) per lpf Urine Bacteria (None-Few) per hpf Ur Culture Indicated? (NO) Person Notif of Crit 06/02/18 06/02/18 Range/Units 04:30 04:36 WBC (4.3-11.1) K/mcL RBC (4.19-5.50) M/mcL Hgb (12.9-16.9) g/dL Hct (37.5-50.1) % MCV (83.0-100.0) fL MCH (28.0-33.3) pg MCHC (31.6-35.5) g/dL RDW (11.5-14.5) % Plt Count (140-400) K/mcL MPV (9.4-12.4) fL Immature Gran % (0-4) % Seg Neutrophils % % Lymphocytes % % Monocytes % % Eosinophils % % Basophils % % Neutrophils # (1.6-8.9) K/mcL Lymphocytes # (0.6-4.6) K/mcL Monocytes # (0.0-1.3) K/mcL Eosinophils # (0.0-0.6) K/mcL Basophils # (0.0-0.2) K/mcL VBG pH 7.18 L* (7.32-7.42) pH Units VBG pCO2 30 L (41-51) mmHg VBG pO2 68 H (25-50) mmHg VBG HCO3 11 L (21-27) mEq/L Sodium (136-145) mEq/L Potassium (3.5-5.1) mEq/L Chloride (98-107) mEq/L Carbon Dioxide (23-29) mEq/L BUN (6-20) mg/dL Creatinine (0.70-1.30) mg/dL Est GFR ( Amer) (> 60) Est GFR (Non-Af Amer) (> 60) BUN/Creatinine Ratio (6-26) Glucose (70-105) mg/dL Calculated Osmolality (280-300) Calcium (8.6-10.3) mg/dL Total Bilirubin (0.3-1.0) mg/dL AST (13-39) Units/L ALT (7-52) Units/L Alkaline Phosphatase (34-104) Units/L Troponin I (< 0.04) ng/mL Serum Total Protein (6.4-8.9) g/dL Albumin (3.5-5.7) g/dL Globulin (2.4-3.5) g/dL Albumin/Globulin Ratio (1.1-2.2) Beta-Hydroxybutyric Acd (0.02-0.27) mmol/L Ur Specimen Adequacy See below A Urine Color Yellow (Yellow) Urine Clarity Clear (Clear) Urine pH 5.0 (5.0-8.0) pH Units Ur Specific [place] > 1.030 H (1.010-1.025) Urine Protein Trace (Neg-Trace) mg/dL Urine Glucose (UA) >=1000 H (Normal) mg/dL Urine Ketones >=160 H (Negative) mg/dL Urine Blood Negative (Negative) Urine Nitrite Negative (Negative) Urine Bilirubin Negative (Negative) Urine Urobilinogen Normal (Normal) mg/dL Ur Leukocyte Esterase Negative (Negative) Urine Microscopic RBC 0-3 (0-3) per hpf Urine Microscopic WBC 0-3 (0-3) per hpf Ur Squamous Epith Cells Few (None-Few) per lpf Urine Bacteria Few (None-Few) per hpf Ur Culture Indicated? NO (NO) Person Notif of Joss Dietz Critical Care Time Critical Care Time: Yes Total Critical Care Time: 35 Attestation: Critical care performed: Time is exclusive of separately billable procedures. Time includes: direct patient care, patient reassessment, coordination of patient care, interpretation of data (laboratory data, radiology data, and respiratory data), review of patient's medical records, medical consultation and documentation of patient care. Procedures included in critical care time: Procedures excluded from critical care time: Attestation Statement - Attestation Attestation: I, Travon Salvador DO have provided Kidb-zw-iews time during the care of this patient. Detailed review the presentation, symptoms, medical history were dis cussed and reviewed with the advanced practice provider Shagufta Dietz PA-C/GLUE JOINTER OPERATOR. Medical intervention labs and imaging studies were reviewed in detail. See full documentation of physical exam and course of care in the advanced practice provider's note. I agree with the determined course of care, medical intervention and disposition put forth by the advanced practice provider. See below documentation for changes or alterations in documentation. 48-year-old male presents emergency room for evaluation of nausea and vomiting. Patient is a history of poorly controlled diabetes. Is currently using insulin pump home as it is directed. Patient has had multiple episodes in the past with hypoglycemia and is fearful of going low with his glucose at home. Patient tends to keep his glucose on the higher side because of his own concern. Patient presented today the glucose greater than 600. He was just discharged from the hospital recently after being treated and evaluated for diabetic ketoacidosis. He said several admissions for similar issue here within the last several months. Currently, the patient is denying chest pain, shortness of breath, headache, vision change. He has had nausea and vomiting but no diarrhea. Denies any recent fevers or chills. Has not had a productive cough cold or sputum. Vital signs at presentation are stable.. Resuscitation will be started. Initial Accu-Chek was 382 at the bedside and is 461 based on laboratory evaluation. Diabetic ketoacidosis evaluation was started this time with fluid resuscitation and labs including CBC, chemistry, venous blood gas, urinalysis. Chest x-ray EKG will be added on as well for evaluation. Admission process will most likely be required. Patient is otherwise clinically stable. Extremities membranes are dry with cracked lips. Trachea is midline. Lungs are clear. Heart is regular. Abdomen is soft. No guarding no rigidity. No other complaints or issues at this time. See detailed documentation of the physical exam, medical intervention, medical decision-making and disposition in the advanced practice provider's note. No critical care pad the patient's treatment course at this time. 0500 Patient meets all the criteria for diabetic ketoacidosis included acidemia, elevated glucose, bicarbonate and ketonuria. Patient Is 24 on examination. He will fluid resuscitation started as well as an insulin drip. Patient will be admitted to the hospital. 35 minutes of critical care pad the patient's treatment course at this time. No other acute changes in the medical intervention at this point. 0545 Patient's troponins negative. EKG does not show any acute signs of ischemic-r elated issue. Mild ST segment elevation in lead V2 no contiguous changes. This is likely positional. Patient will be admitted at this time for symptomatic treatment of diabetic ketoacidosis with failed outpatient management. Patient was discussed with the hospitalist Dr. Ku. We reviewed at length with the patient is not having any active chest pain and that the EKG findings are incidental at least at this time. Patient will be admitted for continuation of care and management. We will monitor the emergency department to the admission process is completed.
[2018-06-02 05:10] LABS: Basophils # 0.1 K/mcL (0.0-0.2); Basophils % 0.6 %; Eosinophils # 0.1 K/mcL (0.0-0.6); Eosinophils % 0.7 %; Hematocrit 44.3 % (37.5-50.1); Immature Granulocytes % 0.2 % (0-4); Lymphocytes # 3.6 K/mcL (0.6-4.6); Lymphocytes % 44.4 %; Mean Corpuscular HGB Conc 33.9 g/dL (31.6-35.5); Mean Corpuscular Hemoglobin 30.4 pg (28.0-33.3); Mean Corpuscular Volume 89.7 fL (83.0-100.0); Mean Platelet Volume 9.9 fL (9.4-12.4); Monocytes # 0.6 K/mcL (0.0-1.3); Monocytes % 6.8 %; Neutrophils # 3.8 K/mcL (1.6-8.9); Platelet Count 212 K/mcL (140-400); Red Blood Count 4.94 M/mcL (4.19-5.50); Red Cell Distribution Width 12.3 % (11.5-14.5); Segmented Neutrophils % 47.3 %
[2018-06-02] MEDS ORDERED: Insulin Human Regular 100 UNIT in 0.9 % Sodium Chloride 100 ML IVC SCH ×3 (05:15→09:15)
[2018-06-02 05:44] LABS: Troponin I < 0.03 ng/mL (< 0.04)
[2018-06-02] MEDS ORDERED: D5% in 0.45% NACL w KCl 20 MEQ/1,000 ML MLS IVC PRN (06:20)
[2018-06-02] MEDS ORDERED: Insulin LISPRO 300 UNITS/3 ML VIAL SQ PRN (06:20)
[2018-06-02] MEDS: 0.9 % Sodium Chloride w KCl 20 MEQ/1,000 ML MLS IVC SCH ×2 (06:37→14:44)
--- NOTE | 2018-06-02 07:44 | Internal Med History&Physical ---
Date of Encounter: 06/02/18 Time of Encounter: 07:40 Internal Medicine - H&P: HPI Chief complaint: DKA Admitted From: Home Plans for Post Hospital Care: Home History of present illness: Mr. Michel is a 48 year old male who has history of diabetes insulin-dependent, on insulin pump at home presenting emergency room for not feeling well nausea vomiting thirsty, glucose was over 600 yesterday. he was finding DKA pH 7.18 sodium 130. Patient stated that she has diabetes for 10 years, started on insulin pump 4 years ago. 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 He was here 4 days ago for DKA just discharged home and to come back for another DKA. He denies any fever or chills denies painful frequently urination. He has been complaining with his diet. He feels like his body is quitting working with insulin. After hydration and insulin drip his sugar come down to 260, vomiting resolved the still have some nausea feels much better. We will continue IV fluids IV insulin drip Past Med Surg Social Fam HX - Past Medical History Medical history: diabetes, hyperlipidemia, other Psychiatric history: no psych history - Past Surgical History Surgical History: other Additional surgical history: T&A, oral surgery - Social History Smoking Status: Never smoker Smokeless Tobacco Status: No Alcohol use: rarely Drug use: none - Family History Mother Hx Family Autoimmune Disorders: Yes (RA) Father Hx Family Endocrine Disorder: Yes Hx Family Autoimmune Disorders: Yes (Grave's disease) Internal Medicine - H&P: Meds Insulin Pump Cartridge [Insulin Pump] 06/02/18 [History] Allergy/AdvReac Type Severity Reaction Status Date / Time No Known Allergies Allergy Verified 06/02/18 04:03 All Systems PM: A 10-system review of systems was performed and is negative for pertinent findings except as documented above in the HPI. - Constitutional Vitals: Temp Pulse Resp BP Pulse Ox 98.9 F 98 18 141/81 97 06/02/18 06:42 06/02/18 06:49 06/02/18 06:42 06/02/18 06:42 06/02/18 06:42 General appearance: Present: A&O X 3, pleasant Exam: CONSTITUTIONAL: Patient appears as an age appropriate male well developed, in no acute distress. EYES Clear sclerae, bilateral pupils are equal, reactive to light and accommodation. Extraocular movements are intact RESPIRATORY: No accessory muscle use, bilateral clear to auscultation, no wheez ing, no crackles/rales. CARDIOVASCULAR: Regular heart rate, normal S1 and S2, no murmurs GASTROINTESTINAL: bowel sounds present, soft, no tenderness. No hepatosplenomegaly. No bilateral CVA tenderness MUSCULOSKELETAL: Joints in normal range of motion, no clubbing, no edema, no cyanosis. Bilateral peripheral pulses 2+ LYMPHATIC no lymphadenopathy in neck, groin and axilla bilaterally, no thyromeg unique. NEUROLOGIC: CN II to XII are grossly intact, no focal neurological deficit. Deep tendon reflexes 2+ bilaterally. Normal light touch sensation to upper and lower extremity PSYCHIATRIC: Oriented x3, with good insight, mood is euthymic. No hallucinations or delusions. SKIN: Skin warm and dry, no rashes, no open wound. Internal Med - H&P Results - Labs CBC & Chem 7: 06/02/18 04:20 06/02/18 04:21 Labs: Short CBC 06/02/18 Range/Units 04:20 WBC 8.1 (4.3-11.1) K/mcL Hgb 15.0 D (12.9-16.9) g/dL Hct 44.3 (37.5-50.1) % Plt Count 212 (140-400) K/mcL Neutrophils # 3.8 (1.6-8.9) K/mcL BMP 06/02/18 04:21 Sodium 130 L Potassium 4.9 Chloride 95 L Carbon Dioxide 9 L* BUN 18 Creatinine 0.93 Glucose 461 H Calcium 9.7 Cardiac Enzymes 06/02/18 Range/Units 04:21 Troponin I < 0.03 (< 0.04) ng/mL Liver Function 06/02/18 Range/Units 04:21 Total Bilirubin 0.7 (0.3-1.0) mg/dL AST 16 (13-39) Units/L ALT 20 (7-52) Units/L Alkaline Phosphatase 81 (34-104) Units/L Albumin 4.8 (3.5-5.7) g/dL Urine 06/02/18 Range/Units 04:30 Urine Color Yellow (Yellow) Urine Clarity Clear (Clear) Urine pH 5.0 (5.0-8.0) pH Units Ur Specific [place] > 1.030 H (1.010-1.025) Urine Protein Trace (Neg-Trace) mg/dL Urine Glucose (UA) >=1000 H (Normal) mg/dL - ABG Interpretation ABG results: 06/02/18 04:36 VBG pH 7.18 L* VBG pCO2 30 L VBG pO2 68 H VBG HCO3 11 L - Impressions ITS Impressions Chest X-Ray 06/02/18 04:47 IMPRESSION: No acute cardiopulmonary abnormality. D/ / Jose Elias MD / Jose Elias MD Interpreting Provider: Jose Elias MD - Assessment and plan (1) DKA (diabetic ketoacidoses) Current Visit: No Status: Resolved Assessment and plan: Patient is likely type 1 diabetes has multiple DKA over last few months. Was on insulin pump at home. Insulin pump was stopped before admission. We will continue insulin drip currently 7.2 units per hour. Continue IV hydration Follow-up Chem-7 every 6 hours Qualifiers: Diabetes mellitus type: type 1 Diabetes mellitus complication detail: without coma Qualified Code(s): E10.10 - Type 1 diabetes mellitus with ketoacidosis without coma (2) Type I diabetes mellitus Current Visit: Yes Status: Chronic Assessment and plan: Was on insulin pump at home. We will restart pump after DKA resolves Qualifiers: Diabetes mellitus complication status: with ketoacidosis Diabetes mellitus complication detail: without coma Qualified Code(s): E10.10 - Type 1 diabetes mellitus with ketoacidosis without coma (3) Hyponatremia Current Visit: Yes Status: Acute Assessment and plan: Likely pseudohyponatremia from hyperglycemia and dehydration (4) Dehydration Current Visit: Yes Status: Acute Assessment and plan: Continue IV fluid hydration (5) DVT prophylaxis Current Visit: Yes Status: Acute Assessment and plan: Lovenox once daily - Time Spent With Patient Total time spent is greater than 50% in coordination of care (as documented) at patient's floor/unit and/or counseling patient: Greater than 35 minutes
[2018-06-02] MEDS ORDERED: Insulin Regular, Human 100 UNIT/ML IV PRN (07:55)
[2018-06-02 08:36] LABS: BUN/Creatinine Ratio 18 (6-26); Blood Urea Nitrogen 19 mg/dL (6-20); Calcium 9.1 mg/dL (8.6-10.3); Carbon Dioxide 9 mEq/L (23-29); Chloride 104 mEq/L (98-107); Glucose 280 mg/dL (70-105); Osmolality,Calculated 286 (280-300); Potassium 4.6 mEq/L (3.5-5.1); Sodium 132 mEq/L (136-145); eGFR For Non-African Americans > 60 (> 60)
[2018-06-02 12:53] LABS: VBG HCO3 20 mEq/L (21-27); VBG PCO2 46 mmHg (41-51); VBG PH 7.24 pH Units (7.32-7.42); VBG PO2 40 mmHg (25-50)
[2018-06-02 13:10] LABS: BUN/Creatinine Ratio 15 (6-26); Blood Urea Nitrogen 14 mg/dL (6-20); Carbon Dioxide 20 mEq/L (23-29); Chloride 106 mEq/L (98-107); Glucose 220 mg/dL (70-105); Osmolality,Calculated 281 (280-300); Sodium 132 mEq/L (136-145); eGFR For Non-African Americans > 60 (> 60)
[2018-06-02] MEDS ORDERED: D5% in Water 1,000 ML IVC PRN (13:57)
[2018-06-02] MEDS ORDERED: Dextrose Gel 15 GM/37.5 ML TUBE PO PRN ×2 (13:57)
[2018-06-02 14:25] LABS: Troponin I < 0.03 ng/mL (< 0.04)
[2018-06-02] MEDS: Insulin DETEMIR 100 UNIT/ML X5UNITS SQ SCH ×2 (14:53→20:37)
[2018-06-02] MEDS ORDERED: Insulin LISPRO 300 UNITS/3 ML VIAL SQ SCH ×2 (16:30→21:00)
[2018-06-02] MEDS: (Subcutaneous Insulin Pump [T:Slim] 1 EACH) SQ SCH (20:36)
[2018-06-02] MEDS ORDERED: Ondansetron 4 MG/2 ML VIAL IVP PRN (20:49)
[2018-06-03] MEDS ORDERED: *HR* Enoxaparin 40 MG/0.4 ML SYRINGE SQ SCH (06:00)
[2018-06-03 07:15] VITALS: BP 98/64
[2018-06-03 08:25] LABS: Basophils % 0.4 %; Eosinophils # 0.1 K/mcL (0.0-0.6); Eosinophils % 2.4 %; Hematocrit 39.2 % (37.5-50.1); Immature Granulocytes % 0.2 % (0-4); Lymphocytes # 2.3 K/mcL (0.6-4.6); Mean Corpuscular HGB Conc 35.7 g/dL (31.6-35.5); Mean Corpuscular Hemoglobin 30.6 pg (28.0-33.3); Mean Corpuscular Volume 85.8 fL (83.0-100.0); Mean Platelet Volume 9.7 fL (9.4-12.4); Monocytes # 0.5 K/mcL (0.0-1.3); Monocytes % 8.2 %; Neutrophils # 2.6 K/mcL (1.6-8.9); Platelet Count 171 K/mcL (140-400); Red Blood Count 4.57 M/mcL (4.19-5.50); Red Cell Distribution Width 12.7 % (11.5-14.5); Segmented Neutrophils % 47.8 %
[2018-06-03 08:43] LABS: BUN/Creatinine Ratio 23 (6-26); Blood Urea Nitrogen 17 mg/dL (6-20); Calcium 9.4 mg/dL (8.6-10.3); Carbon Dioxide 23 mEq/L (23-29); Chloride 105 mEq/L (98-107); Glucose 160 mg/dL (70-105); Magnesium 1.6 mg/dL (1.6-2.6); Osmolality,Calculated 285 (280-300); Phosphorous 2.8 mg/dL (2.7-4.5); Potassium 3.7 mEq/L (3.5-5.1); Sodium 135 mEq/L (136-145); eGFR For Non-African Americans > 60 (> 60)
[2018-06-03] MEDS: (Subcutaneous Insulin Pump [T:Slim] 1 EACH) SQ SCH (08:47)
--- NOTE | 2018-06-03 10:19 | Internal Med Progress Note ---
Hospitalist Progress Note - Encounter Date of Encounter: 06/03/18 Time of Encounter: 09:40 - Exam Vitals: Temp Pulse Resp BP Pulse Ox 97.7 F 88 18 98/64 97 06/03/18 07:11 06/03/18 07:11 06/03/18 07:11 06/03/18 07:11 06/03/18 07:11 - Summary of Assessment and Plan Summary of Assessment and Plan: DKA - On DKA protocol with insulin drip and IVF - AG at 13. Patient without N/V. Will start diet and switch to insulin pump. - multiple DKA over last few months. Was on insulin pump at home. - Insulin pump was stopped before admission. We will continue insulin drip currently 7.2 units per hour. Type I diabetes mellitus - Was on insulin pump at home. - resume pump after DKA resolves Hyponatremia - Likely pseudohyponatremia from hyperglycemia and dehydration - improved DVT prophylaxis - Lovenox once daily - Time Spent with Patient Total time spent is greater than 50% in coordination of care (as documented) at patient's floor/unit and/or counseling patient: Internal Medicine: Result - Labs CBC & Chem 7: 06/03/18 07:57 06/03/18 07:57 Labs: Short CBC 06/03/18 Range/Units 07:57 WBC 5.5 (4.3-11.1) K/mcL Hgb 14.0 (12.9-16.9) g/dL Hct 39.2 (37.5-50.1) % Plt Count 171 (140-400) K/mcL Neutrophils # 2.6 (1.6-8.9) K/mcL BMP 06/02/18 06/03/18 12:38 07:57 Sodium 132 L 135 L Potassium 4.0 3.7 Chloride 106 105 Carbon Dioxide 20 L 23 BUN 14 17 Creatinine 0.92 0.74 Glucose 220 H 160 H Calcium 9.0 9.4 Cardiac Enzymes 06/02/18 Range/Units 12:38 Troponin I < 0.03 (< 0.04) ng/mL Consult Discharge Plan - Plan Instructions: Diabetes Mellitus Type 2 in Adults (DC), Gastroenteritis (DC) Referrals: Jenaro Doherty MD [Primary Care Provider] - 06/08/18 10:15 am Bebe Lemus MD [Non-Partnered Physician] - ([phone] Office called and said for the patient to call and make his own appointment)
--- NOTE | 2018-06-03 10:49 | Discharge Summary ---
- NOTES TO OUTPATIENT PROVIDER Notes to Outpatient Provider: Patient would need close follow-up with endocrinology to optimize his insulin regimen and diabetes education with insulin pump. May benefit from continuous glucose monitoring. Consider starting statin Orders not resulted at time of discharge: Pending orders 06/03/18 06:00 ECG 12 lead ECG [ECG] AM 0600 Date of Encounter: 06/03/18 Time of Encounter: 10:47 - Discharge Diagnosis (1) Dehydration Priority: Secondary Status: Acute (2) Hyponatremia Priority: Primary Status: Acute (3) Nausea & vomiting Priority: Primary Status: Acute Qualifiers: Vomiting type: unspecified Vomiting Intractability: unspecified Qualified Code(s): R11.2 - Nausea with vomiting, unspecified (4) Diabetic keto-acidosis Priority: Primary Status: Acute Qualifiers: Diabetes mellitus type: type 1 Diabetes mellitus complication detail: without coma Qualified Code(s): E10.10 - Type 1 diabetes mellitus with ketoacidosis without coma Hospital course: Mr. Michel is a 48 year old male with type 1 diabetes on insulin pump who was recently discharged after DKA came in with complain of nausea and vomiting. Patient did not get a chance to follow-up in endocrinology. He was eating well after discharge however his sugars were uncontrolled and he was using boluses based on the insulin pump recommendation along with insulin basal rates setting his insulin pump. Patient was started on insulin drip and IV fluids as per DKA protocol. Patient did not have any signs of infection. Patient's anion gap closed and he is able to tolerate his diet well and wishes to go home today. Had extensive discussion with the patient as the possible causes of DKA most likely been not getting enough insulin. Advised to follow-up with endocrinology as soon as possible for adjustment in his insulin regimen. Also asked to take higher boluses beyond recommended by the insulin pump if blood glucose is not getting under control. Patient was to continue using his insulin pump. Patient would be discharged today home. Discharge discussed with: patient, nurse - Time Spent with Patient Total time spent providing and/or coordinating discharge services: Greater than 30 minutes (45) - Discharge Medications Home Medications: Insulin Pump Cartridge [Insulin Pump] 0 units SQ AD 06/02/18 [History] Allergies/Adverse Reactions: Allergy/AdvReac Type Severity Reaction Status Date / Time No Known Allergies Allergy Verified 06/02/18 04:03 Date of admission: 06/02/18 08:21 Primary care physician: Jenaro Doherty MD Discharging clinician: Ravne Araujo - Constitutional Vitals: Temp Pulse Resp BP Pulse Ox 97.7 F 88 18 98/64 97 06/03/18 07:11 06/03/18 07:11 06/03/18 07:11 06/03/18 07:11 06/03/18 07:11 Exam: General: In no acute distress. Conversant. Respiratory exam: CTAB. no accessory muscle use, rales, rhonchi, wheezes Cardiovascular exam: RRR, +S1, +S2. no murmur, gallop, rubs. GI/Abdominal exam: Non-tender, Non-distended, normal bowel sounds, soft, no peritoneal signs. Extremities exam: full ROM, no pedal edema, warm, pulses palpable in b/l lower extremities. no calf tenderness Neurological exam: CN II-XII intact, AO X3, no focal deficits. no pronater drift, facial droop, speech deficit Skin exam: No skin rash, ulcer, purpura or ecchymosis. - Patient Status Disposition: Home, Self-Care Condition: Fair - Discharge Instructions Instructions: Diabetes Mellitus Type 2 in Adults (DC), Gastroenteritis (DC) Follow Up With: Jenaro Doherty MD [Primary Care Provider] - 06/08/18 10:15 am Bebe Lemus MD [Non-Partnered Physician] - ([phone] Office called and said for the patient to call and make his own appointment)
--- NOTE | 2018-06-03 11:12 | Electrocardiograph Report ---
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
--- NOTE | 2018-06-03 11:12 | Electrocardiograph Report ---
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
== END 2018-06-03 12:47 | disposition home or self-care (01) | DRG 638 ==
LOC: 2NNU 03:56 → EMEROOARM 03:56 → 2NNU 06:05 → SUATTDRO 08:21
PROVIDERS: ADMIT Pediatrics; ATTEND Internal Medicine

== ENCOUNTER 2018-10-14 02:09 | Inpatient (IN) ==
[2018-10-14] MEDS ORDERED: 0.9 % Sodium Chloride 1,000 ML IVC STA ×2 (02:41→03:21)
[2018-10-14] MEDS ORDERED: Ondansetron 4 MG/2 ML VIAL IVP STA (02:42)
--- NOTE | 2018-10-14 02:45 | Emergency Department Note ---
Disposition Clinical Impression: Diabetic ketoacidosis associated with type 1 diabetes mellitus Qualifiers: Diabetes mellitus complication detail: without coma Qualified Code(s): E10.10 - Type 1 diabetes mellitus with ketoacidosis without coma Disposition: Admitted As Inpatient Time of Disposition: 04:00 General Adult HPI - General Stated complaint: diabetic ketoacidosis Time Seen by Provider: 10/14/18 02:32 Nursing Notes Reviewed: Yes Vital Signs Reviewed: Yes - History of Present Illness HPI Narrative: 48-year-old male with history of type 1 diabetes who presents the emergency department with complaints of nausea, vomiting and concern for DKA. He states this has started this afternoon around noon. He did change his site of pump placement and since that time he has been worried that he has not been getting his insulin. Later on this evening he began to develop nausea with a few episodes of vomiting. He denies any abdominal pain. He states his blood sugars have been running in the 300s and he has had 80 ketones in his urine. He attempted to give himself a bolus at 11:00 PM with his insulin pump but given he persisted to have vomiting he came to the emergency department. He also admits to polyuria and polydipsia. He denies any fever, cough, congestion, back pain. - Related Data Home Medications Medication Instructions Recorded Confirmed Insulin Pump Cartridge [Insulin 0 units SQ AD 06/02/18 06/03/18 Pump] Allergies Allergy/AdvReac Type Severity Reaction Status Date / Time No Known Allergies Allergy Verified 06/02/18 04:03 Review of Systems: ROS per history of present illness, all other systems reviewed and negative or n ormal. All systems ED: reviewed and negative except as stated. Review of Systems: As Per HPI Past Medical History - Past Medical History Medical history: Reports: diabetes, hyperlipidemia, other Surgical history: Reports: other Psychiatric history: Reports: no psych history - Social History Smoking Status: Never smoker Smokeless Tobacco Status: No Alcohol use: Reports: rarely Drug use: Reports: none Physical Exam General: Conversant. No apparent distress. Follow commands. Appears stated age. Neck: No JVD. Trachea midline. Neck supple. Eyes: PERRL. No scleral icterus. HENT: Normocephalic and atraumatic. Dry mucus membranes. Cardiovascular: Regular rate and rhythm. Normal S1 and S2. No murmurs appreciated. Normal capillary refill. Extremities well perfused with 2+ distal pulses bilaterally. No edema. Pulmonary: Normal and equal breath sounds bilaterally, anteriorly and poste riorly. No wheezes, rales, or rhonchi. Not in respiratory distress. Speaks in full sentences. Abdomen: Soft, nondistended, and tontender. No bruits or masses. No guarding. Neuro: Alert and oriented x3. No slurred speech. No focal deficits noted. Skin: No rashes noted on visualized skin. Musculoskeletal: No bony abnormalities visualized. Moves all extremities. Psych: Normal mood. Pleasant. Makes appropriate eye contact. Course Vital Signs Temperature 97.8 F 10/14/18 02:40 Pulse Rate 109 10/14/18 02:40 Respiratory Rate 20 10/14/18 02:40 Blood Pressure 129/68 10/14/18 02:40 O2 Sat by Pulse Oximetry 95 10/14/18 02:40 Temperature 98.1 F 10/14/18 05:19 Pulse Rate 104 10/14/18 05:19 Respiratory Rate 18 10/14/18 05:19 Blood Pressure 139/73 10/14/18 05:19 O2 Sat by Pulse Oximetry 94 10/14/18 05:19 Oxygen Delivery Oxygen Delivery Room Air Medical Decision Making - MDM Narrative Medical decision making narrative: 48-year-old male with history of diabetes type 1 and several episodes of DKA who presents with similar symptoms to his previous episodes of DKA. The patient states he has had ketones in his urine and elevated glucoses over the past 12 hours. On arrival patient is afebrile and in no significant distress. The patient does have dry mucous membranes. No significant abdominal tenderness and he is not profusely vomiting. We did obtain CBC, BMP, beta hydroxybutyrate, VBG and urinalysis which showed evidence of diabetic ketoacidosis with anion gap of 22. PH 7.19 and beta hydroxybutyrate is greater than 2. Patient's potassium is 5.0. The patient was given 2 L fluid bolus and initiated on insulin drip with 20mEq potassium. He is required Zofran for nausea management. Discussed case with on-call hospitalist Dr. Aj who agrees with plan for admission and accepts the patient to the inpatient service. Patient agrees with and understands course of treatment plan including plan for admission. All questions answered. - Medical Records Medical records reviewed: Yes I reviewed the patient's medical records. - Lab Data Lab results reviewed: Yes I reviewed the patient's lab results. Result diagrams: 10/14/18 03:00 10/14/18 03:00 Lab Results 10/14/18 10/14/18 10/14/18 Range/Units 03:00 03:00 03:00 WBC 10.5 (4.3-11.1) K/mcL RBC 4.78 (4.19-5.50) M/mcL Hgb 14.2 (12.9-16.9) g/dL Hct 41.9 (37.5-50.1) % MCV 87.7 (83.0-100.0) fL MCH 29.7 (28.0-33.3) pg MCHC 33.9 (31.6-35.5) g/dL RDW 11.8 (11.5-14.5) % Plt Count 184 (140-400) K/mcL MPV 9.9 (9.4-12.4) fL Immature Gran % 0.3 (0-4) % Seg Neutrophils % 80.0 % Lymphocytes % 13.2 % Monocytes % 5.8 % Eosinophils % 0.2 % Basophils % 0.5 % Neutrophils # 8.4 (1.6-8.9) K/mcL Lymphocytes # 1.4 (0.6-4.6) K/mcL Monocytes # 0.6 (0.0-1.3) K/mcL Eosinophils # 0.0 (0.0-0.6) K/mcL Basophils # 0.1 (0.0-0.2) K/mcL VBG pH (7.32-7.42) pH Units VBG pCO2 (41-51) mmHg VBG pO2 (25-50) mmHg VBG HCO3 (21-27) mEq/L Sodium 131 L (136-145) mEq/L Potassium 5.0 (3.5-5.1) mEq/L Chloride 96 L (98-107) mEq/L Carbon Dioxide 13 L (23-29) mEq/L BUN 17 (6-20) mg/dL Creatinine 1.07 (0.70-1.30) mg/dL Est GFR ( Amer) > 60 (> 60) Est GFR (Non-Af Amer) > 60 (> 60) BUN/Creatinine Ratio 16 (6-26) Glucose 355 H (70-105) mg/dL Calculated Osmolality 288 (280-300) Calcium 9.7 (8.6-10.3) mg/dL Magnesium 2.0 (1.6-2.6) mg/dL Lipase 17 (11-82) Units/L Beta-Hydroxybutyric Acd > 2.00 H (0.02-0.27) mmol/L Urine Color (Yellow) Urine Clarity (Clear) Urine pH (5.0-8.0) pH Units Ur Specific [place] (1.010-1.025) Urine Protein (Neg-Trace) mg/dL Urine Glucose (UA) (Normal) mg/dL Urine Ketones (Negative) mg/dL Urine Blood (Negative) Urine Nitrite (Negative) Urine Bilirubin (Negative) Urine Urobilinogen (Normal) mg/dL Ur Leukocyte Esterase (Negative) Ur Culture Indicated? (NO) Person Notif of Crit 10/14/18 10/14/18 Range/Units 03:15 03:39 WBC (4.3-11.1) K/mcL RBC (4.19-5.50) M/mcL Hgb (12.9-16.9) g/dL Hct (37.5-50.1) % MCV (83.0-100.0) fL MCH (28.0-33.3) pg MCHC (31.6-35.5) g/dL RDW (11.5-14.5) % Plt Count (140-400) K/mcL MPV (9.4-12.4) fL Immature Gran % (0-4) % Seg Neutrophils % % Lymphocytes % % Monocytes % % Eosinophils % % Basophils % % Neutrophils # (1.6-8.9) K/mcL Lymphocytes # (0.6-4.6) K/mcL Monocytes # (0.0-1.3) K/mcL Eosinophils # (0.0-0.6) K/mcL Basophils # (0.0-0.2) K/mcL VBG pH 7.19 L* (7.32-7.42) pH Units VBG pCO2 30 L (41-51) mmHg VBG pO2 75 H (25-50) mmHg VBG HCO3 11 L (21-27) mEq/L Sodium (136-145) mEq/L Potassium (3.5-5.1) mEq/L Chloride (98-107) mEq/L Carbon Dioxide (23-29) mEq/L BUN (6-20) mg/dL Creatinine (0.70-1.30) mg/dL Est GFR ( Amer) (> 60) Est GFR (Non-Af Amer) (> 60) BUN/Creatinine Ratio (6-26) Glucose (70-105) mg/dL Calculated Osmolality (280-300) Calcium (8.6-10.3) mg/dL Magnesium (1.6-2.6) mg/dL Lipase (11-82) Units/L Beta-Hydroxybutyric Acd (0.02-0.27) mmol/L Urine Color Yellow (Yellow) Urine Clarity Clear (Clear) Urine pH 5.0 (5.0-8.0) pH Units Ur Specific [place] 1.022 (1.010-1.025) Urine Protein Negative (Neg-Trace) mg/dL Urine Glucose (UA) >=1000 H (Normal) mg/dL Urine Ketones >=160 H (Negative) mg/dL Urine Blood Negative (Negative) Urine Nitrite Negative (Negative) Urine Bilirubin Negative (Negative) Urine Urobilinogen Normal (Normal) mg/dL Ur Leukocyte Esterase Negative (Negative) Ur Culture Indicated? NO (NO) Person Notif of Joss MARTINEZ/Tory Worrell
[2018-10-14 03:13] LABS: Basophils # 0.1 K/mcL (0.0-0.2); Basophils % 0.5 %; Eosinophils % 0.2 %; Hematocrit 41.9 % (37.5-50.1); Hemoglobin 14.2 g/dL (12.9-16.9); Immature Granulocytes % 0.3 % (0-4); Lymphocytes # 1.4 K/mcL (0.6-4.6); Lymphocytes % 13.2 %; Mean Corpuscular HGB Conc 33.9 g/dL (31.6-35.5); Mean Corpuscular Hemoglobin 29.7 pg (28.0-33.3); Mean Corpuscular Volume 87.7 fL (83.0-100.0); Mean Platelet Volume 9.9 fL (9.4-12.4); Monocytes # 0.6 K/mcL (0.0-1.3); Monocytes % 5.8 %; Neutrophils # 8.4 K/mcL (1.6-8.9); Platelet Count 184 K/mcL (140-400); Red Blood Count 4.78 M/mcL (4.19-5.50); Red Cell Distribution Width 11.8 % (11.5-14.5); White Blood Count 10.5 K/mcL (4.3-11.1)
[2018-10-14 03:23] LABS: VBG HCO3 11 mEq/L (21-27); VBG PCO2 30 mmHg (41-51); VBG PH 7.19 pH Units (7.32-7.42); VBG PO2 75 mmHg (25-50)
[2018-10-14 03:31] LABS: BUN/Creatinine Ratio 16 (6-26); Blood Urea Nitrogen 17 mg/dL (6-20); Calcium 9.7 mg/dL (8.6-10.3); Carbon Dioxide 13 mEq/L (23-29); Chloride 96 mEq/L (98-107); Glucose 355 mg/dL (70-105); Lipase 17 Units/L (11-82); Osmolality,Calculated 288 (280-300); Sodium 131 mEq/L (136-145); eGFR For African Americans > 60 (> 60); eGFR For Non-African Americans > 60 (> 60)
[2018-10-14] MEDS ORDERED: *HR* Dextrose 50 % in Water (Syg) 50 ML SYRINGE IVP PRN ×3 (03:42→17:31)
[2018-10-14] MEDS ORDERED: Insulin Human Regular 100 UNIT in 0.9 % Sodium Chloride 100 ML IVC SCH ×2 (03:45→04:45)
--- NOTE | 2018-10-14 03:59 | Emergency Department Note ---
Disposition Clinical Impression: Diabetic ketoacidosis associated with type 1 diabetes mellitus Qualifiers: Diabetes mellitus complication detail: without coma Qualified Code(s): E10.10 - Type 1 diabetes mellitus with ketoacidosis without coma Disposition: Admitted As Inpatient Condition: Fair Time of Disposition: 04:00 General Adult HPI - General Chief complaint: ED General Medical Stated complaint: diabetic ketoacidosis Time Seen by Provider: 10/14/18 02:32 Source: patient Limitations: no limitations Nursing Notes Reviewed: Yes Vital Signs Reviewed: Yes - History of Present Illness Pain Scale: 0 - Related Data Home Medications Medication Instructions Recorded Confirmed Insulin Pump Cartridge [Insulin 0 units SQ AD 06/02/18 06/03/18 Pump] Allergies Allergy/AdvReac Type Severity Reaction Status Date / Time No Known Allergies Allergy Verified 06/02/18 04:03 Past Medical History - Past Medical History Medical history: Reports: diabetes, hyperlipidemia, other Surgical history: Reports: other Psychiatric history: Reports: no psych history - Social History Smoking Status: Never smoker Smokeless Tobacco Status: No Alcohol use: Reports: rarely Drug use: Reports: none Physical Exam - General Limitations: no limitations General appearance: alert, in no apparent distress Course Vital Signs Temperature 97.8 F 10/14/18 02:40 Pulse Rate 109 10/14/18 02:40 Respiratory Rate 20 10/14/18 02:40 Blood Pressure 129/68 10/14/18 02:40 O2 Sat by Pulse Oximetry 95 10/14/18 02:40 Temperature 98.1 F 10/14/18 05:19 Pulse Rate 98 10/14/18 06:00 Respiratory Rate 16 10/14/18 06:00 Blood Pressure 133/65 10/14/18 06:00 O2 Sat by Pulse Oximetry 96 10/14/18 06:00 Oxygen Delivery Oxygen Delivery Room Air Medical Decision Making - Medical Records Medical records reviewed: Yes I reviewed the patient's medical records. - Lab Data Lab results reviewed: Yes I reviewed the patient's lab results. Result diagrams: 10/14/18 03:00 10/14/18 05:08 Lab Results 10/14/18 10/14/18 10/14/18 Range/Units 03:00 03:00 03:00 WBC 10.5 (4.3-11.1) K/mcL RBC 4.78 (4.19-5.50) M/mcL Hgb 14.2 (12.9-16.9) g/dL Hct 41.9 (37.5-50.1) % MCV 87.7 (83.0-100.0) fL MCH 29.7 (28.0-33.3) pg MCHC 33.9 (31.6-35.5) g/dL RDW 11.8 (11.5-14.5) % Plt Count 184 (140-400) K/mcL MPV 9.9 (9.4-12.4) fL Immature Gran % 0.3 (0-4) % Seg Neutrophils % 80.0 % Lymphocytes % 13.2 % Monocytes % 5.8 % Eosinophils % 0.2 % Basophils % 0.5 % Neutrophils # 8.4 (1.6-8.9) K/mcL Lymphocytes # 1.4 (0.6-4.6) K/mcL Monocytes # 0.6 (0.0-1.3) K/mcL Eosinophils # 0.0 (0.0-0.6) K/mcL Basophils # 0.1 (0.0-0.2) K/mcL VBG pH (7.32-7.42) pH Units VBG pCO2 (41-51) mmHg VBG pO2 (25-50) mmHg VBG HCO3 (21-27) mEq/L Sodium 131 L (136-145) mEq/L Potassium 5.0 (3.5-5.1) mEq/L Chloride 96 L (98-107) mEq/L Carbon Dioxide 13 L (23-29) mEq/L BUN 17 (6-20) mg/dL Creatinine 1.07 (0.70-1.30) mg/dL Est GFR ( Amer) > 60 (> 60) Est GFR (Non-Af Amer) > 60 (> 60) BUN/Creatinine Ratio 16 (6-26) Glucose 355 H (70-105) mg/dL Calculated Osmolality 288 (280-300) Calcium 9.7 (8.6-10.3) mg/dL Magnesium 2.0 (1.6-2.6) mg/dL Lipase 17 (11-82) Units/L Beta-Hydroxybutyric Acd > 2.00 H (0.02-0.27) mmol/L Urine Color (Yellow) Urine Clarity (Clear) Urine pH (5.0-8.0) pH Units Ur Specific [place] (1.010-1.025) Urine Protein (Neg-Trace) mg/dL Urine Glucose (UA) (Normal) mg/dL Urine Ketones (Negative) mg/dL Urine Blood (Negative) Urine Nitrite (Negative) Urine Bilirubin (Negative) Urine Urobilinogen (Normal) mg/dL Ur Leukocyte Esterase (Negative) Ur Culture Indicated? (NO) Person Notif of Crit 10/14/18 10/14/18 Range/Units 03:15 03:39 WBC (4.3-11.1) K/mcL RBC (4.19-5.50) M/mcL Hgb (12.9-16.9) g/dL Hct (37.5-50.1) % MCV (83.0-100.0) fL MCH (28.0-33.3) pg MCHC (31.6-35.5) g/dL RDW (11.5-14.5) % Plt Count (140-400) K/mcL MPV (9.4-12.4) fL Immature Gran % (0-4) % Seg Neutrophils % % Lymphocytes % % Monocytes % % Eosinophils % % Basophils % % Neutrophils # (1.6-8.9) K/mcL Lymphocytes # (0.6-4.6) K/mcL Monocytes # (0.0-1.3) K/mcL Eosinophils # (0.0-0.6) K/mcL Basophils # (0.0-0.2) K/mcL VBG pH 7.19 L* (7.32-7.42) pH Units VBG pCO2 30 L (41-51) mmHg VBG pO2 75 H (25-50) mmHg VBG HCO3 11 L (21-27) mEq/L Sodium (136-145) mEq/L Potassium (3.5-5.1) mEq/L Chloride (98-107) mEq/L Carbon Dioxide (23-29) mEq/L BUN (6-20) mg/dL Creatinine (0.70-1.30) mg/dL Est GFR ( Amer) (> 60) Est GFR (Non-Af Amer) (> 60) BUN/Creatinine Ratio (6-26) Glucose (70-105) mg/dL Calculated Osmolality (280-300) Calcium (8.6-10.3) mg/dL Magnesium (1.6-2.6) mg/dL Lipase (11-82) Units/L Beta-Hydroxybutyric Acd (0.02-0.27) mmol/L Urine Color Yellow (Yellow) Urine Clarity Clear (Clear) Urine pH 5.0 (5.0-8.0) pH Units Ur Specific [place] 1.022 (1.010-1.025) Urine Protein Negative (Neg-Trace) mg/dL Urine Glucose (UA) >=1000 H (Normal) mg/dL Urine Ketones >=160 H (Negative) mg/dL Urine Blood Negative (Negative) Urine Nitrite Negative (Negative) Urine Bilirubin Negative (Negative) Urine Urobilinogen Normal (Normal) mg/dL Ur Leukocyte Esterase Negative (Negative) Ur Culture Indicated? NO (NO) Person Notif of [facility]/Tory Worrell Critical Care Time Critical Care Time: Yes Total Critical Care Time: 40 Attestation: Critical care performed: Time is exclusive of separately billable procedures. Time includes: direct patient care, patient reassessment, coordination of patient care, interpretation of data (laboratory data, radiology data, and respiratory data), review of patient's medical records, medical consultation and documentation of patient care. Procedures included in critical care time: Procedures excluded from critical care time: Attestation Statement - Attestation Attestation: I, Prateek Stein MD, personally evaluated this patient and discussed their management with the resident physician. I reviewed the resident's note and agree with the documented findings, medical decision making, and plan of care. 48-year-old male with history of insulin-dependent diabetes presents to the emergency department with a complaint of DKA symptoms. Patient has a history of recurrent DKA. He states that about noon yesterday his sugar started running greater than 300 and he could not get it down. Later in the evening he started developing some body aches and myalgias and arthralgias. He developed nausea and a few episodes of vomiting. He checked his ketones and it was greater than right ear. He states this feels the same as his usual episodes of DKA. On examination patient is a well-developed well-nourished male in no acute d istress. He is alert and oriented 3. There is no cyanosis or diaphoresis. Breath sounds are clear and equal bilaterally. Heart regular rate and rhythm. Abdomen is soft and nontender with normal bowel sounds. Labs reviewed. Consistent with DKA. Anion gap of 29. PH 7.19. Beta hydroxybutyric acid greater than 2. Patient started on insulin infusion. The hospitalist, Dr. Aj, was consulted and accepted admission of the patient.
[2018-10-14 04:07] LABS: Bilirubin,Urine Negative (Negative); Blood,Urine Negative (Negative); Clarity,Urine Clear (Clear); Color,Urine Yellow (Yellow); Glucose,Urine (UA) >=1000 mg/dL (Normal); Ketones,Urine >=160 mg/dL (Negative); Leukocyte Esterase,Urine Negative (Negative); Nitrite,Urine Negative (Negative); Protein,Urine Negative (Neg-Trace); Specific Gravity,Urine 1.022 (1.010-1.025); Urobilinogen,Urine Normal (Normal)
[2018-10-14] MEDS ORDERED: D5% in 0.45% NACL w KCl 20 MEQ/1,000 ML MLS IVC PRN (04:35)
[2018-10-14] MEDS ORDERED: D5% in 0.45% NACL 1,000 ML IVC PRN (04:35)
[2018-10-14] MEDS ORDERED: Insulin LISPRO 300 UNITS/3 ML VIAL SQ PRN (04:35)
--- NOTE | 2018-10-14 04:35 | Internal Med History&Physical ---
<Carlitos Ayala S - Last Filed: 10/14/18 05:08> Date of Encounter: 10/14/18 Time of Encounter: 04:41 Internal Medicine - H&P: HPI Chief complaint: dka Admitted From: Home Plans for Post Hospital Care: Home History of present illness: Mr. Michel is a 48 year old male with a PMH of diabetes. He is coming to the ER today with the chief complaint of DKA. He states that he has had >10 episodes of DKA and that he began to experience nausea, vomiting and concerns that he was in DKA yesterday. He was diagnosed with DM when he was 39 yrs old and was initially on oral hypoglycemic agents, however, became intolerant to them and eventually required insulin. He now requires insulin pump and has had a pump for a few years. He states that he changes his pump placement every three days. He states that his new pump placement said "not delivered" for when he attempted to give himself insulin. He then began to develop nausea and vomiting. BG was in the mid 300's at home per the patient. He became increasingly thirsty and decided to come in for evaluation. He does deny fever/chills, chest pain, SOB, abdominal pain or dysuria. He denies recent illness or sick contact. He was found to have an elevated beta hy droxybutyric acid in the ER with hyperglycemia. His ABG showed a pH of 7.19. He was started on DKA protocol. He will be admitted for further treatment. Past Med Surg Social Fam HX - Past Medical History Medical history: diabetes, hyperlipidemia, other Psychiatric history: no psych history - Past Surgical History Surgical History: other Additional surgical history: T&A, oral surgery - Social History Smoking Status: Never smoker Smokeless Tobacco Status: No Alcohol use: rarely Drug use: none - Family History Mother Hx Family Autoimmune Disorders: Yes (RA) Father Hx Family Endocrine Disorder: Yes Hx Family Autoimmune Disorders: Yes (Grave's disease) Internal Medicine - H&P: Meds Insulin Pump Cartridge [Insulin Pump] 0 units SQ AD 06/02/18 [History] Allergy/AdvReac Type Severity Reaction Status Date / Time No Known Allergies Allergy Verified 06/02/18 04:03 All Systems PM: A 10-system review of systems was performed and is negative for pertinent findings except as documented above in the HPI. - Constitutional Constitutional: lethargy, malaise, no chills, no fever(s) - EENT Eyes: no blurry vision, no change in vision Ears: no tinnitus Nose, mouth and throat: dry mouth - Cardiovascular Cardiovascular ROS IM: no chest pain, no dyspnea, no dyspnea on exertion - Respiratory Respiratory: no cough, no dyspnea, no dyspnea on exertion - Gastrointestinal Gastrointestinal: nausea, vomiting, no abdominal pain, no diarrhea - Genitourinary Genitourinary ROS male: no dysuria, no hematuria - Musculoskeletal Musculoskeletal ROS IM: no numbness, no tingling - Integumentary Integumentary IM: no new lesions, no unusual bruising - Neurological Neurological ROS: weakness, no numbness, no tingling - Endocrine Endocrine IM: fatigue, polydipsia - Hematologic/Lymphatic Hematologic/Lymphatic: no easy bleeding, no easy bruising - Constitutional Vitals: Temp Pulse Resp BP Pulse Ox 97.8 F 94 20 123/64 99 10/14/18 02:40 10/14/18 03:47 10/14/18 03:47 10/14/18 03:47 10/14/18 03:47 Exam: general - aox3, nad, laying in bed comfortably heent - ncat, no scleral icterus, dry MM neck - no jvd, supple cardio - tacycardia s1s2 cta no mrg lungs - ctab, no wheeze/rhonchi/rales not in respiratory distress abd - soft, ntnd, no rebound or guarding, no peritoneal signs extremities - moves all extremities equally, no peripheral pitting edema, streng th intact 5/5 neuro - no fnd, sensation intact skin - diminished capillary refill, warm/dry/intact psych - appropriate mood/affect Internal Med - H&P Results - Labs CBC & Chem 7: 10/14/18 03:00 10/14/18 03:00 Labs: Short CBC 10/14/18 Range/Units 03:00 WBC 10.5 (4.3-11.1) K/mcL Hgb 14.2 (12.9-16.9) g/dL Hct 41.9 (37.5-50.1) % Plt Count 184 (140-400) K/mcL Neutrophils # 8.4 (1.6-8.9) K/mcL BMP 10/14/18 03:00 Sodium 131 L Potassium 5.0 Chloride 96 L Carbon Dioxide 13 L BUN 17 Creatinine 1.07 Glucose 355 H Calcium 9.7 Urine 10/14/18 Range/Units 03:39 Urine Color Yellow (Yellow) Urine Clarity Clear (Clear) Urine pH 5.0 (5.0-8.0) pH Units Ur Specific [place] 1.022 (1.010-1.025) Urine Protein Negative (Neg-Trace) mg/dL Urine Glucose (UA) >=1000 H (Normal) mg/dL - ABG Interpretation ABG results: 10/14/18 03:15 VBG pH 7.19 L* VBG pCO2 30 L VBG pO2 75 H VBG HCO3 11 L - Assessment and Plan (1) Diabetic keto-acidosis Current Visit: Yes Status: Acute Assessment and plan: Pt with hx of DM, switched insulin pump today and states that it "wasn't being delivered" - has had multiple episodes of DKA - diagnosed with diabetes at 39yo, states originally diagnosed with T2DM but is completely insulin dependent now Beta hydroxybutyric acid >2 Last HbA1c 11.8 in May UA showing ketones and >1000 glucose Sodium 131, corrected to be 135 Initial AG 22 Initial ABG: pH 7.19, pCO2 30, HCO3 11 metabolic acidosis with elevated anion gap secondary to DKA Precipitant likely lack of insulin delivery from malfunctioning pump UA without infxn, pt remains afebrile, no leukocytosis No imaging performed, however, pt has benign respiratory exam Plan: - SW consulted - insulin drip as per DKA protocol - electrolyte protocol - IVF as per DKA protocol - repeat ABG pending for 06:00 - BMP q2hr - zofran prn nausea - telemetry montioring - HbA1c pending - lactic acid pending - FEN: NPO - DVT prophylaxis: sq heparin - dispo: resolution of DKA, would benefit from diabetes education Qualifiers: Diabetes mellitus type: type 1 Diabetes mellitus complication detail: without coma Qualified Code(s): E10.10 - Type 1 diabetes mellitus with ketoacidosis without coma (2) DVT prophylaxis Current Visit: Yes Status: Acute Assessment and plan: sq heparin (3) Hyponatremia Current Visit: Yes Status: Acute Assessment and plan: Na 131, corrected for hyperglycemia to 135. (4) Nausea & vomiting Current Visit: Yes Status: Acute Assessment and plan: zofran prn. Qualifiers: Vomiting type: unspecified Vomiting Intractability: unspecified Qualified Code(s): R11.2 - Nausea with vomiting, unspecified (5) Type I diabetes mellitus Current Visit: No Status: Chronic Assessment and plan: Previous HbA1c 11.8 in May. Pt not at goal. On insulin pump. SW consulted. Pt would benefit from diabetes education. Qualifiers: Diabetes mellitus complication status: with ketoacidosis Diabetes mellitus complication detail: without coma Qualified Code(s): E10.10 - Type 1 diabetes mellitus with ketoacidosis without coma - Time Spent With Patient Total time spent is greater than 50% in coordination of care (as documented) at patient's floor/unit and/or counseling patient: 25 - 35 minutes <Kimmy Tubbs - Last Filed: 10/14/18 07:49> Date of Encounter: 10/14/18 Internal Medicine - H&P: HPI History of present illness: Mr. Michel is a 48 year old male All Systems PM: A 10-system review of systems was performed and is negative for pertinent findings except as documented above in the HPI. - Constitutional Vitals: Temp Pulse Resp BP Pulse Ox 98.7 F 92 16 121/69 96 10/14/18 07:26 10/14/18 07:00 10/14/18 06:00 10/14/18 07:00 10/14/18 06:00 Internal Med - H&P Results - Labs CBC & Chem 7: 10/14/18 03:00 10/14/18 06:40 Labs: Short CBC 10/14/18 Range/Units 03:00 WBC 10.5 (4.3-11.1) K/mcL Hgb 14.2 (12.9-16.9) g/dL Hct 41.9 (37.5-50.1) % Plt Count 184 (140-400) K/mcL Neutrophils # 8.4 (1.6-8.9) K/mcL BMP 10/14/18 10/14/18 10/14/18 03:00 05:08 06:40 Sodium 131 L 131 L 132 L Potassium 5.0 5.8 H 4.6 Chloride 96 L 100 105 Carbon Dioxide 13 L 10 L* 11 L BUN 17 18 17 Creatinine 1.07 0.98 0.96 Glucose 355 H 335 H 252 H Calcium 9.7 9.0 8.4 L Urine 10/14/18 Range/Units 03:39 Urine Color Yellow (Yellow) Urine Clarity Clear (Clear) Urine pH 5.0 (5.0-8.0) pH Units Ur Specific [place] 1.022 (1.010-1.025) Urine Protein Negative (Neg-Trace) mg/dL Urine Glucose (UA) >=1000 H (Normal) mg/dL - ABG Interpretation ABG results: 10/14/18 10/14/18 03:15 06:51 VBG pH 7.19 L* 7.15 L* VBG pCO2 30 L 27 L VBG pO2 75 H 114 H VBG HCO3 11 L 9 L - Time Spent With Patient Total time spent is greater than 50% in coordination of care (as documented) at patient's floor/unit and/or counseling patient: - Attending Attestation I performed a history and physical examination of the patient and discussed his management with the resident. I reviewed the resident's note and agree with the documented plan of care. Patient is a 48-year-old male with a past medical hi story of type 1 diabetes and recurrent admissions for DKA who is admitted for the same likely secondary to insulin pump malfunction. We will place patient on DKA protocol. On my assessment patient reports that he is already starting to feel better.
[2018-10-14] MEDS ORDERED: Ondansetron 4 MG/2 ML VIAL IVP PRN ×2 (04:38→17:31)
[2018-10-14] MEDS ORDERED: Naloxone 0.4 MG/ML INJ IVP PRN ×2 (04:38→17:31)
[2018-10-14] MEDS ORDERED: Potassium Phosphate 44 MEQ in 0.9 % Sodium Chloride 250 ML IVPB PRN (04:39)
[2018-10-14] MEDS ORDERED: CALCIUM GLUCONATE 1 GM/50 ML IV PRN (04:39)
[2018-10-14] MEDS: 0.9 % Sodium Chloride w KCl 20 MEQ/1,000 ML MLS IVC SCH ×5 (05:37→11:44)
[2018-10-14] MEDS: 0.9 % Sodium Chloride 1,000 ML IVC SCH ×5 (05:37→11:44)
[2018-10-14] MEDS: 0.45 % Sodium Chloride w/KCl 20 MEQ/1,000 ML MLS IVC SCH ×5 (05:39→11:44)
[2018-10-14 05:45] LABS: BUN/Creatinine Ratio 18 (6-26); Blood Urea Nitrogen 18 mg/dL (6-20); Carbon Dioxide 10 mEq/L (23-29); Chloride 100 mEq/L (98-107); Glucose 335 mg/dL (70-105); Osmolality,Calculated 287 (280-300); Phosphorous 4.2 mg/dL (2.7-4.5); Potassium 5.8 mEq/L (3.5-5.1); Sodium 131 mEq/L (136-145); eGFR For African Americans > 60 (> 60); eGFR For Non-African Americans > 60 (> 60)
[2018-10-14] MEDS ORDERED: *HR* Heparin 5,000 UNIT/ML VIAL SQ SCH (06:00)
[2018-10-14 06:59] LABS: VBG HCO3 9 mEq/L (21-27); VBG PCO2 27 mmHg (41-51); VBG PH 7.15 pH Units (7.32-7.42); VBG PO2 114 mmHg (25-50)
[2018-10-14 07:09] LABS: BUN/Creatinine Ratio 18 (6-26); Blood Urea Nitrogen 17 mg/dL (6-20); Calcium 8.4 mg/dL (8.6-10.3); Carbon Dioxide 11 mEq/L (23-29); Chloride 105 mEq/L (98-107); Glucose 252 mg/dL (70-105); Osmolality,Calculated 284 (280-300); Potassium 4.6 mEq/L (3.5-5.1); Sodium 132 mEq/L (136-145); eGFR For African Americans > 60 (> 60); eGFR For Non-African Americans > 60 (> 60)
[2018-10-14 09:21] LABS: Estimated Average Glucose 243 mg/dl; Hemoglobin A1C 10.1 %
[2018-10-14 09:47] LABS: BUN/Creatinine Ratio 16 (6-26); Blood Urea Nitrogen 15 mg/dL (6-20); Calcium 8.4 mg/dL (8.6-10.3); Carbon Dioxide 15 mEq/L (23-29); Chloride 107 mEq/L (98-107); Glucose 174 mg/dL (70-105); Osmolality,Calculated 283 (280-300); Potassium 4.4 mEq/L (3.5-5.1); Sodium 134 mEq/L (136-145); eGFR For African Americans > 60 (> 60); eGFR For Non-African Americans > 60 (> 60)
[2018-10-14 11:27] LABS: BUN/Creatinine Ratio 15 (6-26); Blood Urea Nitrogen 14 mg/dL (6-20); Calcium 8.5 mg/dL (8.6-10.3); Carbon Dioxide 18 mEq/L (23-29); Chloride 112 mEq/L (98-107); Glucose 155 mg/dL (70-105); Osmolality,Calculated 268 (280-300); Potassium 4.2 mEq/L (3.5-5.1); Sodium 127 mEq/L (136-145); eGFR For African Americans > 60 (> 60); eGFR For Non-African Americans > 60 (> 60)
[2018-10-14 12:58] LABS: VBG HCO3 20 mEq/L (21-27); VBG PCO2 38 mmHg (41-51); VBG PH 7.33 pH Units (7.32-7.42); VBG PO2 135 mmHg (25-50)
[2018-10-14 13:14] LABS: BUN/Creatinine Ratio 14 (6-26); Blood Urea Nitrogen 12 mg/dL (6-20); Calcium 8.6 mg/dL (8.6-10.3); Carbon Dioxide 20 mEq/L (23-29); Chloride 110 mEq/L (98-107); Glucose 109 mg/dL (70-105); Osmolality,Calculated 280 (280-300); Potassium 4.2 mEq/L (3.5-5.1); Sodium 135 mEq/L (136-145); eGFR For African Americans > 60 (> 60); eGFR For Non-African Americans > 60 (> 60)
[2018-10-14 16:47] LABS: Blood Urea Nitrogen 12 mg/dL (6-20); Carbon Dioxide 23 mEq/L (23-29); Chloride 106 mEq/L (98-107); Glucose 123 mg/dL (70-105); Osmolality,Calculated 279 (280-300); Potassium 4.3 mEq/L (3.5-5.1); Sodium 134 mEq/L (136-145)
--- NOTE | 2018-10-14 16:47 | Event Note ---
Date of Encounter: 10/14/18 Time of Encounter: 13:30 Mr Michel was admitted earlier this AM with acute DKA. This has now resolved. Appears to be related to pump issue. Pump now restarted and will be monitored overnight for return of DKA. Exam alert Comfortable Mucus membranes moist Heart reg No wheeze abd soft Transfer to med floor.
[2018-10-14 16:50] LABS: BUN/Creatinine Ratio 14 (6-26); eGFR For African Americans > 60 (> 60); eGFR For Non-African Americans > 60 (> 60)
[2018-10-14] MEDS ORDERED: INSULIN PUMP CARTRIDGE SQ SCH (17:31)
[2018-10-14] MEDS: *HR* Heparin 5,000 UNIT/ML VIAL SQ SCH (18:33)
[2018-10-15] MEDS: *HR* Heparin 5,000 UNIT/ML VIAL SQ SCH (05:28)
[2018-10-15 05:33] LABS: Hematocrit 43.4 % (37.5-50.1); Hemoglobin 14.9 g/dL (12.9-16.9); Mean Corpuscular HGB Conc 34.3 g/dL (31.6-35.5); Mean Corpuscular Volume 87.5 fL (83.0-100.0); Mean Platelet Volume 9.5 fL (9.4-12.4); Platelet Count 206 K/mcL (140-400); Red Blood Count 4.96 M/mcL (4.19-5.50); White Blood Count 7.5 K/mcL (4.3-11.1)
[2018-10-15 05:53] LABS: BUN/Creatinine Ratio 16 (6-26); Blood Urea Nitrogen 15 mg/dL (6-20); Calcium 9.6 mg/dL (8.6-10.3); Carbon Dioxide 24 mEq/L (23-29); Chloride 103 mEq/L (98-107); Glucose 170 mg/dL (70-105); Osmolality,Calculated 285 (280-300); Potassium 4.1 mEq/L (3.5-5.1); Sodium 135 mEq/L (136-145); eGFR For African Americans > 60 (> 60); eGFR For Non-African Americans > 60 (> 60)
[2018-10-15 06:40] VITALS: BP 99/68
--- NOTE | 2018-10-15 07:41 | Discharge Summary ---
- NOTES TO OUTPATIENT PROVIDER Notes to Outpatient Provider: Pt admitted with acute DKA related to "Bad pump injection site." Resolved and doing well back on pump. Date of Encounter: 10/15/18 Time of Encounter: 08:42 - Discharge Diagnosis (1) Diabetic keto-acidosis Priority: Primary Status: Resolved Qualifiers: Diabetes mellitus type: type 1 Diabetes mellitus complication detail: without coma Qualified Code(s): E10.10 - Type 1 diabetes mellitus with ketoacidosis without coma (2) Hyponatremia Priority: Secondary Status: Resolved (3) Dehydration Priority: Secondary Status: Resolved (4) Nausea & vomiting Priority: Secondary Status: Resolved Qualifiers: Vomiting type: unspecified Vomiting Intractability: unspecified Qualified Code(s): R11.2 - Nausea with vomiting, unspecified Hospital course: Mr. Michel is a 48 year old male with hx of insulin req DM presented to ED with nausea and vomiting due to acute DKA. He was subsequently admitted. Mr Michel presented to ED with abd pain with nausea and vomiting. He had recently changed his insulin pump site and did not feel it was working correctly. He was found to be in DKA and admitted. He was initially in ICU on insulin drip. He was given IV fluids and supportive care. He had quick resolution of his DKA and his insulin pump was restarted. He had uneventful night and his labwork this AM looks good. He is afebrile and ready for discharge home. - Time Spent with Patient Total time spent providing and/or coordinating discharge services: 29min - Discharge Medications Prescriptions: Continued Insulin Pump Cartridge [Insulin Pump] 0 units SQ AD Home Medications: Insulin Pump Cartridge [Insulin Pump] 0 units SQ AD 06/02/18 [History] Allergies/Adverse Reactions: Allergy/AdvReac Type Severity Reaction Status Date / Time No Known Allergies Allergy Verified 10/14/18 16:42 Date of admission: 10/14/18 08:56 Primary care physician: Jenaro Doherty MD Consults: 10/14/18 04:35 Consult to Product Picker [CONS] Routine Reason for SW Consult: mltiple episodes dka Discharging clinician: Yannick Collins Anticipated date of discharge: 10/15/18 - Constitutional Vitals: Temp Pulse Resp BP Pulse Ox 97.9 F 81 15 99/68 92 10/15/18 06:39 06/07/19 06:39 10/15/18 06:39 10/15/18 06:39 10/15/18 06:39 General appearance: Present: A&O X 3, answers questions appropriately Exam: See below - Head Head exam: Present: normocephalic - Eye Eye exam: Present: EOMI, conjuntiva pink - ENT ENT exam: Present: mucous membranes moist - Respiratory Respiratory exam: Present: CTAB. Absent: rales, rhonchi, wheezes - Cardiovascular Cardiovascular exam: Present: RRR. Absent: systolic murmur, tachycardia - GI/Abdominal GI/Abdominal exam: Present: soft. Absent: tenderness - Extremities Exam Extremities exam: Present: warm. Absent: tenderness - Neurological Exam Neurological exam: Present: alert, oriented X3 - Skin Skin exam: Present: dry, warm - Patient Status Disposition: Home, Self-Care Condition: Good Functional capacity at discharge: independent ambulation Overall status at discharge: patient is progressing back to baseline - Discharge Instructions Follow Up With: Jenaro Doherty MD [Primary Care Provider] - Forms: ED Satisfaction Letter, Work/School Release - Diet and Activity Activity: resume usual activities as tolerated Diet: advance to your usual diet
[2018-10-15] MEDS: 0.9 % Sodium Chloride 1,000 ML IVC SCH (07:52)
[2018-10-15] MEDS: 0.9 % Sodium Chloride w KCl 20 MEQ/1,000 ML MLS IVC SCH (07:52)
[2018-10-15] MEDS: 0.45 % Sodium Chloride w/KCl 20 MEQ/1,000 ML MLS IVC SCH (07:53)
== END 2018-10-15 10:40 | disposition home or self-care (01) | DRG 813 ==
LOC: EMEROOARM 02:09 → ICNU 02:09 → SUATTDRO 04:31 → ICNU 05:26 → 3ANU 18:15
PROVIDERS: ADMIT Internal Medicine; ATTEND Internal Medicine

== ENCOUNTER 2019-05-06 13:10 | Observation (INO) ==
[2019-05-06 14:11] LABS: Bilirubin,Urine Negative (Negative); Blood,Urine Negative (Negative); Clarity,Urine Clear (Clear); Color,Urine Yellow (Yellow); Glucose,Urine (UA) >=1000 mg/dL (Normal); Ketones,Urine 80 mg/dL (Negative); Leukocyte Esterase,Urine Negative (Negative); Nitrite,Urine Negative (Negative); Protein,Urine Negative (Neg-Trace); Specific Gravity,Urine > 1.030 (1.010-1.025); Urobilinogen,Urine Normal (Normal)
[2019-05-06 14:16] LABS: VBG HCO3 19 mEq/L (21-27); VBG PCO2 41 mmHg (41-51); VBG PH 7.27 pH Units (7.32-7.42); VBG PO2 53 mmHg (25-50)
[2019-05-06 14:20] LABS: Hematocrit 43.1 % (37.5-50.1); Hemoglobin 14.6 g/dL (12.9-16.9); Mean Corpuscular HGB Conc 33.9 g/dL (31.6-35.5); Mean Corpuscular Hemoglobin 29.7 pg (28.0-33.3); Mean Corpuscular Volume 87.6 fL (83.0-100.0); Platelet Count 188 K/mcL (140-400); Red Blood Count 4.92 M/mcL (4.19-5.50); Red Cell Distribution Width 12.3 % (11.5-14.5); White Blood Count 5.7 K/mcL (4.3-11.1)
[2019-05-06] MEDS: 0.9 % Sodium Chloride 1,000 ML IVC SCH ×3 (14:20→23:21)
[2019-05-06 14:53] LABS: Alanine Aminotransferase 20 Units/L (7-52); Albumin 4.6 g/dL (3.5-5.7); Albumin/Globulin Ratio 1.2 (1.1-2.2); Alkaline Phosphatase 84 Units/L (34-104); Aspartate Amino Transferase 25 Units/L (13-39); BUN/Creatinine Ratio 19 (6-26); Bilirubin,Direct 0.2 mg/dL (0.0-0.2); Bilirubin,Indirect 0.7 mg/dL (0.0-1.0); Bilirubin,Total 0.9 mg/dL (0.3-1.0); Blood Urea Nitrogen 20 mg/dL (6-20); Calcium 9.9 mg/dL (8.6-10.3); Carbon Dioxide 17 mEq/L (23-29); Chloride 92 mEq/L (98-107); Globulin 3.7 g/dL (2.4-3.5); Glucose 421 mg/dL (70-105); Osmolality,Calculated 287 (280-300); Potassium 4.4 mEq/L (3.5-5.1); Sodium 128 mEq/L (136-145); Total Protein 8.3 g/dL (6.4-8.9); eGFR For African Americans > 60 (> 60); eGFR For Non-African Americans > 60 (> 60)
[2019-05-06] MEDS: Potassium Chloride Elixir 20 MEQ/15 ML UDC PO ONE (15:53)
[2019-05-06] MEDS ORDERED: *HR* Dextrose 50 % in Water (Syg) 50 ML SYRINGE IVP PRN (15:56)
[2019-05-06] MEDS ORDERED: D5% in 0.45% NACL 1,000 ML IVC PRN (15:56)
[2019-05-06] MEDS ORDERED: Insulin Regular, Human 100 UNIT/ML IV PRN (15:56)
[2019-05-06] MEDS ORDERED: D5% in 0.45% NACL w KCl 20 MEQ/1,000 ML MLS IVC PRN (15:56)
[2019-05-06] MEDS ORDERED: Insulin Human Regular 100 UNIT in 0.9 % Sodium Chloride 100 ML IVC SCH ×2 (16:00→22:06)
[2019-05-06] MEDS ORDERED: Naloxone 0.4 MG/ML INJ IVP PRN (16:43)
[2019-05-06] MEDS ORDERED: Ondansetron ODT 4 MG TAB.RAPDIS SL PRN (16:43)
[2019-05-06 16:50] LABS: BUN/Creatinine Ratio 21 (6-26); Blood Urea Nitrogen 20 mg/dL (6-20); Carbon Dioxide 16 mEq/L (23-29); Chloride 97 mEq/L (98-107); Glucose 370 mg/dL (70-105); Osmolality,Calculated 286 (280-300); Potassium 4.9 mEq/L (3.5-5.1); Sodium 129 mEq/L (136-145); eGFR For African Americans > 60 (> 60); eGFR For Non-African Americans > 60 (> 60)
[2019-05-06 20:48] LABS: BUN/Creatinine Ratio 20 (6-26); Blood Urea Nitrogen 19 mg/dL (6-20); Calcium 8.6 mg/dL (8.6-10.3); Carbon Dioxide 19 mEq/L (23-29); Chloride 101 mEq/L (98-107); Glucose 208 mg/dL (70-105); Osmolality,Calculated 278 (280-300); Potassium 4.1 mEq/L (3.5-5.1); Sodium 130 mEq/L (136-145); eGFR For African Americans > 60 (> 60); eGFR For Non-African Americans > 60 (> 60)
[2019-05-06] MEDS: *HR* Heparin 5,000 UNIT/ML VIAL SQ SCH (23:59)
[2019-05-07] MEDS: 0.45 % Sodium Chloride w/KCl 20 MEQ/1,000 ML MLS IVC SCH ×3 (00:01→02:34)
[2019-05-07 00:53] LABS: BUN/Creatinine Ratio 19 (6-26); Blood Urea Nitrogen 16 mg/dL (6-20); Calcium 8.4 mg/dL (8.6-10.3); Carbon Dioxide 20 mEq/L (23-29); Chloride 103 mEq/L (98-107); Glucose 142 mg/dL (70-105); Osmolality,Calculated 276 (280-300); Potassium 4.2 mEq/L (3.5-5.1); Sodium 131 mEq/L (136-145); eGFR For African Americans > 60 (> 60); eGFR For Non-African Americans > 60 (> 60)
[2019-05-07 01:57] LABS: VBG HCO3 22 mEq/L (21-27); VBG PCO2 44 mmHg (41-51); VBG PH 7.32 pH Units (7.32-7.42); VBG PO2 154 mmHg (25-50)
[2019-05-07] MEDS ORDERED: Insulin DETEMIR 100 UNIT/ML X5UNITS SQ ONE (02:22)
[2019-05-07 04:42] LABS: Basophils % 0.3 %; Eosinophils # 0.2 K/mcL (0.0-0.6); Eosinophils % 2.8 %; Immature Granulocytes % 0.1 % (0-4); Lymphocytes # 2.4 K/mcL (0.6-4.6); Lymphocytes % 33.9 %; Mean Corpuscular HGB Conc 34.9 g/dL (31.6-35.5); Mean Corpuscular Hemoglobin 29.9 pg (28.0-33.3); Mean Corpuscular Volume 85.6 fL (83.0-100.0); Mean Platelet Volume 9.9 fL (9.4-12.4); Monocytes # 0.7 K/mcL (0.0-1.3); Monocytes % 10.5 %; Neutrophils # 3.7 K/mcL (1.6-8.9); Platelet Count 176 K/mcL (140-400); Red Blood Count 4.32 M/mcL (4.19-5.50); Red Cell Distribution Width 12.4 % (11.5-14.5); Segmented Neutrophils % 52.4 %; White Blood Count 7.1 K/mcL (4.3-11.1)
[2019-05-07 04:43] LABS: Hemoglobin 12.9 g/dL (12.9-16.9)
[2019-05-07 05:03] LABS: BUN/Creatinine Ratio 16 (6-26); Blood Urea Nitrogen 14 mg/dL (6-20); Calcium 8.6 mg/dL (8.6-10.3); Carbon Dioxide 22 mEq/L (23-29); Chloride 105 mEq/L (98-107); Glucose 206 mg/dL (70-105); Osmolality,Calculated 282 (280-300); Potassium 4.3 mEq/L (3.5-5.1); Sodium 133 mEq/L (136-145); eGFR For African Americans > 60 (> 60); eGFR For Non-African Americans > 60 (> 60)
[2019-05-07] MEDS: *HR* Heparin 5,000 UNIT/ML VIAL SQ SCH (05:46)
[2019-05-07] MEDS: 0.9 % Sodium Chloride 1,000 ML IVC SCH ×4 (06:06→06:08)
[2019-05-07] MEDS: Potassium Chloride Elixir 20 MEQ/15 ML UDC PO ONE (06:08)
[2019-05-07 07:38] VITALS: BP 109/62
[2019-05-07 09:39] LABS: BUN/Creatinine Ratio 15 (6-26); Blood Urea Nitrogen 15 mg/dL (6-20); Calcium 9.5 mg/dL (8.6-10.3); Carbon Dioxide 26 mEq/L (23-29); Chloride 100 mEq/L (98-107); Glucose 162 mg/dL (70-105); Osmolality,Calculated 280 (280-300); Potassium 4.2 mEq/L (3.5-5.1); Sodium 133 mEq/L (136-145); eGFR For African Americans > 60 (> 60); eGFR For Non-African Americans > 60 (> 60)
== END 2019-05-07 11:08 | disposition home or self-care (01) ==
LOC: 2NNU 13:10 → EMEROOARM 13:10 → SUATTDRO 21:20 → 2NNU 21:53
PROVIDERS: ADMIT Family Medicine; ATTEND Internal Medicine